=== PATIENT | female | born 1945 ===

== ENCOUNTER 2018-03-14 10:04 | Inpatient (IN) | payer MEDICARE, MEDICAID ==
[2018-03-14 10:08] VITALS: BMI 37.8
[2018-03-14] MEDS ORDERED: Sodium Chloride 0.9% 500 ML IV STA (10:37)
[2018-03-14] MEDS ORDERED: DiphenhydrAMINE 50 mg/ml Inj IV STA (10:43)
--- NOTE | 2018-03-14 10:55 | ED PDOC ---
HPI: General Adult Time Seen by Provider: 03/14/18 10:22 Chief Complaint (Nursing): Abnormal Skin Integrity Chief Complaint (Provider): Itching History Per: Patient, Family History/Exam Limitations: no limitations Onset/Duration Of Symptoms: Days (1 month) Additional Complaint(s): Pt. with itching all over with spread out rash on her body and extremities. No new food, drinks, lotion, or anything new. Did not take anything for it. Went to pcp yesterday and told to go to the ER. Pt. has acute renal insuff and liver fibrosis. Pt. denies any pain, chest pain, dyspnea, weakness, headaches, dizziness, or any other symptoms. Past Medical History Reviewed: Nursing Documentation, Vital Signs Vital Signs: Last Vital Signs Temp 98.3 F 03/14/18 10:06 Pulse 77 03/14/18 10:06 Resp 20 03/14/18 10:06 BP 169/76 H 03/14/18 10:06 Pulse Ox 98 03/14/18 12:49 - Medical History PMH: Diabetes, HTN, Hyperlipidemia - Surgical History Other surgeries: left leg surgery for screws and then surgery for infection - Family History Family History: States: Unknown Family Hx - Living Arrangements Living Arrangements: With Family - Social History Current smoker - smoking cessation education provided: No - Home Medications Home Medications: Ambulatory Orders Medication Instructions Recorded Dexlansoprazole [Dexilant] 30 mg PO DAILY 03/14/18 Ferrous Gluconate [Ferrous 324 mg PO BID 03/14/18 Gluconate] Gabapentin [Neurontin] 300 mg PO Q12 03/14/18 Hydroxychloroquine Sulfate 200 mg PO Q12 03/14/18 [Plaquenil] Insulin Glargine, Recombina 30 unit SC BID 03/14/18 [Lantus] Insulin Lispro [humALOG] 10 unit SC ACTID 03/14/18 Isosorbide Mononitrate ER [Imdur 30 mg PO DAILY 03/14/18 ER] Losartan [Cozaar] 50 mg PO DAILY 03/14/18 Metoprolol Tartrate [Lopressor] 100 mg PO Q12 03/14/18 - Allergies Allergies/Adverse Reactions: Allergies Allergy/AdvReac Type Severity Reaction Status Date / Time No Known Allergies Allergy Verified 03/14/18 10:31 Review of Systems ROS Statement: Except As Marked, All Systems Reviewed And Found Negative Skin: Positive for: Rash Physical Exam - Reviewed Nursing Documentation Reviewed: Yes Vital Signs Reviewed: Yes - Physical Exam Appears: Positive for: Non-toxic, No Acute Distress Head Exam: Positive for: ATRAUMATIC, NORMOCEPHALIC Skin: Positive for: Warm, Rash (R lower leg, back, chest, abd, arms with patches of blanching erythema, nontender, , no fluctuance, no dc in uriticarial pattern. r upper lateral leg with 2 patches scaley erythematic 4cm diameter areas in psoriatic pattern that are nontender, no fluctuance.). Negative for: Pallor Eye Exam: Positive for: EOMI, Normal appearance, PERRL ENT: Positive for: Normal ENT Inspection. Negative for: Nasal Congestion, Pharyngeal Erythema, Tonsillar Exudate Neck: Positive for: Painless ROM, Supple Cardiovascular/Chest: Positive for: Regular Rate, Rhythm, Chest Non Tender. Negative for: Edema Respiratory: Positive for: Normal Breath Sounds. Negative for: Decreased Breath Sounds, Wheezing Gastrointestinal/Abdominal: Positive for: Soft. Negative for: Tenderness Back: Negative for: L CVA Tenderness, R CVA Tenderness Extremity: Positive for: Normal ROM, Other (L leg with darkened skin; no erythema; nontender; old per pt.). 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 Negative for: Motor/Sensory Deficits, Facial Droop - Laboratory Results Result Diagrams: 03/14/18 10:42 03/14/18 10:42 Interpretation Of Abn Labs: 25/1.9; urine wbc - ECG ECG: Positive for: Interpreted By Me, Viewed By Wi ECG Rhythm: Positive for: Normal QRS, Normal ST Segment, Sinus Rhythm O2 Sat by Pulse Oximetry: 98 Pulse Ox Interpretation: Normal - Radiology X-Ray: Read By Radiologist X-Ray Interpretation: No Acute Disease - Progress ED Course And Treament: 1106: Pt. with rx from Dr. Hassan. Wants admit for eval of renal insuff and liver fibrosis. 1250: Stable. Spoke with Dr. Tapia. Will admit and give further orders when pt. reaches floor. Disposition - Clinical Impression Clinical Impression: UTI (urinary tract infection), Hyperkalemia, Renal insufficiency, Dermatitis - Patient ED Disposition Is Patient to be Admitted: Yes - Disposition Disposition Time: 13:03 Condition: FAIR - Pt Status Changed To: Hospital Disposition Of: Inpatient - Admit Certification Admit to Inpatient:: After my assessment, the patient will require hospitalization for at least two midnights. This is because of the severity of symptoms shown, intensity of services needed, and/or the medical risk in this patient being treated as an outpatient. - POA Present On Arrival: None
[2018-03-14 11:10] LABS: BASO % 0.4 % (0.0-2.0); EOS # 0.7 K/uL (0.0-0.7); EOS % 7.4 % (0.0-4.0); HEMOGLOBIN 10.3 g/dL (12.0-16.0); LYMPH # 2.2 K/uL (1.0-4.3); LYMPH % 23.6 % (20.0-40.0); MEAN CELL VOLUME 89.9 fl (81.0-99.0); MEAN CORPUSCULAR HEMOGLOBIN 30.2 pg (27.0-31.0); MEAN CORPUSCULAR HGB CONC 33.6 g/dL (33.0-37.0); MEAN PLATELET VOLUME 8.9 fl (7.2-11.7); MONO # 0.9 K/uL (0.0-0.8); MONO % 10.1 % (0.0-10.0); NEUT # 5.4 K/uL (1.8-7.0); NEUT % 58.5 % (50.0-75.0); RBC 3.41 Mil/uL (3.80-5.20); RED CELL DISTRIBUTION WIDTH 15.7 % (11.5-14.5); WHITE BLOOD COUNT 9.3 K/uL (4.8-10.8)
[2018-03-14 11:14] LABS: PROTHROMBIN TIME 10.6 Seconds (9.8-13.1)
[2018-03-14 11:17] LABS: PARTIAL THROMBOPLASTIN TIME 31.4 Seconds (25.6-37.1)
[2018-03-14 11:24] LABS: ALB/GLOB RATIO 0.9 (1.0-2.1); ALBUMIN 3.6 g/dL (3.5-5.0); ALT/SGPT 37 U/L (9-52); AST/SGOT 39 U/L (14-36); BLOOD UREA NITROGEN 25 mg/dl (7-17); GFR AFRICAN-AMERICAN 32; GFR NON-AFRICAN AMERICAN 26
[2018-03-14] MEDS ORDERED: DiphenhydrAMINE 50 mg/ml Inj ONE (11:34)
[2018-03-14 12:26] LABS: RENAL EPITHELIAL 1 /hpf (0-3); SQUAMOUS EPITHIAL 26 /hpf (0-5); URINE BACTERIA MANY (<OCC); URINE BILIRUBIN NEGATIVE (NEGATIVE); URINE BLOOD NEGATIVE (NEGATIVE); URINE CLARITY CLOUDY (Clear); URINE COLOR YELLOW (YELLOW); URINE GLUCOSE (UA) NEG (Normal); URINE LEUKOCYTE ESTERASE LARGE Leu/uL (Negative); URINE PROTEIN >=500 mg/dL (NEGATIVE); URINE UROBILINOGEN 0.2-1.0 mg/dL (0.2-1.0)
--- NOTE | 2018-03-14 12:37 | RAD ---
Date of service: 03/14/2018 HISTORY: dyspnea COMPARISON: No prior. FINDINGS: LUNGS: No active pulmonary disease. PLEURA: No significant pleural effusion identified, no pneumothorax apparent. CARDIOVASCULAR: No radiographic findings to suggest acute or significant cardiovascular disease. OSSEOUS STRUCTURES: No significant abnormalities. VISUALIZED UPPER ABDOMEN: Normal. OTHER FINDINGS: None. IMPRESSION: No active disease.
[2018-03-14] MEDS ORDERED: Sod Polystyrene Sulf 15 gm/60 ml Susp PO STA (12:39)
[2018-03-14] MEDS ORDERED: Albuterol 0.083% Inhal Sol (2.5 mg/3 mL) UD INH STA (12:39)
[2018-03-14] MEDS ORDERED: cefTRIAXone (Rocephin) 1 gm Inj IV STA (12:40)
[2018-03-14] MEDS ORDERED: Sod Polystyrene Sulf 15 gm/60 ml Susp ONE (12:45)
[2018-03-14] MEDS ORDERED: cefTRIAXone 1 gm/NS 100ML IVPB ONE (12:45)
[2018-03-14] MEDS ORDERED: Albuterol 0.083% Inhal Sol (2.5 mg/3 mL) UD ONE (12:45)
[2018-03-14] MEDS ORDERED: cefTRIAXone (Rocephin) 1 gm Inj ONE (12:46)
--- NOTE | 2018-03-14 17:11 | CARD ---
APPROVED REPORT Date of service: 03/14/2018 EKG Measurement Heart [id number] <Conclusion> Normal sinus rhythm Minimal voltage criteria for LVH, may be normal variant Borderline ECG
[2018-03-14] MEDS ORDERED: Insulin Regular 100 units/ml ONE (23:15)
[2018-03-14] MEDS: Insulin Detemir 100 Units/ml Inj SC SCH (23:45)
[2018-03-15 06:23] LABS: BASO # 0.1 K/uL (0.0-0.2); BASO % 0.8 % (0.0-2.0); EOS % 0.1 % (0.0-4.0); HEMOGLOBIN 10.7 g/dL (12.0-16.0); LYMPH # 1.5 K/uL (1.0-4.3); LYMPH % 17.3 % (20.0-40.0); MEAN CELL VOLUME 89.7 fl (81.0-99.0); MEAN CORPUSCULAR HGB CONC 33.5 g/dL (33.0-37.0); MEAN PLATELET VOLUME 8.9 fl (7.2-11.7); MONO # 0.6 K/uL (0.0-0.8); MONO % 6.7 % (0.0-10.0); NEUT # 6.7 K/uL (1.8-7.0); NEUT % 75.1 % (50.0-75.0); NRBC % 0.1 % (0.0-0.0); RBC 3.58 Mil/uL (3.80-5.20); RED CELL DISTRIBUTION WIDTH 15.3 % (11.5-14.5); WHITE BLOOD COUNT 8.9 K/uL (4.8-10.8)
[2018-03-15 06:32] LABS: CALCIUM 9.5 mg/dL (8.4-10.2)
[2018-03-15] MEDS ORDERED: DiphenhydrAMINE 50 mg/ml Inj ONE (06:38)
[2018-03-15] MEDS ORDERED: cefTRIAXone (Rocephin) 1 gm Inj IM ONE (08:27)
[2018-03-15] MEDS ORDERED: Sodium Chloride 0.9% 1,000 ML IV SCH ×2 (08:30→19:29)
[2018-03-15] MEDS ORDERED: cefTRIAXone (Rocephin) 1 gm Inj ONE (08:58)
[2018-03-15] MEDS: Insulin Lispro (humaLOG) 100 Units/ml Inj SC SCH ×4 (09:39→21:57)
[2018-03-15] MEDS: Pantoprazole 40 mg EC Tab PO SCH (13:05)
[2018-03-15] MEDS: Insulin Detemir 100 Units/ml Inj SC SCH (21:58)
--- NOTE | 2018-03-15 22:04 | CP.PCM.HP ---
Present on Admission - Present on Admission Any Indicators Present on Admission: No Review of Systems - Review of Systems All systems: reviewed and no additional remarkable complaints except Review of Systems: As per HPI Past Patient History - Past Medical History & Family History Past Medical History?: Yes Past Family History: Reviewed and not pertinent - Past Social History Smoking Status: Never Smoked Alcohol: None Drugs: Denies - CARDIAC Hx Hypercholesterolemia: Yes Hx Hypertension: Yes - PULMONARY Hx Respiratory Disorders: No - NEUROLOGICAL Hx Neurological Disorder: No - HEENT Hx HEENT Problems: No - RENAL Hx Chronic Kidney Disease: No - ENDOCRINE/METABOLIC Hx Diabetes Mellitus Type 2: Yes - HEMATOLOGICAL/ONCOLOGICAL Hx Blood Disorders: No - INTEGUMENTARY Other/Comment: genreralized rash - MUSCULOSKELETAL/RHEUMATOLOGICAL Hx Musculoskeletal Disorders: No Hx Falls: No - GASTROINTESTINAL Hx Gastrointestinal Disorders: No - GENITOURINARY/GYNECOLOGICAL Hx Genitourinary Disorders: No - PSYCHIATRIC Hx Psychophysiologic Disorder: No Hx Substance Use: No - SURGICAL HISTORY Other/Comment: left leg sx - ANESTHESIA Hx Anesthesia: Yes Hx Anesthesia Reactions: No Hx Malignant Hyperthermia: No Has any member of the family had a problem w/ anesthesia?: No Meds Allergies/Adverse Reactions: Allergies Allergy/AdvReac Type Severity Reaction Status Date / Time No Known Allergies Allergy Verified 03/14/18 10:31 Physical Exam - Constitutional Appears: No Acute Distress, Chronically Ill - Head Exam Head Exam: ATRAUMATIC, NORMAL INSPECTION, NORMOCEPHALIC - Eye Exam Eye Exam: EOMI, Normal appearance, PERRL Pupil Exam: NORMAL ACCOMODATION, PERRL - ENT Exam ENT Exam: Mucous Membranes Moist, Normal Exam - Neck Exam Neck exam: Positive for: Full Rom, Normal Inspection - Respiratory Exam Respiratory Exam: Clear to Auscultation Bilateral, NORMAL BREATHING PATTERN. absent: Rales - Cardiovascular Exam Cardiovascular Exam: REGULAR RHYTHM, +S1, +S2 - GI/Abdominal Exam GI & Abdominal Exam: Normal Bowel Sounds, Soft. absent: Tenderness - Extremities Exam Additional comments: Left Leg Dark discoloration with Old healed Scar on lower leg and deformity. Right scaly Rashes and Lesions with Excoriations from the Lower leg to thigh. The Rash is not warm or tender. - Back Exam Back exam: NORMAL INSPECTION - Neurological Exam Neurological exam: Alert, CN II-XII Intact, Normal Gait, Oriented x3, Reflexes Normal - Psychiatric Exam Psychiatric exam: Normal Affect, Normal Mood - Skin Skin Exam: Dry, Intact, Normal Color, Warm Results - Vital Signs Recent Vital Signs: Last Vital Signs Temp 98 F 03/15/18 20:41 Pulse 84 03/15/18 21:52 Resp 20 03/15/18 20:41 BP 172/76 H 03/15/18 21:52 Pulse Ox 94 L 03/15/18 20:41 - Labs Result Diagrams: 03/15/18 06:15 03/15/18 06:15 Labs: Laboratory Results - last 24 hr 03/15/18 03/15/18 06:15 06:15 WBC 8.9 RBC 3.58 L Hgb 10.7 L Hct 32.1 L MCV 89.7 MCH 30.0 MCHC 33.5 RDW 15.3 H Plt Count 117 L MPV 8.9 Neut % (Auto) 75.1 H Lymph % (Auto) 17.3 L Gem % (Auto) 6.7 Eos % (Auto) 0.1 Baso % (Auto) 0.8 Neut # (Auto) 6.7 Lymph # (Auto) 1.5 Gem # (Auto) 0.6 Eos # (Auto) 0.0 Baso # (Auto) 0.1 Sodium 143 Potassium 5.1 H Chloride 106 Carbon Dioxide 28 Anion Gap 14 BUN 29 H Creatinine 1.8 H Est GFR ( Amer) 34 Est GFR (Non-Af Amer) 28 Random Glucose 225 H Calcium 9.5 - Imaging and Cardiology Chest x-ray Status: Report reviewed by me Additional comment: HISTORY: dyspnea COMPARISON: No prior. FINDINGS: LUNGS: No active pulmonary disease. PLEURA: No significant pleural effusion identified, no pneumothorax apparent. CARDIOVASCULAR: No radiographic findings to suggest acute or significant cardiovascular disease. OSSEOUS STRUCTURES: No significant abnormalities. VISUALIZED UPPER ABDOMEN: Normal. OTHER FINDINGS: None. IMPRESSION: No active disease. Assessment & Plan (1) POLINA (acute kidney injury) Assessment and Plan: Most Likely Prerenal IVF Nephro consult Urine Na Status: Acute (2) Scaly patch rash Assessment and Plan: Dermatitis Vs Fungal Rashes Clotrimazole and Hydrocortisone Cream Will Need skin Biopsy. Status: Acute (3) Hyperkalemia Assessment and Plan: IVF Repeat BMP Status: Acute Priority: High (4) UTI (urinary tract infection) Assessment and Plan: IV Rocephin Q24hrs Urine Culture Status: Acute Priority: High
[2018-03-16 03:19] LABS: CREATININE, RANDOM URINE 42.3 mg/dL
--- NOTE | 2018-03-16 05:50 | CON ---
Copied To: Chon Luke MD Attending MD: Chon Luke MD DATE: 03/15/2018 NEPHROLOGY CONSULTATION HISTORY OF PRESENT ILLNESS: The patient is a 72-year-old female with past medical history of hypertension, diabetes, and SLE, presented to ED with recent onset of right leg rash. Nephrology being consulted for renal insufficiency. The patient reports going to PCP shortly before presentation and was told to go to the ER; reports having scaly rash over right leg with associated swelling; patient otherwise reports feeling well. 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 PAST MEDICAL HISTORY: As above. SOCIAL HISTORY: Nonsmoker. FAMILY HISTORY: Denies any kidney disease. REVIEW OF SYSTEMS: CONSTITUTIONAL: Good appetite. No fevers or chills. HEENT: Vision is stable. No difficulty swallowing. RESPIRATORY: Denies any dyspnea. CARDIOVASCULAR: Denies chest pains or palpitations. GI: Denies nausea, vomiting, or diarrhea. : Occasionally with UTI; reports increased urinary frequency lately. MUSCULOSKELETAL: Denies any NSAIDs use for her arthralgias. Walks. NEUROLOGIC: Denies any dizziness or headache. SKIN: As per HPI. The patient also reports left lower extremity skin infection in [facility] in 08/2017. PHYSICAL EXAMINATION: VITAL SIGNS: Earlier today, blood pressure 168/83, heart rate 95, respirations 16, temperature 97.7, O2 sat 98% on room air. GENERAL: No distress. Conversing coherently in full sentences. HEENT: Moist mucous membranes. Nonicteric. No cervical lymphadenopathy. RESPIRATORY: Lungs are clear to auscultation bilaterally. No rales, no rhonchi, no wheezes. CARDIOVASCULAR: Heart sounds S1, S2 normal. No murmurs, no gallops, no rubs. GI: Abdomen is soft, nontender, and nondistended. : No bladder distension. EXTREMITIES: Mild right lower leg edema. SKIN: Warm. No cyanosis. The patient with raised scaly plaques over right lower leg. NEUROLOGIC: No tremor. PSYCHIATRIC: Normal affect. LABORATORY DATA: CBC: WBC 8.9, hemoglobin 7.7, hematocrit 32.1, platelets 117. Chemistry panel: Sodium 143, potassium 5.1 decreased from 5.4, chloride 106, bicarb 28, BUN 29, creatinine 1.8, glucose 225. Albumin from yesterday is 3.6. Urine studies; urine protein greater than 500 mg/dL, large leukocyte esterase, 110 wbc's per high power field, 9 rbc's per high power field, 26 squamous epithelial cells per high power field, many bacteria. Chest x-ray directly visualized, lungs clear. ASSESSMENT AND PLAN: 1. Chronic kidney disease. Baseline renal function not available as we have no previous labs. However, renal function is currently stable; patient with mild hyperkalemia in the setting of being on ARB; has had some issues with hyperkalemia in the past. Agree with IV fluids, we will decrease rate to 50 mL per hour. Low potassium diet. Potassium still not controlled, we will hold losartan tomorrow. Agree with Kayexalate; as an outpatient, the patient may need to be on standing dose of potassium binding resin. Avoid nephrotoxic agents (NSAIDs, phosphate enema, etc.). 2. Proteinuria, significant proteinuria on urinalysis; in the setting of having possibility of lupus nephritis exists; any previous workup done. We will obtain random urine for protein, creatinine. We will obtain C3, C4, anti-double stranded DNA, anti-Elkins antibodies to look for evidence of lupus activity. We will continue Losartan for anti-proteinuric effect. 3. Hypertensive chronic kidney disease. Blood pressure currently elevated, likely worsened by being on IV fluids. We will give dose of Lasix 20 mg IV push. Continue current blood pressure medications of metoprolol 100 mg every 12 hours, Imdur 30 mg daily, and Losartan 50 mg daily. 4. Anemia. We will check iron studies to see if the patient has anemia of chronic kidney disease. 5. Urinary tract infection. The patient with gram-positive cocci in urine. We will await sensitivities; should those antibiotics for creatinine clearance less than 40. Thank you for this referral. We will be following up closely. Chon Luke MD
[2018-03-16] MEDS: Insulin Lispro (humaLOG) 100 Units/ml Inj SC SCH ×4 (07:02→22:36)
[2018-03-16 07:23] LABS: CALCIUM 8.8 mg/dL (8.4-10.2)
[2018-03-16 07:32] LABS: IRON 113 ug/dL (37-170)
[2018-03-16 07:41] LABS: % IRON SATURATION 36 % (20-55); TOTAL IRON BINDING CAPACITY 309 ug/dL (250-450)
[2018-03-16 07:54] LABS: FERRITIN 60.7 ng/Ml (11.1-264.0)
[2018-03-16] MEDS ORDERED: cefTRIAXone (Rocephin) 1 gm Inj IM SCH (09:00)
[2018-03-16] MEDS: Pantoprazole 40 mg EC Tab PO SCH (09:52)
--- NOTE | 2018-03-16 11:32 | US ---
Date of service: 03/16/2018 PROCEDURE: Ultrasound of the Kidneys HISTORY: renal insufficiency, r/o hydronephrosis COMPARISON: None available. TECHNIQUE: Sonogram of the kidneys. FINDINGS: RIGHT KIDNEY: Measures: 12.4 x 3.9 x 3.8 cm. Normal in size and contour. Increased echogenicity. No stone, solid mass lesion or hydronephrosis visualized. LEFT KIDNEY: Measures: 10.2 x 3.8 x 3.6 cm. Normal in size and contour. Increased echogenicity. No stone, solid mass lesion or hydronephrosis visualized. OTHER FINDINGS: None. IMPRESSION: Increased bilateral cortical echogenicity can be seen in the setting of medical renal disease. No evidence of nephrolithiasis or hydronephrosis.
[2018-03-16 16:09] LABS: COMPLEMENT C4 21.3 mg/dL (14.0-44.0)
--- NOTE | 2018-03-16 19:16 | CP.PCM.PN ---
Subjective - Date & Time of Evaluation Date of Evaluation: 03/16/18 Time of Evaluation: 16:00 - Subjective Subjective: Patient reports feeling well; no lower ext pain; Objective - Vital Signs/Intake and Output Vital Signs (last 24 hours): Temp Pulse Resp BP Pulse Ox 97.8 F 75 20 157/71 H 97 03/16/18 16:04 03/16/18 16:04 03/16/18 16:04 03/16/18 16:04 03/16/18 16:04 - Medications Medications: Current Medications Clotrimazole (Lotrimin Af 1%) 1 applic TOP BID [facility] Last Admin: 03/16/18 17:24 Dose: 1 applic Diphenhydramine HCl (Benadryl) 25 mg PO Q6 PRN PRN Reason: Itching / Pruritus Last Admin: 03/16/18 03:11 Dose: 25 mg Ferrous Gluconate (Fergon) 324 mg PO BID [facility] Last Admin: 03/16/18 17:24 Dose: 324 mg Gabapentin (Neurontin) 300 mg PO Q12 [facility] Last Admin: 03/16/18 09:52 Dose: 300 mg Heparin Sodium (Porcine) (Heparin) 5,000 units SC Q8 [facility] PRN Reason: Protocol Last Admin: 03/16/18 17:23 Dose: 5,000 units Hydrocortisone (Cortizone 2.5% Cream) 1 applic TP BID [facility] Last Admin: 03/16/18 17:24 Dose: 1 applic Hydroxychloroquine Sulfate (Plaquenil) 200 mg PO Q12 [facility] PRN Reason: Protocol Last Admin: 03/16/18 09:52 Dose: 200 mg Ceftazidime 1 gm/ Sodium (Chloride) 100 mls @ 100 mls/hr IV DAILY [facility] PRN Reason: Protocol Last Admin: 03/16/18 12:41 Dose: 100 mls/hr Insulin Detemir (Levemir) 30 units SC HS [facility] Last Admin: 03/15/18 21:58 Dose: 30 units Insulin Human Lispro (Humalog) 0 units SC ACHS [facility] PRN Reason: Protocol Last Admin: 03/16/18 17:22 Dose: 1 unit Isosorbide Mononitrate (Imdur Er) 30 mg PO DAILY [facility] Last Admin: 03/16/18 09:49 Dose: 30 mg Lactic Acid (Lac-Hydrin 12% Lotion (225 G)) 1 applic TOP TID [facility] Last Admin: 03/16/18 17:22 Dose: 1 applic Losartan Potassium (Cozaar) 100 mg PO DAILY [facility] Last Admin: 03/16/18 15:47 Dose: 100 mg Metoprolol Tartrate (Lopressor) 100 mg PO Q12 [facility] Last Admin: 03/16/18 09:50 Dose: 100 mg Pantoprazole Sodium (Protonix Ec Tab) 40 mg PO DAILY [facility] Last Admin: 03/16/18 09:52 Dose: 40 mg - Labs Labs: 03/15/18 06:15 03/16/18 05:15 PT 10.6 Seconds (9.8-13.1) 03/14/18 10:42 INR 1.0 03/14/18 10:42 APTT 31.4 Seconds (25.6-37.1) 03/14/18 10:42 - Constitutional Appears: Non-toxic, No Acute Distress - Eye Exam Eye Exam: Normal appearance - Respiratory Exam Respiratory Exam: Clear to Ausculation Bilateral. absent: Respiratory Distress - Cardiovascular Exam Cardiovascular Exam: RRR, +S1, +S2 - GI/Abdominal Exam GI & Abdominal Exam: Soft. absent: Distended, Tenderness - Neurological Exam Neurological Exam: Alert, Awake - Psychiatric Exam Psychiatric exam: Normal Affect, Normal Mood. absent: Agitated - Skin Skin Exam: Warm. absent: Cyanosis Assessment and Plan (1) CKD (chronic kidney disease), stage IV Assessment & Plan: Stable renal function; hyperkalemia resolved; proteinuric kidney disease in patient with both DM and SLE; lupus nephritis remains a concern and will need close f/u as outpatient; hyperkalemia resolved; -f/u anti-DS DNA Ab, anti-Sm Ab; -continue RON blockade with losartan 100 mg daily (669 mg/g proteinuria by spot ratio with patient on losartan 50 mg daily); -low K diet (patient counseled); -avoid nephrotoxic agents; Status: Chronic (2) Hypertensive chronic kidney disease Assessment & Plan: BP elevated after getting IVF yesterday; agree with increased dose of losartan; will benefit from small dose of lasix 20 mg daily; Status: Acute (3) Hyperkalemia Status: Resolved (4) SLE (systemic lupus erythematosus) Status: Chronic
--- NOTE | 2018-03-16 21:34 | CP.PCM.PN ---
Subjective - Date & Time of Evaluation Date of Evaluation: 03/16/18 Time of Evaluation: 13:30 - Subjective Subjective: Patient feels a lot better. Objective - Vital Signs/Intake and Output Vital Signs (last 24 hours): Temp Pulse Resp BP Pulse Ox 98.2 F 80 20 174/78 H 97 03/16/18 20:11 03/16/18 21:10 03/16/18 20:11 03/16/18 21:10 03/16/18 20:11 - Medications Medications: Current Medications Clotrimazole (Lotrimin Af 1%) 1 applic TOP BID [facility] Last Admin: 03/16/18 17:24 Dose: 1 applic Diphenhydramine HCl (Benadryl) 25 mg PO Q6 PRN PRN Reason: Itching / Pruritus Last Admin: 03/16/18 03:11 Dose: 25 mg Ferrous Gluconate (Fergon) 324 mg PO BID [facility] Last Admin: 03/16/18 17:24 Dose: 324 mg Gabapentin (Neurontin) 300 mg PO Q12 [facility] Last Admin: 03/16/18 21:09 Dose: 300 mg Heparin Sodium (Porcine) (Heparin) 5,000 units SC Q8 [facility] PRN Reason: Protocol Last Admin: 03/16/18 17:23 Dose: 5,000 units Hydrocortisone (Cortizone 2.5% Cream) 1 applic TP BID [facility] Last Admin: 03/16/18 17:24 Dose: 1 applic Hydroxychloroquine Sulfate (Plaquenil) 200 mg PO Q12 [facility] PRN Reason: Protocol Last Admin: 03/16/18 21:09 Dose: 200 mg Ceftazidime 1 gm/ Sodium (Chloride) 100 mls @ 100 mls/hr IV DAILY [facility] PRN Reason: Protocol Last Admin: 03/16/18 12:41 Dose: 100 mls/hr Insulin Detemir (Levemir) 30 units SC HS [facility] Last Admin: 03/15/18 21:58 Dose: 30 units Insulin Human Lispro (Humalog) 0 units SC ACHS [facility] PRN Reason: Protocol Last Admin: 03/16/18 17:22 Dose: 1 unit Isosorbide Mononitrate (Imdur Er) 30 mg PO DAILY [facility] Last Admin: 03/16/18 09:49 Dose: 30 mg Lactic Acid (Lac-Hydrin 12% Lotion (225 G)) 1 applic TOP TID [facility] Last Admin: 03/16/18 17:22 Dose: 1 applic Losartan Potassium (Cozaar) 100 mg PO DAILY [facility] Last Admin: 03/16/18 15:47 Dose: 100 mg Metoprolol Tartrate (Lopressor) 100 mg PO Q12 [facility] Last Admin: 03/16/18 21:10 Dose: 100 mg Pantoprazole Sodium (Protonix Ec Tab) 40 mg PO DAILY [facility] Last Admin: 03/16/18 09:52 Dose: 40 mg - Labs Labs: 03/15/18 06:15 03/16/18 05:15 PT 10.6 Seconds (9.8-13.1) 03/14/18 10:42 INR 1.0 03/14/18 10:42 APTT 31.4 Seconds (25.6-37.1) 03/14/18 10:42
[2018-03-16] MEDS: Insulin Detemir 100 Units/ml Inj SC SCH (22:37)
[2018-03-17] MEDS: Insulin Lispro (humaLOG) 100 Units/ml Inj SC SCH ×2 (09:15→12:44)
[2018-03-17] MEDS: Pantoprazole 40 mg EC Tab PO SCH (09:19)
[2018-03-17 16:31] VITALS: BP 160/80; PULSE 78; RESP 20; TEMP 98; O2SAT 98
--- NOTE | 2018-03-17 21:05 | CP.PCM.PN ---
Objective - Vital Signs/Intake and Output Vital Signs (last 24 hours): Temp Pulse Resp BP Pulse Ox 98.0 F 78 20 160/80 H 98 03/17/18 16:30 03/17/18 16:30 03/17/18 16:30 03/17/18 16:30 03/17/18 16:30 - Labs Labs: 03/15/18 06:15 03/16/18 05:15 PT 10.6 Seconds (9.8-13.1) 03/14/18 10:42 INR 1.0 03/14/18 10:42 APTT 31.4 Seconds (25.6-37.1) 03/14/18 10:42 Assessment and Plan (1) CKD (chronic kidney disease), stage IV Status: Chronic (2) Hypertensive chronic kidney disease Status: Acute (3) SLE (systemic lupus erythematosus) Status: Chronic
== END 2018-03-17 16:45 | disposition home or self-care (01) | DRG 690 ==
LOC: H.ER 10:04 → H.ERHOLD 12:46 → H.TEL 03-15 11:24
PROVIDERS: ADMIT Internal Medicine; ATTEND Internal Medicine
DX: N39.0 Urinary tract infection, site not specified (principal); N18.4 Chronic kidney disease, stage 4 (severe); B95.61 Methicillin susceptible Staphylococcus aureus infection as the cause of diseases classified elsewhere; E87.5 Hyperkalemia; I12.9 Hypertensive chronic kidney disease with stage 1 through stage 4 chronic kidney disease, or unspecified chronic kidney disease; E11.22 Type 2 diabetes mellitus with diabetic chronic kidney disease; M32.9 Systemic lupus erythematosus, unspecified; D63.1 Anemia in chronic kidney disease; R21 Rash and other nonspecific skin eruption; E78.5 Hyperlipidemia, unspecified; E78.00 Pure hypercholesterolemia, unspecified; Z79.899 Other long term (current) drug therapy

== ENCOUNTER 2018-05-30 08:03 | Inpatient (IN) | payer MEDICARE, MEDICAID ==
[2018-05-30] MEDS ORDERED: Labetalol 5 mg/ml Inj 20ML IVP STA ×2 (08:29→09:18)
[2018-05-30] MEDS ORDERED: Labetalol 5mg/ml (4ml) ONE ×2 (08:33→12:19)
[2018-05-30] MEDS ORDERED: Labetalol 5mg/ml (4ml) IVP STA ×2 (08:43→11:59)
[2018-05-30 09:01] LABS: BASO # 0.1 K/uL (0.0-0.2); BASO % 0.7 % (0.0-2.0); EOS # 0.1 K/uL (0.0-0.7); EOS % 0.8 % (0.0-4.0); HEMOGLOBIN 11.7 g/dL (12.0-16.0); LYMPH # 2.5 K/uL (1.0-4.3); LYMPH % 25.1 % (20.0-40.0); MEAN CELL VOLUME 89.4 fl (81.0-99.0); MEAN CORPUSCULAR HEMOGLOBIN 29.7 pg (27.0-31.0); MEAN CORPUSCULAR HGB CONC 33.3 g/dL (33.0-37.0); MEAN PLATELET VOLUME 9.4 fl (7.2-11.7); MONO # 0.7 K/uL (0.0-0.8); NEUT # 6.5 K/uL (1.8-7.0); NEUT % 66.4 % (50.0-75.0); NRBC % 0.2 % (0.0-0.0); RBC 3.94 Mil/uL (3.80-5.20); RED CELL DISTRIBUTION WIDTH 15.1 % (11.5-14.5); WHITE BLOOD COUNT 9.8 K/uL (4.8-10.8)
[2018-05-30 09:02] LABS: PROTHROMBIN TIME 11.2 Seconds (9.8-13.1)
[2018-05-30 09:05] LABS: PARTIAL THROMBOPLASTIN TIME 30.2 Seconds (25.6-37.1)
[2018-05-30 09:07] LABS: ALB/GLOB RATIO 0.8 (1.0-2.1); ALBUMIN 3.6 g/dL (3.5-5.0); CALCIUM 9.4 mg/dL (8.4-10.2)
[2018-05-30 09:18] LABS: TROPONIN I 0.023 ng/mL (0.00-0.120)
--- NOTE | 2018-05-30 09:26 | CT ---
Date of service: 05/30/2018 PROCEDURE: CT HEAD WITHOUT CONTRAST. HISTORY: r/o ICH COMPARISON: None available. TECHNIQUE: Axial computed tomography images were obtained through the head/brain without intravenous contrast. Radiation dose: Total exam DLP = 784.61 mGy-cm. This CT exam was performed using one or more of the following dose reduction techniques: Automated exposure control, adjustment of the mA and/or kV according to patient size, and/or use of iterative reconstruction technique. FINDINGS: HEMORRHAGE: No intracranial hemorrhage. BRAIN: Good corticomedullary differentiation is seen. Limited, proportional, diffuse expansion of the ventriculosulcal and cisternal spaces is appreciated with mild white matter lucency compatible with diffuse cerebral atrophy and chronic microangiopathy. No suspicious extra-axial fluid collection is identified and the midline brain anatomy appears grossly nonfocal as imaged. There is no mass effect throughout. VENTRICLES: Unremarkable. No hydrocephalus. CALVARIUM: No destructive bony lesion or displaced fracture identified including through the skullbase. PARANASAL SINUSES: Unremarkable as visualized. No significant inflammatory changes. MASTOID AIR CELLS: Unremarkable as visualized. No inflammatory changes. OTHER FINDINGS: None. IMPRESSION: Limited age-related neuro degenerative change are identified, which appear age-appropriate. No acute intracranial findings as discussed above. No fracture appreciable.
--- NOTE | 2018-05-30 13:00 | CT ---
Date of service: 05/30/2018 PROCEDURE: CT Abdomen and Pelvis without intravenous contrast HISTORY: upper abd pain COMPARISON: None. TECHNIQUE: Technique. Contrast dose: Radiation dose: Total exam DLP = 923.42 mGy-cm. This CT exam was performed using one or more of the following dose reduction techniques: Automated exposure control, adjustment of the mA and/or kV according to patient size, and/or use of iterative reconstruction technique. FINDINGS: LOWER THORAX: Unremarkable. Small hiatal hernia. LIVER: Unremarkable. No gross lesion or ductal dilatation. GALLBLADDER AND BILE DUCTS: Unremarkable. PANCREAS: Unremarkable. No gross lesion or ductal dilatation. SPLEEN: Unremarkable. ADRENALS: Unremarkable. No mass. KIDNEYS AND URETERS: Unremarkable. No hydronephrosis. No solid mass. VASCULATURE: Unremarkable. No aortic aneurysm. No aortic atherosclerotic calcification or mural plaque present. BOWEL: Unremarkable. No obstruction. No gross mural thickening. APPENDIX: Unremarkable. Normal appendix. PERITONEUM: Unremarkable. No free fluid. No free air. LYMPH NODES: Unremarkable. No enlarged lymph nodes. BLADDER: Unremarkable. REPRODUCTIVE: Calcified leiomyomatous uterus. Sigmoid colon diverticulosis. BONES: No acute fracture. OTHER FINDINGS: None. IMPRESSION: Calcified leiomyomatous uterus. Sigmoid colon diverticulosis. Small hiatal hernia.
--- NOTE | 2018-05-30 13:37 | ED PDOC ---
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 denies: Diarrhea Exacerbating Factors: None Alleviating Factors: None Past Medical History Reviewed: Historical Data, Nursing Documentation, Vital Signs Vital Signs: Last Vital Signs Temp 98.3 F 05/30/18 08:11 Pulse 99 H 05/30/18 12:18 Resp 22 05/30/18 12:18 BP 210/109 H 05/30/18 12:18 Pulse Ox 96 05/30/18 12:18 - Medical History PMH: Diabetes, HTN, Hypercholesterolemia, Hyperlipidemia Denies: Chronic Kidney Disease - Family History Family History: States: Unknown Family Hx - Living Arrangements Living Arrangements: With Family - Social History Current smoker - smoking cessation education provided: No - Immunization History Hx Tetanus Toxoid Vaccination: Yes Hx Influenza Vaccination: Yes Hx Pneumococcal Vaccination: Yes - Home Medications Home Medications: Ambulatory Orders Medication Instructions Recorded Dexlansoprazole [Dexilant] 30 mg PO DAILY 03/14/18 Ferrous Gluconate 324 mg PO BID 03/14/18 Gabapentin [Neurontin] 300 mg PO Q12 03/14/18 Hydroxychloroquine Sulfate 200 mg PO Q12 03/14/18 [Plaquenil] Insulin Glargine, Recombina 30 unit SC BID 03/14/18 [Lantus] Insulin Lispro [humALOG] 10 unit SC ACTID 03/14/18 Isosorbide Mononitrate ER [Imdur 30 mg PO DAILY 03/14/18 ER] Metoprolol Tartrate [Lopressor] 100 mg PO Q12 03/14/18 Furosemide [Lasix] 20 mg PO DAILY #30 tab 03/17/18 Losartan [Cozaar] 100 mg PO DAILY #30 tab 03/17/18 amLODIPine [Norvasc] 5 mg PO DAILY #30 tab 03/17/18 - Allergies Allergies/Adverse Reactions: Allergies Allergy/AdvReac Type Severity Reaction Status Date / Time No Known Allergies Allergy Verified 05/30/18 08:12 Review of Systems ROS Statement: Except As Marked, All Systems Reviewed And Found Negative Constitutional: Negative for: Fever ENT: Negative for: Ear Pain, Nose Discharge Cardiovascular: Negative for: Chest Pain Respiratory: Negative for: Cough Gastrointestinal: Positive for: Nausea, Vomiting, Abdominal Pain Genitourinary Female: Negative for: Dysuria, Vaginal Bleeding Musculoskeletal: Positive for: Back Pain. Negative for: Neck Pain Skin: Negative for: Rash, Lesions Neurological: Positive for: Headache, Dizziness. Negative for: Weakness, Numbness, Confusion Physical Exam - Reviewed Nursing Documentation Reviewed: Yes Vital Signs Reviewed: Yes - Physical Exam Appears: Positive for: Non-toxic, Uncomfortable (vomiiting) Head Exam: Positive for: ATRAUMATIC, NORMAL INSPECTION, NORMOCEPHALIC Skin: Positive for: Normal Color, Warm, DRY Eye Exam: Positive for: EOMI, Normal appearance, PERRL ENT: Positive for: Normal ENT Inspection, Other (dry mucous membranes) Neck: Positive for: Normal, Painless ROM Cardiovascular/Chest: Positive for: Regular Rate, Rhythm Respiratory: Positive for: CNT, Normal Breath Sounds Gastrointestinal/Abdominal: Positive for: Soft. Negative for: Tenderness, Guarding Back: Positive for: Normal Inspection Extremity: Positive for: Normal ROM Neurologic/Psych: Positive for: Alert, Oriented. 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 trop neg x1 Appears clinically dehydrated however hence 1/2 NS initiated gentle rate. Admit tele Dr Tapia market consultant medicine. Awaiting [address] FINDINGS: HEMORRHAGE: No intracranial hemorrhage. BRAIN: Good corticomedullary differentiation is seen. Limited, proportional, diffuse expansion of the ventriculosulcal and cisternal spaces is appreciated with mild white matter lucency compatible with diffuse cerebral atrophy and chronic microangiopathy. No suspicious extra-axial fluid collection is identified and the midline brain anatomy appears grossly nonfocal as imaged. There is no mass e ffect throughout. VENTRICLES: Unremarkable. No hydrocephalus. CALVARIUM: No destructive bony lesion or displaced fracture identified including through the skullbase. PARANASAL SINUSES: Unremarkable as visualized. No significant inflammatory changes. MASTOID AIR CELLS: Unremarkable as visualized. No inflammatory changes. OTHER FINDINGS: None. IMPRESSION: Limited age-related neuro degenerative change are identified, which appear age- appropriate. No acute intracranial findings as discussed above. No fracture appreciable. 1256 Abd/Pelvis CT FINDINGS: LOWER THORAX: Unremarkable. Small hiatal hernia. LIVER: Unremarkable. No gross lesion or ductal dilatation. GALLBLADDER AND BILE DUCTS: Unremarkable. PANCREAS: Unremarkable. No gross lesion or ductal dilatation. SPLEEN: Unremarkable. ADRENALS: Unremarkable. No mass. KIDNEYS AND URETERS: Unremarkable. No hydronephrosis. No solid mass. VASCULATURE: Unremarkable. No aortic aneurysm. No aortic atherosclerotic calcification or mural plaque present. BOWEL: Unremarkable. No obstruction. No gross mural thickening. APPENDIX: Unremarkable. Normal appendix. PERITONEUM: Unremarkable. No free fluid. No free air. LYMPH NODES: Unremarkable. No enlarged lymph nodes. BLADDER: Unremarkable. REPRODUCTIVE: Calcified leiomyomatous uterus. Sigmoid colon diverticulosis. BONES: No acute fracture. OTHER FINDINGS: None. IMPRESSION: Calcified leiomyomatous uterus. Sigmoid colon diverticulosis. Small hiatal hernia. 1409 Chest X-Ray FINDINGS: LUNGS: No active pulmonary disease. PLEURA: No significant pleural effusion identified, no pneumothorax apparent. CARDIOVASCULAR: No atherosclerotic calcification present No radiographic findings to suggest acute or significant cardiovascular disease. OSSEOUS STRUCTURES: No significant abnormalities. VISUALIZED UPPER ABDOMEN: Normal. OTHER FINDINGS: None. IMPRESSION: No active disease. No significant interval change compared to the prior examination(s). Disposition - Clinical Impression Clinical Impression: Hypertensive emergency, Acute renal failure, Abdominal pain - Patient ED Disposition Is Patient to be Admitted: Yes - Disposition Disposition Time: 13:01 Condition: FAIR - Pt Status Changed To: Hospital Disposition Of: Inpatient - Admit Certification Admit to Inpatient:: After my assessment, the patient will require hospitalization for at least two midnights. This is because of the severity of symptoms shown, intensity of services needed, and/or the medical risk in this patient being treated as an outpatient. - POA Present On Arrival: Poor Glycemic Control
--- NOTE | 2018-05-30 14:13 | RAD ---
Date of service: 05/30/2018 HISTORY: SOB COMPARISON: 03/14/2018. FINDINGS: LUNGS: No active pulmonary disease. PLEURA: No significant pleural effusion identified, no pneumothorax apparent. CARDIOVASCULAR: No atherosclerotic calcification present No radiographic findings to suggest acute or significant cardiovascular disease. OSSEOUS STRUCTURES: No significant abnormalities. VISUALIZED UPPER ABDOMEN: Normal. OTHER FINDINGS: None. IMPRESSION: No active disease. No significant interval change compared to the prior examination(s).
--- NOTE | 2018-05-30 15:36 | CARD ---
APPROVED REPORT Date of service: 05/30/2018 EKG Measurement Heart [id number] <Conclusion> Normal sinus rhythm Minimal voltage criteria for LVH, may be normal variant Nonspecific ST abnormality Abnormal ECG
[2018-05-30] MEDS: Insulin Lispro (humaLOG) 100 Units/ml Inj SC SCH ×2 (18:12→21:59)
[2018-05-30] MEDS: Sodium Chloride 0.45% 1,000 ML IV SCH (18:15)
[2018-05-30 20:58] LABS: SQUAMOUS EPITHIAL 3 /hpf (0-5); URINE BACTERIA RARE (<OCC); URINE BILIRUBIN NEGATIVE (NEGATIVE); URINE BLOOD NEGATIVE (NEGATIVE); URINE CLARITY SLIGHTY-CLOUDY (Clear); URINE COLOR YELLOW (YELLOW); URINE GLUCOSE (UA) >=500 mg/dL (Normal); URINE LEUKOCYTE ESTERASE NEG Leu/uL (Negative); URINE PROTEIN >=500 mg/dL (NEGATIVE); URINE UROBILINOGEN 0.2-1.0 mg/dL (0.2-1.0)
[2018-05-31] MEDS: Sodium Chloride 0.45% 1,000 ML IV SCH (06:00)
[2018-05-31] MEDS: Insulin Lispro (humaLOG) 100 Units/ml Inj SC SCH ×3 (07:04→16:47)
--- NOTE | 2018-05-31 07:30 | CP.PCM.HP ---
History of Present Illness - History of Present Illness History of Present Illness: CC: Abdominal Pain and N/V History of Present Illness: A 72yoF with H/O HTN presented with Abdominal Pain 7-7/10 epigastric with associ ated-bloody vomiting and nauseas. Denies fever, diarrhea or constipation. In the ER, patient was found in Hypertensive emergency, and admitted in telemetry after the BP stayed SBP>200 and DBP>110 despite IV Labetalol was given Denies RODRIGUEZ or Visual changes. CT Head W/O contrast- No ICH. Present on Admission - Present on Admission Any Indicators Present on Admission: No Review of Systems - Review of Systems All systems: reviewed and no additional remarkable complaints except Review of Systems: as per HPI Past Patient History - Past Medical History & Family History Past Medical History?: Yes Past Family History: Reviewed and not pertinent - Past Social History Smoking Status: Never Smoked Alcohol: None Drugs: Denies - CARDIAC Hx Cardiac Disorders: Yes Hx Hypercholesterolemia: Yes Hx Hypertension: Yes - PULMONARY Hx Respiratory Disorders: No - NEUROLOGICAL Hx Neurological Disorder: No - HEENT Hx HEENT Problems: No - RENAL Hx Chronic Kidney Disease: Yes Hx Dialysis: No Hx Kidney Stones: No Hx Neurogenic Bladder: No Hx Pyelonephritis: No Hx Renal (Kidney) Cancer: No Hx Renal Failure: No - ENDOCRINE/METABOLIC Hx Endocrine Disorders: Yes Hx Diabetes Mellitus Type 2: Yes Other/Comment: Lupus - HEMATOLOGICAL/ONCOLOGICAL Hx Blood Disorders: No Hx AIDS: No Hx Human Immunodeficiency Virus (HIV): No - INTEGUMENTARY Hx Dermatological Problems: Yes Other/Comment: Dermatitis - MUSCULOSKELETAL/RHEUMATOLOGICAL Hx Musculoskeletal Disorders: Yes Hx Falls: Yes (a month ago) - GASTROINTESTINAL Hx Gastrointestinal Disorders: No - GENITOURINARY/GYNECOLOGICAL Hx Genitourinary Disorders: Yes Hx Urinary Tract Infection: Yes - PSYCHIATRIC Hx Psychophysiologic Disorder: No Hx Substance Use: No - SURGICAL HISTORY Hx Surgeries: Yes Other/Comment: left leg sx - ANESTHESIA Hx Anesthesia: Yes Hx Anesthesia Reactions: No Hx Malignant Hyperthermia: No Meds Allergies/Adverse Reactions: Allergies Allergy/AdvReac Type Severity Reaction Status Date / Time No Known Allergies Allergy Verified 05/30/18 08:12 Physical Exam - Constitutional Appears: Well, No Acute Distress - Head Exam Head Exam: ATRAUMATIC, NORMAL INSPECTION, NORMOCEPHALIC - Eye Exam Eye Exam: EOMI, Normal appearance, PERRL Pupil Exam: NORMAL ACCOMODATION, PERRL - ENT Exam ENT Exam: Mucous Membranes Moist, Normal Exam - Neck Exam Neck exam: Positive for: Normal Inspection - Respiratory Exam Respiratory Exam: Clear to Auscultation Bilateral, NORMAL BREATHING PATTERN - Cardiovascular Exam Cardiovascular Exam: REGULAR RHYTHM, +S1, +S2 - GI/Abdominal Exam GI & Abdominal Exam: Normal Bowel Sounds, Soft. absent: Tenderness - Extremities Exam Extremities exam: Positive for: normal inspection - Back Exam Back exam: NORMAL INSPECTION - Neurological Exam Neurological exam: Alert, CN II-XII Intact, Normal Gait, Oriented x3, Reflexes Normal - Psychiatric Exam Psychiatric exam: Normal Affect, Normal Mood - Skin Skin Exam: Dry, Intact, Normal Color, Warm Results - Vital Signs Recent Vital Signs: Last Vital Signs Temp 98.0 F 05/31/18 04:42 Pulse 97 H 05/31/18 04:42 Resp 18 05/31/18 04:42 BP 163/94 H 05/31/18 04:42 Pulse Ox 96 05/31/18 04:42 - Labs Result Diagrams: 05/31/18 05:40 05/31/18 05:40 Labs: Laboratory Results - last 24 hr 05/30/18 05/30/18 05/30/18 08:19 08:46 08:46 WBC 9.8 RBC 3.94 Hgb 11.7 L Hct 35.2 MCV 89.4 MCH 29.7 MCHC 33.3 RDW 15.1 H Plt Count 109 L MPV 9.4 Neut % (Auto) 66.4 Lymph % (Auto) 25.1 [place] % (Auto) 7.0 Eos % (Auto) 0.8 Baso % (Auto) 0.7 Neut # (Auto) 6.5 Lymph # (Auto) 2.5 [place] # (Auto) 0.7 Eos # (Auto) 0.1 Baso # (Auto) 0.1 PT INR APTT Sodium 142 Potassium 4.0 Chloride 104 Carbon Dioxide 28 Anion Gap 14 BUN 23 H Creatinine 2.5 H Est GFR ( Amer) 23 Est GFR (Non-Af Amer) 19 POC Glucose (mg/dL) 235 H Random Glucose 250 H Calcium 9.4 Total Bilirubin 0.7 AST 35 ALT 31 Alkaline Phosphatase 105 Troponin I 0.0230 Total Protein 8.1 Albumin 3.6 Globulin 4.5 H Albumin/Globulin Ratio 0.8 L Urine Color Urine Clarity Urine pH Ur Specific [place] Urine Protein Urine Glucose (UA) Urine Ketones Urine Blood Urine Nitrate Urine Bilirubin Urine Urobilinogen Ur Leukocyte Esterase Urine RBC (Auto) Urine Microscopic WBC Ur Squamous Epith Cells Urine Bacteria Hyaline Casts 05/30/18 05/30/18 05/30/18 08:46 17:35 20:43 WBC RBC Hgb Hct MCV MCH MCHC RDW Plt Count MPV Neut % (Auto) Lymph % (Auto) [place] % (Auto) Eos % (Auto) Baso % (Auto) Neut # (Auto) Lymph # (Auto) [place] # (Auto) Eos # (Auto) Baso # (Auto) PT 11.2 INR 1.0 APTT 30.2 Sodium Potassium Chloride Carbon Dioxide Anion Gap BUN Creatinine Est GFR ( Amer) Est GFR (Non-Af Amer) POC Glucose (mg/dL) Random Glucose Calcium Total Bilirubin AST ALT Alkaline Phosphatase Troponin I 0.0800 Total Protein Albumin Globulin Albumin/Globulin Ratio Urine Color Yellow Urine Clarity Slighty-cloudy Urine pH 6.0 Ur Specific [place] 1.017 Urine Protein >=500 Urine Glucose (UA) >=500 Urine Ketones Negative Urine Blood Negative Urine Nitrate Negative Urine Bilirubin Negative Urine Urobilinogen 0.2-1.0 Ur Leukocyte Esterase Neg Urine RBC (Auto) 3 Urine Microscopic WBC 46 H Ur Squamous Epith Cells 3 Urine Bacteria Rare Hyaline Casts 3-5 H 05/31/18 01:45 WBC RBC Hgb Hct MCV MCH MCHC RDW Plt Count MPV Neut % (Auto) Lymph % (Auto) [place] % (Auto) Eos % (Auto) Baso % (Auto) Neut # (Auto) Lymph # (Auto) [place] # (Auto) Eos # (Auto) Baso # (Auto) PT INR APTT Sodium Potassium Chloride Carbon Dioxide Anion Gap BUN Creatinine Est GFR ( Amer) Est GFR (Non-Af Amer) POC Glucose (mg/dL) Random Glucose Calcium Total Bilirubin AST ALT Alkaline Phosphatase Troponin I 0.0590 Total Protein Albumin Globulin Albumin/Globulin Ratio Urine Color Urine Clarity Urine pH Ur Specific [place] Urine Protein Urine Glucose (UA) Urine Ketones Urine Blood Urine Nitrate Urine Bilirubin Urine Urobilinogen Ur Leukocyte Esterase Urine RBC (Auto) Urine Microscopic WBC Ur Squamous Epith Cells Urine Bacteria Hyaline Casts - Imaging and Cardiology CT abdomen/Pelvis: Status: Report reviewed by me Additional comment: Date of service: 05/30/2018 PROCEDURE: CT Abdomen and Pelvis without intravenous contrast HISTORY: upper abd pain COMPARISON: None. TECHNIQUE: Technique. Contrast dose: Radiation dose: Total exam DLP = 923.42 mGy-cm. This CT exam was performed using one or more of the following dose reduction techniques: Automated exposure control, adjustment of the mA and/or kV according to patient size, and/or use of iterative reconstruction technique. FINDINGS: LOWER THORAX: Unremarkable. Small hiatal hernia. LIVER: Unremarkable. No gross lesion or ductal dilatation. GALLBLADDER AND BILE DUCTS: Unremarkable. PANCREAS: Unremarkable. No gross lesion or ductal dilatation. SPLEEN: Unremarkable. ADRENALS: Unremarkable. No mass. KIDNEYS AND URETERS: Unremarkable. No hydronephrosis. No solid mass. VASCULATURE: Unremarkable. No aortic aneurysm. No aortic atherosclerotic calcification or mural plaque present. BOWEL: Unremarkable. No obstruction. No gross mural thickening. APPENDIX: Unremarkable. Normal appendix. PERITONEUM: Unremarkable. No free fluid. No free air. LYMPH NODES: Unremarkable. No enlarged lymph nodes. BLADDER: Unremarkable. REPRODUCTIVE: Calcified leiomyomatous uterus. Sigmoid colon diverticulosis. BONES: No acute fracture. OTHER FINDINGS: None. IMPRESSION: Calcified leiomyomatous uterus. Sigmoid colon diverticulosis. Small hiatal hernia. CT scan - head Status: Report reviewed by me Additional comment: Date of service: 05/30/2018 PROCEDURE: CT HEAD WITHOUT CONTRAST. HISTORY: r/o ICH COMPARISON: None available. TECHNIQUE: Axial computed tomography images were obtained through the head/brain without intravenous contrast. Radiation dose: Total exam DLP = 784.61 mGy-cm. This CT exam was performed using one or more of the following dose reduction techniques: Automated exposure control, adjustment of the mA and/or kV according to patient size, and/or use of iterative reconstruction technique. FINDINGS: HEMORRHAGE: No intracranial hemorrhage. BRAIN: Good corticomedullary differentiation is seen. Limited, proportional, diffuse expansion of the ventriculosulcal and cisternal spaces is appreciated with mild white matter lucency compatible with diffuse cerebral atrophy and chronic microangiopathy. No suspicious extra-axial fluid collection is identified and the midline brain anatomy appears grossly nonfocal as imaged. There is no mass effect throughout. VENTRICLES: Unremarkable. No hydrocephalus. CALVARIUM: No destructive bony lesion or displaced fracture identified including through th e skullbase. PARANASAL SINUSES: Unremarkable as visualized. No significant inflammatory changes. MASTOID AIR CELLS: Unremarkable as visualized. No inflammatory changes. OTHER FINDINGS: None. IMPRESSION: Limited age-related neuro degenerative change are identified, which appear age- appropriate. No acute intracranial findings as discussed above. No fracture appreciable. Assessment & Plan (1) Abdominal pain Assessment and Plan: PAin Mwedication PRN PAntoprazole daily Status: Acute Priority: Medium (2) Hypertensive emergency Assessment and Plan: CT Head+= No ICH Status: Acute Priority: High Comment: C/W Home Medication. IV Metoprolol 5mg IV Q6hrs PRN for SBP>180 or DBP>110. (3) POLINA (acute kidney injury) Assessment and Plan: IVF Monitor BMP Control HTN Status: Acute Priority: High (4) Diabetes mellitus type 2 in obese Status: Chronic Priority: Medium Comment: C/w Home medication. Accuccheck with SS Humalog Coverage. HgA1C
--- NOTE | 2018-05-31 07:32 | CP.PCM.PN ---
Subjective - Date & Time of Evaluation Date of Evaluation: 05/31/18 Time of Evaluation: 07:20 Objective - Vital Signs/Intake and Output Vital Signs (last 24 hours): Temp Pulse Resp BP Pulse Ox 98.0 F 97 H 18 163/94 H 96 05/31/18 04:42 05/31/18 04:42 05/31/18 04:42 05/31/18 04:42 05/31/18 04:42 - Medications Medications: Current Medications Amlodipine Besylate (Norvasc) 10 mg PO DAILY [facility] Ferrous Gluconate (Fergon) 324 mg PO BID [facility] Last Admin: 05/30/18 20:25 Dose: 324 mg Furosemide (Lasix) 20 mg PO DAILY [facility] Gabapentin (Neurontin) 300 mg PO Q12 [facility] Last Admin: 05/30/18 21:55 Dose: 300 mg Hydroxychloroquine Sulfate (Plaquenil) 200 mg PO Q12 [facility]; Protocol Last Admin: 05/30/18 21:55 Dose: 200 mg Sodium Chloride (Sodium Chloride 0.45%) 500 mls @ 100 mls/hr IV .Q5H [facility] Stop: 05/31/18 13:31 Last Admin: 05/30/18 18:57 Dose: Not Given Sodium Chloride (Sodium Chloride 0.45%) 1,000 mls @ 80 mls/hr IV .[id number] [facility] Stop: 05/31/18 16:54 Last Admin: 05/31/18 06:00 Dose: 80 mls/hr Insulin Human Lispro (Humalog) 0 units SC ACHS [facility]; Protocol Last Admin: 05/31/18 07:04 Dose: 3 units Isosorbide Mononitrate (Imdur Er) 30 mg PO DAILY [facility] Ondansetron HCl (Zofran Inj) 4 mg IVP Q6 PRN PRN Reason: Nausea/Vomiting Pantoprazole Sodium (Protonix Inj) 40 mg IVP DAILY [facility] - Labs Labs: 05/30/18 08:46 05/30/18 08:46 PT 11.2 Seconds (9.8-13.1) 05/30/18 08:46 INR 1.0 05/30/18 08:46 APTT 30.2 Seconds (25.6-37.1) 05/30/18 08:46 Assessment and Plan (1) Abdominal pain Status: Acute (2) Hypertensive emergency Status: Acute (3) POLINA (acute kidney injury) Status: Acute (4) Diabetes mellitus type 2 in obese Status: Chronic
[2018-05-31 07:33] LABS: HEMOGLOBIN 10.4 g/dL (12.0-16.0); MEAN CELL VOLUME 89.5 fl (81.0-99.0); MEAN CORPUSCULAR HEMOGLOBIN 30.3 pg (27.0-31.0); MEAN CORPUSCULAR HGB CONC 33.9 g/dL (33.0-37.0); RBC 3.43 Mil/uL (3.80-5.20); WHITE BLOOD COUNT 9.7 K/uL (4.8-10.8)
[2018-05-31 07:35] LABS: CALCIUM 8.8 mg/dL (8.4-10.2)
[2018-06-01] MEDS: Insulin Lispro (humaLOG) 100 Units/ml Inj SC SCH ×4 (08:37→22:00)
[2018-06-01] MEDS ORDERED: Sodium Chloride 0.45% 1,000 ML IV SCH (14:15)
[2018-06-01] MEDS ORDERED: Metoprolol 1 mg/ml Inj IVP PRN (16:54)
[2018-06-01] MEDS ORDERED: Metoprolol 1 mg/ml Inj IVP SCH (22:00)
--- NOTE | 2018-06-01 22:32 | CP.PCM.PN ---
Subjective - Date & Time of Evaluation Date of Evaluation: 06/01/18 Time of Evaluation: 15:15 Objective - Vital Signs/Intake and Output Vital Signs (last 24 hours): Temp Pulse Resp BP Pulse Ox 97.8 F 90 18 162/77 H 97 06/01/18 20:42 06/01/18 21:00 06/01/18 20:42 06/01/18 20:42 06/01/18 20:42 - Medications Medications: Current Medications Amlodipine Besylate (Norvasc) 10 mg PO DAILY [facility] Last Admin: 06/01/18 08:36 Dose: 10 mg Ferrous Gluconate (Fergon) 324 mg PO BID [facility] Last Admin: 06/01/18 16:50 Dose: 324 mg Furosemide (Lasix) 20 mg PO DAILY [facility] Last Admin: 06/01/18 08:37 Dose: 20 mg Gabapentin (Neurontin) 300 mg PO Q12 [facility] Last Admin: 06/01/18 21:18 Dose: 300 mg Hydroxychloroquine Sulfate (Plaquenil) 200 mg PO Q12 [facility]; Protocol Last Admin: 06/01/18 21:18 Dose: 200 mg Dextrose (Dextrose 5% In Water 1000 Ml) 1,000 mls @ 80 mls/hr IV .[id number] [facility] Stop: 06/02/18 16:20 Last Admin: 06/01/18 16:45 Dose: 80 mls/hr Insulin Human Lispro (Humalog) 0 units SC ACHS [facility]; Protocol Last Admin: 06/01/18 16:48 Dose: 2 units Isosorbide Mononitrate (Imdur Er) 30 mg PO DAILY [facility] Last Admin: 06/01/18 08:37 Dose: 30 mg Metoprolol Tartrate (Lopressor) 5 mg IVP Q6 PRN PRN Reason: Systolic Blood Pressure Last Admin: 06/01/18 17:10 Dose: 5 mg Ondansetron HCl (Zofran Inj) 4 mg IVP Q6 PRN PRN Reason: Nausea/Vomiting Last Admin: 06/01/18 08:47 Dose: 4 mg Pantoprazole Sodium (Protonix Inj) 40 mg IVP DAILY [facility] Last Admin: 06/01/18 08:36 Dose: 40 mg - Labs Labs: 05/31/18 05:40 05/31/18 05:40 PT 11.2 Seconds (9.8-13.1) 10/26/18 08:46 INR 1.0 05/30/18 08:46 APTT 30.2 Seconds (25.6-37.1) 05/30/18 08:46 Assessment and Plan (1) Abdominal pain Status: Acute (2) Hypertensive emergency Status: Acute (3) POLINA (acute kidney injury) Status: Acute (4) Diabetes mellitus type 2 in obese Status: Acute
[2018-06-02] MEDS ORDERED: Metoprolol 1 mg/ml Inj IVP PRN (06:40)
[2018-06-02] MEDS: Insulin Lispro (humaLOG) 100 Units/ml Inj SC SCH ×5 (08:52→21:34)
[2018-06-02 08:54] LABS: HEMOGLOBIN 10.3 g/dL (12.0-16.0); MEAN CELL VOLUME 89.6 fl (81.0-99.0); MEAN CORPUSCULAR HEMOGLOBIN 30.5 pg (27.0-31.0); RBC 3.37 Mil/uL (3.80-5.20); RED CELL DISTRIBUTION WIDTH 15.1 % (11.5-14.5); WHITE BLOOD COUNT 8.7 K/uL (4.8-10.8)
[2018-06-02 09:04] LABS: ALB/GLOB RATIO 0.8 (1.0-2.1); ALBUMIN 2.9 g/dL (3.5-5.0); CALCIUM 8.9 mg/dL (8.4-10.2)
--- NOTE | 2018-06-02 22:44 | CP.PCM.PN ---
Subjective - Date & Time of Evaluation Date of Evaluation: 06/02/18 Time of Evaluation: 07:10 - Subjective Subjective: Seen and examined at the bed side. abdominal pain has subsided. Renal Insufficiency has remained almost the same despite IVF. Objective - Vital Signs/Intake and Output Vital Signs (last 24 hours): Temp Pulse Resp BP Pulse Ox 97.6 F 86 18 152/78 H 97 06/02/18 20:03 06/02/18 21:32 06/02/18 20:03 06/02/18 21:32 06/02/18 20:03 Intake and Output: 06/02/18 06/03/18 18:59 06:59 Intake Total 2160 Balance 2160 - Medications Medications: Current Medications Amlodipine Besylate (Norvasc) 10 mg PO DAILY [facility] Last Admin: 06/02/18 08:54 Dose: 10 mg Ferrous Gluconate (Fergon) 324 mg PO BID [facility] Last Admin: 06/02/18 17:56 Dose: 324 mg Furosemide (Lasix) 20 mg PO DAILY [facility] Last Admin: 06/02/18 08:53 Dose: 20 mg Gabapentin (Neurontin) 300 mg PO Q12 [facility] Last Admin: 06/02/18 21:33 Dose: 300 mg Hydroxychloroquine Sulfate (Plaquenil) 200 mg PO Q12 [facility]; Protocol Last Admin: 06/02/18 21:33 Dose: 200 mg Dextrose (Dextrose 5% In Water 1000 Ml) 1,000 mls @ 80 mls/hr IV .[id number] [facility] Stop: 06/03/18 09:45 Last Admin: 06/02/18 13:18 Dose: 80 mls/hr Insulin Human Lispro (Humalog) 0 units SC ACHS [facility]; Protocol Last Admin: 06/02/18 21:34 Dose: Not Given Isosorbide Mononitrate (Imdur Er) 30 mg PO DAILY [facility] Last Admin: 06/02/18 08:53 Dose: 30 mg Metoprolol Tartrate (Lopressor) 5 mg IVP Q6 PRN PRN Reason: Systolic Blood Pressure Metoprolol Tartrate (Lopressor) 25 mg PO Q12 [facility] Last Admin: 06/02/18 21:32 Dose: 25 mg Ondansetron HCl (Zofran Inj) 4 mg IVP Q6 PRN PRN Reason: Nausea/Vomiting Last Admin: 06/01/18 08:47 Dose: 4 mg Pantoprazole Sodium (Protonix Inj) 40 mg IVP DAILY [facility] Last Admin: 06/02/18 08:55 Dose: 40 mg - Labs Labs: 06/02/18 08:47 06/02/18 08:47 PT 11.2 Seconds (9.8-13.1) 05/30/18 08:46 INR 1.0 05/30/18 08:46 APTT 30.2 Seconds (25.6-37.1) 05/30/18 08:46 - Constitutional Appears: Well, No Acute Distress - Head Exam Head Exam: ATRAUMATIC, NORMAL INSPECTION, NORMOCEPHALIC - Eye Exam Eye Exam: EOMI, Normal appearance, PERRL Pupil Exam: NORMAL ACCOMODATION, PERRL - ENT Exam ENT Exam: Mucous Membranes Moist, Normal Exam - Neck Exam Neck Exam: Full ROM, Normal Inspection. absent: Lymphadenopathy - Respiratory Exam Respiratory Exam: Clear to Ausculation Bilateral, NORMAL BREATHING PATTERN - Cardiovascular Exam Cardiovascular Exam: REGULAR RHYTHM, +S1, +S2. absent: Murmur - GI/Abdominal Exam GI & Abdominal Exam: Soft, Normal Bowel Sounds. absent: Tenderness - Extremities Exam Extremities Exam: Full ROM, Normal Capillary Refill, Normal Inspection. absent: Joint Swelling, Pedal Edema - Back Exam Back Exam: NORMAL INSPECTION - Neurological Exam Neurological Exam: Alert, Awake, CN II-XII Intact, Normal Gait, Oriented x3 - Psychiatric Exam Psychiatric exam: Normal Affect, Normal Mood - Skin Skin Exam: Dry, Intact, Normal Color, Warm Assessment and Plan (1) Abdominal pain Assessment & Plan: Pain Medication PRN Pantoprazole daily Status: Acute Priority: Medium (2) Hypertensive emergency- Fairly Controlled Assessment and Plan: CT Head+= No ICH Status: Acute Priority: High Comment: C/W Home Medication. IV Metoprolol 5mg IV Q6hrs PRN for SBP>180 or DBP>110. Add Metoprolol 25mg BID (3) POLINA (acute kidney injury)- Worsened Assessment and Plan: IVF Monitor BMP Control HTN PTH Urine Esonophils and Sodium Status: Acute Priority: High (4) Diabetes mellitus type 2 in obese Status: Chronic Priority: Medium Comment: C/w Home medication. Accuccheck with SS Humalog Coverage. HgA1C Status: Acute
[2018-06-03 06:13] LABS: ALB/GLOB RATIO 0.8 (1.0-2.1); ALBUMIN 2.6 g/dL (3.5-5.0); CALCIUM 8.5 mg/dL (8.4-10.2)
[2018-06-03] MEDS: Insulin Lispro (humaLOG) 100 Units/ml Inj SC SCH ×4 (08:33→21:37)
[2018-06-03] MEDS: Pantoprazole 40 mg EC Tab PO SCH (08:55)
--- NOTE | 2018-06-03 11:23 | US ---
Date of service: 06/03/2018 PROCEDURE: Ultrasound of the Kidneys HISTORY: ARF COMPARISON: CT scan of the abdomen pelvis dated 05/30/2018; renal ultrasound dated 03/16/2018. TECHNIQUE: Sonogram of the kidneys. FINDINGS: RIGHT KIDNEY: Measures: 12.3 x 4.7 x 5.7 cm. Normal in size and contour. Increased cortical echogenicity. No stone, solid mass lesion or hydronephrosis visualized. LEFT KIDNEY: Measures: 12.8 x 4.4 x 5.7 cm. Normal in size and contour. Increased cortical echogenicity. No stone, solid mass lesion or hydronephrosis visualized. OTHER FINDINGS: None. IMPRESSION: Increased bilateral cortical echogenicity can be seen in the setting of medical renal disease. No evidence of nephrolithiasis or hydronephrosis.
--- NOTE | 2018-06-03 12:02 | CP.PCM.PN ---
Subjective - Date & Time of Evaluation Date of Evaluation: 06/03/18 Time of Evaluation: 11:20 - Subjective Subjective: Seen and examined at the bed side. Azotemia worsened today. BP FAirly controlled. D/c [place], and Analytics Manager consulted today. Denies fever or chills. Objective - Vital Signs/Intake and Output Vital Signs (last 24 hours): Temp Pulse Resp BP Pulse Ox 98.1 F 87 18 181/77 H 98 06/03/18 08:12 06/03/18 09:00 06/03/18 08:12 06/03/18 08:49 06/03/18 08:12 Intake and Output: 06/03/18 06/03/18 06:59 18:59 Intake Total 2160 Balance 2160 - Medications Medications: Current Medications Amlodipine Besylate (Norvasc) 10 mg PO DAILY [facility] Last Admin: 06/03/18 08:49 Dose: 10 mg Ferrous Gluconate (Fergon) 324 mg PO BID [facility] Last Admin: 06/03/18 08:32 Dose: 324 mg Furosemide (Lasix) 20 mg PO DAILY [facility] Last Admin: 06/02/18 08:53 Dose: 20 mg Gabapentin (Neurontin) 300 mg PO Q12 [facility] Last Admin: 06/03/18 08:49 Dose: 300 mg Hydroxychloroquine Sulfate (Plaquenil) 200 mg PO Q12 [facility]; Protocol Last Admin: 06/03/18 08:50 Dose: 200 mg Insulin Human Lispro (Humalog) 0 units SC ACHS [facility]; Protocol Last Admin: 06/03/18 08:33 Dose: 3 units Isosorbide Mononitrate (Imdur Er) 30 mg PO DAILY [facility] Last Admin: 06/03/18 08:48 Dose: 30 mg Metoprolol Tartrate (Lopressor) 25 mg PO Q12 [facility] Last Admin: 06/03/18 08:49 Dose: 25 mg Ondansetron HCl (Zofran Inj) 4 mg IVP Q6 PRN PRN Reason: Nausea/Vomiting Last Admin: 06/01/18 08:47 Dose: 4 mg Pantoprazole Sodium (Protonix Ec Tab) 40 mg PO DAILY [facility] Last Admin: 06/03/18 08:55 Dose: 40 mg - Labs Labs: 06/02/18 08:47 06/03/18 04:20 PT 11.2 Seconds (9.8-13.1) 05/30/18 08:46 INR 1.0 05/30/18 08:46 APTT 30.2 Seconds (25.6-37.1) 05/30/18 08:46 - Constitutional Appears: Well, No Acute Distress - Head Exam Head Exam: ATRAUMATIC, NORMAL INSPECTION, NORMOCEPHALIC - Eye Exam Eye Exam: EOMI, Normal appearance, PERRL Pupil Exam: NORMAL ACCOMODATION, PERRL - ENT Exam ENT Exam: Mucous Membranes Moist, Normal Exam - Neck Exam Neck Exam: Full ROM, Normal Inspection. absent: Lymphadenopathy - Respiratory Exam Respiratory Exam: Clear to Ausculation Bilateral, NORMAL BREATHING PATTERN - Cardiovascular Exam Cardiovascular Exam: REGULAR RHYTHM, +S1, +S2. absent: Murmur - GI/Abdominal Exam GI & Abdominal Exam: Soft, Normal Bowel Sounds. absent: Tenderness - Extremities Exam Extremities Exam: Full ROM, Normal Capillary Refill, Normal Inspection. absent: Joint Swelling, Pedal Edema Additional comments: Left Leg chronic changes with Hyperpigmentation. - Back Exam Back Exam: NORMAL INSPECTION - Neurological Exam Neurological Exam: Alert, Awake, CN II-XII Intact, Normal Gait, Oriented x3 - Psychiatric Exam Psychiatric exam: Normal Affect, Normal Mood - Skin Skin Exam: Dry, Intact, Normal Color, Warm Assessment and Plan (1) Abdominal pain Assessment & Plan: Assessment & Plan: Pain Medication PRN Pantoprazole daily Status: Acute Priority: Medium (2) Hypertensive emergency- Fairly Controlled Assessment and Plan: CT Head+= No ICH Status: Acute Priority: High Comment: C/W Home Medication. IV Metoprolol 5mg IV Q6hrs PRN for SBP>180 or DBP>110. CW Metoprolol 25mg BID Hydralazine 50mg Qhrs (3) POLINA (acute kidney injury)- Worsened to Creatinine 3.3 Assessment and Plan: IVF Monitor BMP Control HTN Urine Esonophils- Negative Status: Acute Priority: High (4) Diabetes mellitus type 2 in obese Status: Chronic Priority: Medium Comment: C/w Home medication. Accuccheck with SS Humalog Coverage. HgA1C Status: Chronic
--- NOTE | 2018-06-03 12:39 | CP.PCM.CON ---
History of Present Illness - History of Present Illness History of Present Illness: renal failure Past Patient History - Past Medical History & Family History Past Medical History?: Yes Past Family History: Reviewed and not pertinent - Past Social History Smoking Status: Never Smoked Alcohol: None Drugs: Denies - CARDIAC Hx Cardiac Disorders: Yes Hx Hypercholesterolemia: Yes Hx Hypertension: Yes - PULMONARY Hx Respiratory Disorders: No - NEUROLOGICAL Hx Neurological Disorder: No - HEENT Hx HEENT Problems: No - RENAL Hx Chronic Kidney Disease: Yes Hx Dialysis: No Hx Kidney Stones: No Hx Neurogenic Bladder: No Hx Pyelonephritis: No Hx Renal (Kidney) Cancer: No Hx Renal Failure: No - ENDOCRINE/METABOLIC Hx Endocrine Disorders: Yes Hx Diabetes Mellitus Type 2: Yes Other/Comment: Lupus - HEMATOLOGICAL/ONCOLOGICAL Hx Blood Disorders: No Hx AIDS: No Hx Human Immunodeficiency Virus (HIV): No - INTEGUMENTARY Hx Dermatological Problems: Yes Other/Comment: Dermatitis - MUSCULOSKELETAL/RHEUMATOLOGICAL Hx Musculoskeletal Disorders: Yes Hx Falls: Yes (a month ago) - GASTROINTESTINAL Hx Gastrointestinal Disorders: No - GENITOURINARY/GYNECOLOGICAL Hx Genitourinary Disorders: Yes Hx Urinary Tract Infection: Yes - PSYCHIATRIC Hx Psychophysiologic Disorder: No Hx Substance Use: No - SURGICAL HISTORY Hx Surgeries: Yes Other/Comment: left leg sx - ANESTHESIA Hx Anesthesia: Yes Hx Anesthesia Reactions: No Hx Malignant Hyperthermia: No Meds Allergies/Adverse Reactions: Allergies Allergy/AdvReac Type Severity Reaction Status Date / Time No Known Allergies Allergy Verified 05/30/18 08:12 - Medications Medications: Current Medications Amlodipine Besylate (Norvasc) 10 mg PO DAILY [facility] Last Admin: 06/03/18 08:49 Dose: 10 mg Ferrous Gluconate (Fergon) 324 mg PO BID [facility] Last Admin: 06/03/18 08:32 Dose: 324 mg Furosemide (Lasix) 20 mg PO DAILY [facility] Last Admin: 06/02/18 08:53 Dose: 20 mg Gabapentin (Neurontin) 300 mg PO Q12 [facility] Last Admin: 06/03/18 08:49 Dose: 300 mg Hydralazine HCl (Apresoline) 50 mg PO Q8 [facility] Hydroxychloroquine Sulfate (Plaquenil) 200 mg PO Q12 [facility]; Protocol Last Admin: 06/03/18 08:50 Dose: 200 mg Insulin Human Lispro (Humalog) 0 units SC [facility]; Protocol Last Admin: 06/03/18 12:32 Dose: 4 units Isosorbide Mononitrate (Imdur Er) 30 mg PO DAILY [facility] Last Admin: 06/03/18 08:48 Dose: 30 mg Metoprolol Tartrate (Lopressor) 25 mg PO Q12 [facility] Last Admin: 06/03/18 08:49 Dose: 25 mg Ondansetron HCl (Zofran Inj) 4 mg IVP Q6 PRN PRN Reason: Nausea/Vomiting Last Admin: 06/01/18 08:47 Dose: 4 mg Pantoprazole Sodium (Protonix Ec Tab) 40 mg PO DAILY [facility] Last Admin: 06/03/18 08:55 Dose: 40 mg Physical Exam - Constitutional Appears: No Acute Distress - Head Exam Head Exam: NORMAL INSPECTION - ENT Exam ENT Exam: Mucous Membranes Moist - Respiratory Exam Respiratory Exam: NORMAL BREATHING PATTERN - Cardiovascular Exam Cardiovascular Exam: REGULAR RHYTHM Results - Vital Signs Recent Vital Signs: Last Vital Signs Temp 98 F 06/03/18 12:34 Pulse 83 06/03/18 12:34 Resp 18 06/03/18 12:34 BP 184/82 H 06/03/18 12:34 Pulse Ox 96 06/03/18 12:34 - Labs Result Diagrams: 06/02/18 08:47 06/03/18 04:20 Labs: Laboratory Results - last 24 hr 06/02/18 06/02/18 06/03/18 16:04 21:29 04:20 Sodium 134 Potassium 4.2 Chloride 100 Carbon Dioxide 28 Anion Gap 10 BUN 30 H Creatinine 3.3 H Est GFR ( Amer) 17 Est GFR (Non-Af Amer) 14 POC Glucose (mg/dL) 288 H 176 H Random Glucose 226 H Calcium 8.5 Total Bilirubin 0.2 AST 29 ALT 31 Alkaline Phosphatase 78 Total Protein 5.9 L Albumin 2.6 L Globulin 3.3 Albumin/Globulin Ratio 0.8 L 06/03/18 06/03/18 05:29 11:29 Sodium Potassium Chloride Carbon Dioxide Anion Gap BUN Creatinine Est GFR ( Amer) Est GFR (Non-Af Amer) POC Glucose (mg/dL) 238 H 259 H Random Glucose Calcium Total Bilirubin AST ALT Alkaline Phosphatase Total Protein Albumin Globulin Albumin/Globulin Ratio Assessment & Plan - Assessment and Plan (Free Text) Assessment: CKD Plan: Was called for renal consult. Pt informed me that she is followed by Dr Cardoso as out patient. Service transferred.
[2018-06-04 05:44] LABS: HEMOGLOBIN 9.3 g/dL (12.0-16.0); MEAN CORPUSCULAR HEMOGLOBIN 30.3 pg (27.0-31.0); RBC 3.08 Mil/uL (3.80-5.20); RED CELL DISTRIBUTION WIDTH 14.5 % (11.5-14.5); WHITE BLOOD COUNT 8.6 K/uL (4.8-10.8)
[2018-06-04 05:54] LABS: CALCIUM 8.9 mg/dL (8.4-10.2)
[2018-06-04] MEDS: Insulin Lispro (humaLOG) 100 Units/ml Inj SC SCH ×5 (06:46→21:58)
[2018-06-04] MEDS: Pantoprazole 40 mg EC Tab PO SCH (09:27)
--- NOTE | 2018-06-04 10:52 | CP.PCM.CON ---
History of Present Illness - History of Present Illness History of Present Illness: REASONS FOR CONSULT : A ON CKD ANEMIA OF CKD .. H/H NOT TOO BAD UTI ? Pt was seen and case d/w dr Tapia and the OBSTETRICIAN AND GYNAECOLOGIST on the floor renal pt of [facility] for the last few years .. Being ef/u for CKD .. Her eGFR as an out pt is in the range of 20 ml/m came in with A on CKD .. All previous EMR reviewed .. Labs reviewed .. Pt was seen and examined CC: Abdominal Pain and N/V History of Present Illness: A 72yoF with H/O HTN presented with Abdominal Pain 7-02/11 epigastric with associated-bloody vomiting and nauseas. Denies fever, diarrhea or constipation. In the ER, patient was found in Hypertensive emergency, and admitted in telemetry after the BP stayed SBP>200 and DBP>110 despite IV Labetalol was given Denies RODRIGUEZ or Visual changes. CT Head W/O contrast- No ICH. Present on Admission - Present on Admission Any Indicators Present on Admission: No Review of Systems - Review of Systems All systems: reviewed and no additional remarkable complaints except Review of Systems: as per HPI Past Patient History - Past Medical History & Family History Past Medical History?: Yes Past Family History: Reviewed and not pertinent - Past Social History Smoking Status: Never Smoked Alcohol: None Drugs: Denies - CARDIAC Hx Cardiac Disorders: Yes Hx Hypercholesterolemia: Yes Hx Hypertension: Yes - PULMONARY Hx Respiratory Disorders: No - NEUROLOGICAL Hx Neurological Disorder: No - HEENT Hx HEENT Problems: No - RENAL Hx Chronic Kidney Disease: Yes Hx Dialysis: No Hx Kidney Stones: No Hx Neurogenic Bladder: No Hx Pyelonephritis: No Hx Renal (Kidney) Cancer: No Hx Renal Failure: No - ENDOCRINE/METABOLIC Hx Endocrine Disorders: Yes Hx Diabetes Mellitus Type 2: Yes Other/Comment: Lupus - HEMATOLOGICAL/ONCOLOGICAL Hx Blood Disorders: No Hx AIDS: No Hx Human Immunodeficiency Virus (HIV): No - INTEGUMENTARY Hx Dermatological Problems: Yes Other/Comment: Dermatitis - MUSCULOSKELETAL/RHEUMATOLOGICAL Hx Musculoskeletal Disorders: Yes Hx Falls: Yes (a month ago) - GASTROINTESTINAL Hx Gastrointestinal Disorders: No - GENITOURINARY/GYNECOLOGICAL Hx Genitourinary Disorders: Yes Hx Urinary Tract Infection: Yes - PSYCHIATRIC Hx Psychophysiologic Disorder: No Hx Substance Use: No - SURGICAL HISTORY Hx Surgeries: Yes Other/Comment: left leg sx - ANESTHESIA Hx Anesthesia: Yes Hx Anesthesia Reactions: No Past Patient History - Past Medical History & Family History Past Medical History?: Yes Past Family History: Reviewed and not pertinent - Past Social History Smoking Status: Never Smoked Alcohol: None Drugs: Denies - CARDIAC Hx Hypercholesterolemia: Yes Hx Hypertension: Yes - PULMONARY Hx Respiratory Disorders: No - NEUROLOGICAL Hx Neurological Disorder: No - HEENT Hx HEENT Problems: No - RENAL Hx Chronic Kidney Disease: Yes Hx Dialysis: No Hx Kidney Stones: No Hx Neurogenic Bladder: No Hx Pyelonephritis: No Hx Renal (Kidney) Cancer: No Hx Renal Failure: No - ENDOCRINE/METABOLIC Hx Diabetes Mellitus Type 2: Yes - HEMATOLOGICAL/ONCOLOGICAL Hx Blood Disorders: No Hx AIDS: No Hx Human Immunodeficiency Virus (HIV): No - INTEGUMENTARY Hx Dermatological Problems: Yes Other/Comment: Dermatitis - MUSCULOSKELETAL/RHEUMATOLOGICAL Hx Musculoskeletal Disorders: Yes Hx Falls: Yes (a month ago) - GASTROINTESTINAL Hx Gastrointestinal Disorders: No - GENITOURINARY/GYNECOLOGICAL Hx Genitourinary Disorders: Yes Hx Urinary Tract Infection: Yes - PSYCHIATRIC Hx Psychophysiologic Disorder: No Hx Substance Use: No - SURGICAL HISTORY Hx Surgeries: Yes Other/Comment: left leg sx - ANESTHESIA Hx Anesthesia: Yes Hx Anesthesia Reactions: No Hx Malignant Hyperthermia: No Meds Allergies/Adverse Reactions: Allergies Allergy/AdvReac Type Severity Reaction Status Date / Time No Known Allergies Allergy Verified 05/30/18 08:12 - Medications Medications: Current Medications Amlodipine Besylate (Norvasc) 10 mg PO DAILY [facility] Last Admin: 06/04/18 09:27 Dose: 10 mg Ferrous Gluconate (Fergon) 324 mg PO BID [facility] Last Admin: 06/04/18 09:27 Dose: 324 mg Gabapentin (Neurontin) 300 mg PO Q12 [facility] Last Admin: 06/04/18 09:28 Dose: 300 mg Hydralazine HCl (Apresoline) 50 mg PO Q8 [facility] Last Admin: 06/04/18 09:26 Dose: 50 mg Hydroxychloroquine Sulfate (Plaquenil) 200 mg PO Q12 [facility]; Protocol Last Admin: 06/03/18 21:34 Dose: 200 mg Insulin Human Lispro (Humalog) 0 units SC ACHS [facility]; Protocol Last Admin: 06/04/18 06:46 Dose: 6 units Isosorbide Mononitrate (Imdur Er) 30 mg PO DAILY [facility] Last Admin: 06/04/18 09:29 Dose: 30 mg Levofloxacin (Levaquin) 250 mg PO DAILY [facility]; Protocol Stop: 06/09/18 09:01 Metoprolol Tartrate (Lopressor) 25 mg PO Q12 [facility] Last Admin: 06/04/18 09:28 Dose: 25 mg Ondansetron HCl (Zofran Inj) 4 mg IVP Q6 PRN PRN Reason: Nausea/Vomiting Last Admin: 06/01/18 08:47 Dose: 4 mg Pantoprazole Sodium (Protonix Ec Tab) 40 mg PO DAILY [facility] Last Admin: 06/04/18 09:27 Dose: 40 mg Results - Vital Signs Recent Vital Signs: Last Vital Signs Temp 99 F 06/04/18 09:00 Pulse 86 06/04/18 09:28 Resp 18 06/04/18 09:00 BP 164/84 H 06/04/18 09:28 Pulse Ox 98 06/04/18 09:00 - Labs Result Diagrams: 06/04/18 05:00 06/04/18 05:00 Labs: Laboratory Results - last 24 hr 06/02/18 06/03/18 06/03/18 10:02 11:29 12:32 WBC RBC Hgb Hct MCV MCH MCHC RDW Plt Count Sodium Potassium Chloride Carbon Dioxide Anion Gap BUN Creatinine Est GFR ( Amer) Est GFR (Non-Af Amer) POC Glucose (mg/dL) 259 H Random Glucose Calcium Total Creatine Kinase 82 PTH Intact Whole Molec 188 H Urine Eosinophils Ur Random Sodium 06/03/18 06/03/18 06/03/18 15:19 15:19 15:55 WBC RBC Hgb Hct MCV MCH MCHC RDW Plt Count Sodium Potassium Chloride Carbon Dioxide Anion Gap BUN Creatinine Est GFR ( Amer) Est GFR (Non-Af Amer) POC Glucose (mg/dL) 230 H Random Glucose Calcium Total Creatine Kinase PTH Intact Whole Molec Urine Eosinophils Negative Ur Random Sodium 40 06/03/18 06/04/18 06/04/18 21:21 04:52 05:00 WBC 8.6 RBC 3.08 L Hgb 9.3 L Hct 27.4 L MCV 89.0 MCH 30.3 MCHC 34.0 RDW 14.5 Plt Count 55 L D Sodium Potassium Chloride Carbon Dioxide Anion Gap BUN Creatinine Est GFR ( Amer) Est GFR (Non-Af Amer) POC Glucose (mg/dL) 215 H 314 H Random Glucose Calcium Total Creatine Kinase PTH Intact Whole Molec Urine Eosinophils Ur Random Sodium 06/04/18 05:00 WBC RBC Hgb Hct MCV MCH MCHC RDW Plt Count Sodium 135 Potassium 4.5 Chloride 101 Carbon Dioxide 28 Anion Gap 11 BUN 37 H Creatinine 3.1 H Est GFR ( Amer) 18 Est GFR (Non-Af Amer) 15 POC Glucose (mg/dL) Random Glucose 257 H Calcium 8.9 Total Creatine Kinase PTH Intact Whole Molec Urine Eosinophils Ur Random Sodium Assessment & Plan - Assessment and Plan (Free Text) Assessment: A ON CKD .. R/O RENAL ARTERY OR REBECA ZHOU THROMBOSIS ANEMIA OF CKD .. MILD .. R/O OTHER ETIOLOGIES MMP THAT INCLUD .. HTN BM SLE OBESITY HYPERLEDIDIMIA P : D/W PMD AND OBSTETRICIAN AND GYNAECOLOGIST D/C IVF .. PT HAS EDEMA LASIX 40 MG ONE DOSE IVP NOW RENAL AND DIABETIC DIET 2G NA .. 2 G K .. 50 G PROTIEN .. 1800 ALYSA ADA RENAL ARTERIAL DOPLLER REPEAT U/A AND C/S .. TRX EMPERICALLY WITH LEVAQUIN WILL F/U CLOSWLY .. NO NEED FOR IMMIDIATE HD FOR NOW - Date & Time Date: 06/04/18 Time: 10:53
--- NOTE | 2018-06-04 20:53 | CP.PCM.PN ---
Subjective - Date & Time of Evaluation Date of Evaluation: 06/04/18 Time of Evaluation: 09:20 - Subjective Subjective: Seen and examined at the bed side. Azotemia improved today. BP Fairly controlled. D/w Underpresser Hand and recommend Renal U/S Doppler, and IV Lasix. Denies fever or chills. Objective - Vital Signs/Intake and Output Vital Signs (last 24 hours): Temp Pulse Resp BP Pulse Ox 97.6 F 89 16 125/69 99 06/04/18 20:00 06/04/18 20:00 06/04/18 20:00 06/04/18 20:00 06/04/18 20:00 - Medications Medications: Current Medications Amlodipine Besylate (Norvasc) 10 mg PO DAILY [facility] Last Admin: 06/04/18 09:27 Dose: 10 mg Ferrous Gluconate (Fergon) 324 mg PO BID [facility] Last Admin: 06/04/18 18:15 Dose: 324 mg Gabapentin (Neurontin) 300 mg PO Q12 [facility] Last Admin: 06/04/18 09:28 Dose: 300 mg Hydralazine HCl (Apresoline) 50 mg PO Q8 [facility] Last Admin: 06/04/18 18:18 Dose: 50 mg Hydroxychloroquine Sulfate (Plaquenil) 200 mg PO Q12 [facility]; Protocol Last Admin: 06/04/18 12:16 Dose: 200 mg Insulin Human Lispro (Humalog) 0 units SC ACHS [facility]; Protocol Last Admin: 06/04/18 18:29 Dose: 3 units Isosorbide Mononitrate (Imdur Er) 30 mg PO DAILY [facility] Last Admin: 06/04/18 09:29 Dose: 30 mg Levofloxacin (Levaquin) 250 mg PO DAILY [facility]; Protocol Stop: 06/09/18 09:01 Last Admin: 06/04/18 18:17 Dose: 250 mg Metoprolol Tartrate (Lopressor) 25 mg PO Q12 [facility] Last Admin: 06/04/18 09:28 Dose: 25 mg Ondansetron HCl (Zofran Inj) 4 mg IVP Q6 PRN PRN Reason: Nausea/Vomiting Last Admin: 06/01/18 08:47 Dose: 4 mg Pantoprazole Sodium (Protonix Ec Tab) 40 mg PO DAILY [facility] Last Admin: 06/04/18 09:27 Dose: 40 mg - Labs Labs: 06/04/18 05:00 06/04/18 05:00 PT 11.2 Seconds (9.8-13.1) 05/30/18 08:46 INR 1.0 05/30/18 08:46 APTT 30.2 Seconds (25.6-37.1) 05/30/18 08:46 - Constitutional Appears: Well, No Acute Distress - Head Exam Head Exam: ATRAUMATIC, NORMAL INSPECTION, NORMOCEPHALIC - Eye Exam Eye Exam: EOMI, Normal appearance, PERRL Pupil Exam: NORMAL ACCOMODATION, PERRL - ENT Exam ENT Exam: Mucous Membranes Moist, Normal Exam - Neck Exam Neck Exam: Full ROM, Normal Inspection. absent: Lymphadenopathy - Respiratory Exam Respiratory Exam: Clear to Ausculation Bilateral, NORMAL BREATHING PATTERN - Cardiovascular Exam Cardiovascular Exam: REGULAR RHYTHM, +S1, +S2. absent: Murmur - GI/Abdominal Exam GI & Abdominal Exam: Soft, Normal Bowel Sounds. absent: Tenderness - Extremities Exam Extremities Exam: Full ROM, Normal Capillary Refill, Normal Inspection, Pedal Edema. absent: Joint Swelling Additional comments: Right Leg. - Back Exam Back Exam: NORMAL INSPECTION - Neurological Exam Neurological Exam: Alert, Awake, CN II-XII Intact, Normal Gait, Oriented x3 - Psychiatric Exam Psychiatric exam: Normal Affect, Normal Mood - Skin Skin Exam: Dry, Intact, Normal Color, Warm Assessment and Plan (1) Abdominal pain Assessment & Plan: Assessment & Plan: Pain Medication PRN Pantoprazole daily Status: Acute Priority: Medium (2) Hypertensive emergency- Fairly Controlled Assessment and Plan: CT Head+= No ICH Status: Acute Priority: High Comment: IV Metoprolol 5mg IV Q6hrs PRN for SBP>180 or DBP>110. C/w Metoprolol, Norvasc and Hydralazine (3) POLINA (acute kidney injury) on Chronic CKD- Worsened Assessment and Plan: D/c IVFas per Underpresser Hand Recommended Monitor BMP Control HTN Status: Acute Priority: High (4) Diabetes mellitus type 2 in obese Status: Chronic Priority: Medium Comment: C/w Home medication. Accu-check with SS Humalog Coverage. Status: Chronic
--- NOTE | 2018-06-04 20:54 | PQF ---
PROVIDER RESPONSE TEXT: Acute On Chronic Renal Failure. Unable to determine Baseline GFR at this time REVIEWER QUERY TEXT: Kidney Disease, Chronic CKD Stage Hx. Chronic Kidney Disease (CKD) is documented in the H and P Please specify the disease stage (incl udes probable or suspected) Such as: -- Chronic kidney disease Stage 1 -- Chronic kidney disease Stage 2 -- Chronic kidney disease Stage 3 -- Chronic kidney disease Stage 4 -- Chronic kidney disease Stage 5 -- Chronic kidney disease Stage 5, requiring dialysis -- End Stage Renal Disease -- Other, please specify BUN: 23->25->28 Creatinine: 2.5->2.8->2.8 Est GFR ( Amer): 23->20->20 Est GFR (Non Af Amer) : 19->17->17 Stages are defined by the [employer] as follows: CKD Stage I GFR >= 90 ml / min per 1.73 m2 and persistent albuminuria CKD Stage 2 GFR between 60 and 89 with persistent albuminuria CKD Stage 3 GFR between 30 and 59 CKD Stage 4 GFR between 15 and 29 CKD Stage 5 GFR between <15 or End Stage Renal Disease The patient's Clinical Indicators include: - Query created by: Lacey Sahu on 06/02/2018 9:35 AM Electronically signed by: Louann Tapia MD 06/04/2018 8:50 PM
--- NOTE | 2018-06-04 20:54 | PQF ---
PROVIDER RESPONSE TEXT: Abdominal Pain, Unable to determine Etiology REVIEWER QUERY TEXT: Symptom Underlying Cause Please document the underlying diagnosis causing the patient?s documented Abdominal Pain; if known af ter the work up is completed OR: unable to determine Assessment and Plan: Pain Medication PRN Pantoprazole daily Status: Acute Priority: Medium The patient's Clinical Indicators include: - Query created by: Lacey Sahu on 06/02/2018 9:41 AM Electronically signed by: Louann Tapia MD 06/04/2018 8:50 PM
[2018-06-05 05:44] LABS: CALCIUM 8.6 mg/dL (8.4-10.2)
[2018-06-05] MEDS: Pantoprazole 40 mg EC Tab PO SCH (10:01)
[2018-06-05] MEDS: Insulin Lispro (humaLOG) 100 Units/ml Inj SC SCH ×4 (10:02→22:00)
[2018-06-05 10:11] LABS: MEAN CELL VOLUME 89.2 fl (81.0-99.0); MEAN CORPUSCULAR HEMOGLOBIN 29.8 pg (27.0-31.0); MEAN CORPUSCULAR HGB CONC 33.4 g/dL (33.0-37.0); RBC 3.04 Mil/uL (3.80-5.20); RED CELL DISTRIBUTION WIDTH 14.7 % (11.5-14.5); WHITE BLOOD COUNT 8.1 K/uL (4.8-10.8)
--- NOTE | 2018-06-05 10:57 | US ---
Date of service: 06/05/2018 PROCEDURE: Ultrasonography renal arterial evaluation HISTORY: arf COMPARISON: None available. TECHNIQUE: Real-time ultrasonography evaluation of the renal arteries were performed. Comparison is made to the aorta. FINDINGS: AORTA: Patent. Peak systolic velocity 94 centimeters/second RIGHT RENAL ARTERY: Renal artery to aorta ratio: 1.4 * Proximal segment: Patent. Peak systolic velocity 134 centimeters/second * Mid segment: Patent. Peak systolic velocity 108 centimeters/second * Distal segment: Patent. Peak systolic velocity 97 centimeters/second Other findings: Right Kidney measures approximately 13.8 x 6.2 x 5.9 centimeters. Normal in size and contour. Increased cortical echogenicity. No hydronephrosis or nephrolithiasis. LEFT RENAL ARTERY: Renal artery to aorta ratio: 1.7 * Proximal segment: Patent. Peak systolic velocity 162 centimeters/second * Mid segment: Patent. Peak systolic velocity 147 centimeters/second * Distal segment: Patent. Peak systolic velocity 140 centimeters/second Other findings: Left Kidney measures approximately 13.0 x 5.6 x 4.7 centimeters. Normal in size and contour. Increased cortical echogenicity. No hydronephrosis or nephrolithiasis. IMPRESSION: No evidence of renal artery stenosis. Increased cortical [place] bilaterally which can be seen with medical renal disease.
[2018-06-05 14:14] VITALS: BMI 36.9
--- NOTE | 2018-06-05 20:30 | CP.PCM.PN ---
Subjective - Date & Time of Evaluation Date of Evaluation: 06/05/18 Time of Evaluation: 13:00 - Subjective Subjective: SEEN ON RENAL F/U UTI WAS STARTED ON PO LEVAQIUN RENAL FUNCTION LITTLE WORSE .. WILL F/U CLOSELY AN OUT PT RENAL SONO WITH DOPLLER NEGATIVE PT CLINICALLY FEELS MUCH BETTER Objective - Vital Signs/Intake and Output Vital Signs (last 24 hours): Temp Pulse Resp BP Pulse Ox 98.3 F 86 18 149/75 96 06/05/18 19:52 06/05/18 19:52 06/05/18 19:52 06/05/18 19:52 06/05/18 19:52 - Medications Medications: Current Medications Amlodipine Besylate (Norvasc) 10 mg PO DAILY [facility] Last Admin: 06/05/18 10:01 Dose: 10 mg Ferrous Gluconate (Fergon) 324 mg PO BID [facility] Last Admin: 06/05/18 16:39 Dose: 324 mg Gabapentin (Neurontin) 300 mg PO Q12 [facility] Last Admin: 06/05/18 10:01 Dose: 300 mg Hydralazine HCl (Apresoline) 50 mg PO Q8 [facility] Last Admin: 06/05/18 16:39 Dose: 50 mg Hydroxychloroquine Sulfate (Plaquenil) 200 mg PO Q12 [facility]; Protocol Last Admin: 06/05/18 10:00 Dose: 200 mg Insulin Human Lispro (Humalog) 0 units SC [facility]; Protocol Last Admin: 06/05/18 16:38 Dose: Not Given Isosorbide Mononitrate (Imdur Er) 30 mg PO DAILY [facility] Last Admin: 06/05/18 10:00 Dose: 30 mg Levofloxacin (Levaquin) 250 mg PO DAILY [facility]; Protocol Stop: 06/09/18 09:01 Last Admin: 06/05/18 10:00 Dose: 250 mg Metoprolol Tartrate (Lopressor) 25 mg PO Q12 [facility] Last Admin: 06/05/18 10:02 Dose: 25 mg Ondansetron HCl (Zofran Inj) 4 mg IVP Q6 PRN PRN Reason: Nausea/Vomiting Last Admin: 06/01/18 08:47 Dose: 4 mg Pantoprazole Sodium (Protonix Ec Tab) 40 mg PO DAILY [facility] Last Admin: 06/05/18 10:01 Dose: 40 mg - Labs Labs: 06/05/18 09:34 06/05/18 05:25 PT 11.2 Seconds (9.8-13.1) 05/30/18 08:46 INR 1.0 05/30/18 08:46 APTT 30.2 Seconds (25.6-37.1) 05/30/18 08:46 Assessment and Plan - Assessment and Plan (Free Text) Assessment: SEEN ON RENAL F/U FEELS MUCH BETTER HEMODYNAMICALLY STABLE FOR D/C TODAY
--- NOTE | 2018-06-05 22:23 | CP.PCM.PN ---
Subjective - Date & Time of Evaluation Date of Evaluation: 06/05/18 Time of Evaluation: 13:35 Objective - Vital Signs/Intake and Output Vital Signs (last 24 hours): Temp Pulse Resp BP Pulse Ox 98.3 F 86 18 149/75 96 06/05/18 19:52 06/05/18 21:47 06/05/18 19:52 06/05/18 21:47 06/05/18 19:52 - Medications Medications: Current Medications Amlodipine Besylate (Norvasc) 10 mg PO DAILY [facility] Last Admin: 06/05/18 10:01 Dose: 10 mg Ferrous Gluconate (Fergon) 324 mg PO BID [facility] Last Admin: 06/05/18 16:39 Dose: 324 mg Gabapentin (Neurontin) 300 mg PO Q12 [facility] Last Admin: 06/05/18 21:47 Dose: 300 mg Hydralazine HCl (Apresoline) 50 mg PO Q8 [facility] Last Admin: 06/05/18 16:39 Dose: 50 mg Hydroxychloroquine Sulfate (Plaquenil) 200 mg PO Q12 [facility]; Protocol Last Admin: 06/05/18 21:47 Dose: 200 mg Insulin Human Lispro (Humalog) 0 units SC [facility]; Protocol Last Admin: 06/05/18 16:38 Dose: Not Given Isosorbide Mononitrate (Imdur Er) 30 mg PO DAILY [facility] Last Admin: 06/05/18 10:00 Dose: 30 mg Levofloxacin (Levaquin) 250 mg PO DAILY [facility]; Protocol Stop: 06/09/18 09:01 Last Admin: 06/05/18 10:00 Dose: 250 mg Metoprolol Tartrate (Lopressor) 25 mg PO Q12 [facility] Last Admin: 06/05/18 21:47 Dose: 25 mg Ondansetron HCl (Zofran Inj) 4 mg IVP Q6 PRN PRN Reason: Nausea/Vomiting Last Admin: 06/01/18 08:47 Dose: 4 mg Pantoprazole Sodium (Protonix Ec Tab) 40 mg PO DAILY [facility] Last Admin: 06/05/18 10:01 Dose: 40 mg - Labs Labs: 06/05/18 09:34 06/05/18 05:25 PT 11.2 Seconds (9.8-13.1) 05/30/18 08:46 INR 1.0 05/30/18 08:46 APTT 30.2 Seconds (25.6-37.1) 05/30/18 08:46 Assessment and Plan (1) Abdominal pain Status: Chronic
[2018-06-06 05:01] VITALS: RESP 18
[2018-06-06 05:52] LABS: CALCIUM 8.6 mg/dL (8.4-10.2)
[2018-06-06] MEDS: Insulin Lispro (humaLOG) 100 Units/ml Inj SC SCH ×2 (09:49→12:27)
[2018-06-06] MEDS: Pantoprazole 40 mg EC Tab PO SCH (09:50)
[2018-06-06 12:03] VITALS: BP 125/73; PULSE 81; TEMP 98.1; O2SAT 97
== END 2018-06-06 14:03 | disposition home health service (06) | DRG 683 ==
LOC: H.ER 08:03 → H.ERHOLD 13:31 → H.TEL 16:16
PROVIDERS: ADMIT Internal Medicine; ATTEND Internal Medicine
DX: N17.9 Acute kidney failure, unspecified (principal); I16.1 Hypertensive emergency; N39.0 Urinary tract infection, site not specified; N18.9 Chronic kidney disease, unspecified; I12.9 Hypertensive chronic kidney disease with stage 1 through stage 4 chronic kidney disease, or unspecified chronic kidney disease; E11.22 Type 2 diabetes mellitus with diabetic chronic kidney disease; D63.1 Anemia in chronic kidney disease; E66.9 Obesity, unspecified; Z87.440 Personal history of urinary (tract) infections; D25.9 Leiomyoma of uterus, unspecified; E11.51 Type 2 diabetes mellitus with diabetic peripheral angiopathy without gangrene; E78.00 Pure hypercholesterolemia, unspecified; Z68.36 Body mass index [BMI] 36.0-36.9, adult; E78.5 Hyperlipidemia, unspecified; E86.0 Dehydration; K44.9 Diaphragmatic hernia without obstruction or gangrene; K57.30 Diverticulosis of large intestine without perforation or abscess without bleeding; Z79.899 Other long term (current) drug therapy; L30.9 Dermatitis, unspecified; R79.89 Other specified abnormal findings of blood chemistry; M32.9 Systemic lupus erythematosus, unspecified

== ENCOUNTER 2018-06-28 11:22 | Emergency (ER) | payer MEDICARE, MEDICAID ==
[2018-06-28 11:22] VITALS: BMI 36.9
[2018-06-28] MEDS ORDERED: Sodium Chloride 0.9% 1,000 ML IV STA (11:41)
[2018-06-28] MEDS ORDERED: Iohexol 240 (50 ml) PO ONE (11:59)
--- NOTE | 2018-06-28 12:01 | ED PDOC ---
HPI: Abdomen Time Seen by Provider: 06/28/18 11:35 Chief Complaint (Nursing): GI Problem Chief Complaint (Provider): Abd pain and vomit History Per: Patient, Family History/Exam Limitations: no limitations Onset/Duration Of Symptoms: Days (few days) Outside of [place] travel?: No Current Symptoms Are (Timing): Still Present Additional Complaint(s): Pt. with epigastric pain and nausea/vomit. Nonbloody. No diarrhea, weakness, headaches, dizziness, chest pain, dyspnea, fever, cough. No back pain, dysuria. Similar last to last time she had it. No numbness, tingles. Past Medical History Reviewed: Nursing Documentation, Vital Signs Vital Signs: Last Vital Signs Temp 98.7 F 06/28/18 11:24 Pulse 112 H 06/28/18 11:24 Resp 20 06/28/18 11:24 BP 195/128 H 06/28/18 11:24 Pulse Ox 100 06/28/18 11:24 - Medical History PMH: Diabetes, HTN, Hypercholesterolemia, Hyperlipidemia, Chronic Kidney Disease Denies: HIV, Kidney Stones - Surgical History Surgical History: No Surg Hx - Family History Family History: States: Unknown Family Hx - Living Arrangements Living Arrangements: With Family - Social History Current smoker - smoking cessation education provided: No Alcohol: None Drugs: Denies - Immunization History Hx Tetanus Toxoid Vaccination: Yes Hx Influenza Vaccination: Yes Hx Pneumococcal Vaccination: Yes - Home Medications Home Medications: Ambulatory Orders Medication Instructions Recorded Dexlansoprazole [Dexilant] 30 mg PO DAILY 03/14/18 Ferrous Gluconate 324 mg PO BID 03/14/18 Gabapentin [Neurontin] 300 mg PO Q12 03/14/18 Insulin Glargine, Recombina 30 unit SC BID 03/14/18 [Lantus] Insulin Lispro [humALOG] 10 unit SC ACTID 03/14/18 Isosorbide Mononitrate ER [Imdur 30 mg PO DAILY 03/14/18 ER] Metoprolol Tartrate [Lopressor] 100 mg PO Q12 03/14/18 amLODIPine [Norvasc] 10 mg PO DAILY #30 tab 06/05/18 hydrALAZINE [Apresoline] 50 mg PO Q8 #90 tab 06/06/18 Allopurinol [Zyloprim] 100 mg PO DAILY 06/28/18 Famotidine [Pepcid] 20 mg PO DAILY PRN #6 tab 06/28/18 Febuxostat [Uloric] 40 mg PO DAILY 06/28/18 Pantoprazole Sodium [Protonix] 40 mg PO DAILY 7 Days ect 06/28/18 - Allergies Allergies/Adverse Reactions: Allergies Allergy/AdvReac Type Severity Reaction Status Date / Time No Known Allergies Allergy Verified 05/30/18 08:12 Review of Systems ROS Statement: Except As Marked, All Systems Reviewed And Found Negative Gastrointestinal: Positive for: Nausea, Vomiting, Abdominal Pain Physical Exam - Reviewed Nursing Documentation Reviewed: Yes Vital Signs Reviewed: Yes - Physical Exam Appears: Positive for: Non-toxic, No Acute Distress Head Exam: Positive for: ATRAUMATIC, NORMAL INSPECTION, NORMOCEPHALIC Skin: Positive for: Normal Color, Warm, DRY Eye Exam: Positive for: EOMI, Normal appearance, PERRL ENT: Positive for: Normal ENT Inspection Neck: Positive for: Normal, Painless ROM Cardiovascular/Chest: Positive for: Regular Rate, Rhythm Respiratory: Positive for: CNT, Normal Breath Sounds Gastrointestinal/Abdominal: Positive for: Soft, Tenderness (epigastric). Negative for: Distended, Guarding Back: Positive for: Normal Inspection. Negative for: L CVA Tenderness, R CVA Tenderness Extremity: Positive for: Normal ROM. Negative for: Tenderness, Pedal Edema Neurologic/Psych: Positive for: Alert, scientific technical writer II-XII, Oriented. Negative for: Motor/Sensory Deficits - Laboratory Results Result Diagrams: 06/28/18 12:01 06/28/18 12:01 Interpretation Of Abn Labs: bun/cr elevated same as previous - ECG ECG: Positive for: Interpreted By Me, Viewed By Me ECG Rhythm: Positive for: Normal QRS, Normal ST Segment, Sinus Rhythm O2 Sat by Pulse Oximetry: 100 Pulse Ox Interpretation: Normal - Radiology X-Ray: Interpreted by Me, Viewed By Me X-Ray Interpretation: No Acute Disease - Progress ED Course And Treament: 1611: Pt. feels much better. AAOx3. Tolerated PO. FU with pcp and GI. Small to medium size hiatal hernia with wall thickening of the distal esophagus and evidence of reflux. Findings may be secondary to protrusion of gastric mucosa however esophagitis or other intrinsic wall abnormality not excluded. Additionally, the stomach is also incompletely distended which may in part account for thick-walled appearance of gastritis or other intrinsic/invasive wall lesion should be excluded. Recommend GI consultation recommended.. Endoscopy also recommended. Disposition - Clinical Impression Clinical Impression: Esophagitis, Hiatal hernia - Patient ED Disposition Is Patient to be Admitted: No Counseled Patient/Family Regarding: Studies Performed, Diagnosis, Need For Followup - Disposition Referrals: [facility] [place] [Outside] - 06/30/18 Disposition: Routine/Home Disposition Time: 16:29 Condition: STABLE Additional Instructions: Return if not better in 3 days. Prescriptions: Famotidine [Pepcid] 20 mg PO DAILY PRN #6 tab PRN Reason: Pain Pantoprazole Sodium [Protonix] 40 mg PO DAILY 7 Days ect Instructions: Hiatal Hernia Forms: zanda (Nepali) Print Language: INDONESIAN
[2018-06-28 12:06] LABS: BASO # 0.1 K/uL (0.0-0.2); BASO % 0.8 % (0.0-2.0); EOS # 0.2 K/uL (0.0-0.7); EOS % 2.9 % (0.0-4.0); HEMOGLOBIN 9.7 g/dL (12.0-16.0); LYMPH % 25.3 % (20.0-40.0); MEAN CELL VOLUME 90.3 fl (81.0-99.0); MEAN CORPUSCULAR HEMOGLOBIN 29.8 pg (27.0-31.0); MEAN PLATELET VOLUME 9.4 fl (7.2-11.7); MONO # 0.7 K/uL (0.0-0.8); MONO % 9.2 % (0.0-10.0); NEUT # 4.8 K/uL (1.8-7.0); NEUT % 61.8 % (50.0-75.0); NRBC % 0.1 % (0.0-0.0); RBC 3.27 Mil/uL (3.80-5.20); RED CELL DISTRIBUTION WIDTH 14.9 % (11.5-14.5); WHITE BLOOD COUNT 7.8 K/uL (4.8-10.8)
[2018-06-28] MEDS ORDERED: Iohexol 240 (50 ml) ONE (12:15)
[2018-06-28 12:19] LABS: PROTHROMBIN TIME 10.8 Seconds (9.8-13.1)
[2018-06-28 12:22] LABS: PARTIAL THROMBOPLASTIN TIME 30.9 Seconds (25.6-37.1)
[2018-06-28 12:47] LABS: ALB/GLOB RATIO 0.9 (1.0-2.1); ALBUMIN 3.7 g/dL (3.5-5.0); CALCIUM 9.6 mg/dL (8.4-10.2)
[2018-06-28 12:50] LABS: TROPONIN I 0.012 ng/mL (0.00-0.120)
[2018-06-28 12:53] LABS: URINE BILIRUBIN NEGATIVE (NEGATIVE); URINE BLOOD NEGATIVE (NEGATIVE); URINE CLARITY CLEAR (Clear); URINE COLOR STRAW (YELLOW); URINE GLUCOSE (UA) NEG (Normal); URINE LEUKOCYTE ESTERASE NEG Leu/uL (Negative); URINE PROTEIN 100 mg/dL (NEGATIVE); URINE UROBILINOGEN 0.2-1.0 mg/dL (0.2-1.0)
[2018-06-28 13:31] LABS: SQUAMOUS EPITHIAL 2 /hpf (0-5); URINE AMORPHOUS SEDIMENT FEW /ul (<OCC); URINE BACTERIA OCC (<OCC)
--- NOTE | 2018-06-28 15:29 | CT ---
Date of service: 06/28/2018 PROCEDURE: CT Abdomen and Pelvis with Oral contrast. HISTORY: Pain COMPARISON: Comparison made with prior CT scan abdomen pelvis 05/30/2018. TECHNIQUE: Contiguous axial images of the abdomen and pelvis. Oral contrast was administered. No IV contrast given. Coronal and Sagittal reformats generated. Radiation dose: Total exam DLP = 1226.66 mGy-cm. This CT exam was performed using one or more of the following dose reduction techniques: Automated exposure control, adjustment of the mA and/or kV according to patient size, and/or use of iterative reconstruction technique. FINDINGS: LOWER THORAX: There appears to be some mild atelectasis both posterior lower lung tapia. Mild linear scarring also seen in the left lingular region. Heart appears mildly enlarged. Questionable tiny pericardial effusion or pericardial radial a diallo tissue. There is a small to medium size hiatal hernia with small amount of small opaque contrast material and fluid in the distal esophagus consistent with reflux. Slight wall thickening likely due to protrusion gastric mucosa however given the presence of apparent reflux,. Follow-up GI consultation and endoscopy recommended. LIVER: Liver exhibits normal size without obvious masses collections or calcifications identified on this noncontrast exam.. GALLBLADDER AND BILE DUCTS: Gallbladder physiologically distended.. No evidence of intraluminal gallbladder calculi PANCREAS: Unremarkable. No mass. No ductal dilatation. SPLEEN: Unremarkable. No splenomegaly. ADRENALS: Mildly enlarged bilateral adrenal glands. KIDNEYS AND URETERS: There is a punctate nonobstructing calcification upper pole collecting system right kidney.. No evidence of obvious renal masses or collections. BLADDER: Urinary bladder physiologically distended. No evidence of intraluminal urinary bladder calculi. The the REPRODUCTIVE: Uterus appears enlarged with a relatively large rounded soft tissue lesion that exhibits granular type calcifications consistent with calcified uterine fibroid. Additional smaller calcified uterine fibroids are also present. APPENDIX: Normal appendix. BOWEL: Evaluation of the bowel is slightly limited due to incomplete opacification. Stomach is incompletely distended which may in part account for slight thick-walled appearance however prominent rugal fold pattern is also noted. Rule out gastritis; other intrinsic/invasive wall lesion not excluded. Visualized loops of small bowel exhibit normal contour and caliber. No evidence of acute mechanical small bowel obstruction with oral contrast material seen extending into the colon to the level of the mid ascending colon region. There does appear to be a few scattered colonic diverticula along the distal descending/sigmoid colon however no radiographic evidence of acute diverticulitis. PERITONEUM: Unremarkable. No fluid collection. No free air. Small fat containing umbilical hernia. Few tiny bubbles of air seen in the left parasagittal lower subcutaneous tissues of the anterior abdomen possibly related to subcutaneous injection. Clinical correlation recommended. LYMPH NODES: Unremarkable. No enlarged lymph nodes. VASCULATURE: Unremarkable. No aortic aneurysm. Mild the aortic atherosclerotic calcification or mural plaque present. BONES: Mild multilevel degenerative spondylosis of the lower thoracic and lumbar spine. OTHER FINDINGS: None. IMPRESSION: Small to medium size hiatal hernia with wall thickening of the distal esophagus and evidence of reflux. Findings may be secondary to protrusion of gastric mucosa however esophagitis or other intrinsic wall abnormality not excluded. Additionally, the stomach is also incompletely distended which may in part account for thick-walled appearance of gastritis or other intrinsic/invasive wall lesion should be excluded. Recommend GI consultation recommended.. Endoscopy also recommended.. Punctate nonobstructing calcification upper pole right kidney. Mildly enlarged adrenal glands. Few scattered colonic diverticulosis with no radiographic evidence of acute diverticulitis. Calcified uterine fibroids. See above discussion for additional details and findings.
[2018-06-28 15:58] VITALS: RESP 19
--- NOTE | 2018-06-28 16:27 | RAD ---
Date of service: 06/28/2018 HISTORY: dyspnea COMPARISON: Comparison chest 05/30/2018. FINDINGS: LUNGS: Poor inspiration with low lung volumes, crowded bronchovascular markings and mild bibasilar atelectasis. PLEURA: No significant pleural effusion identified, no pneumothorax apparent. CARDIOVASCULAR: Aortic atherosclerotic calcification present. Heart appears mildly enlarged which may be secondary to poor inspiration... No pulmonary vascular congestion. OSSEOUS STRUCTURES: No significant abnormalities. VISUALIZED UPPER ABDOMEN: Normal. OTHER FINDINGS: None. IMPRESSION: Poor inspiration with low lung volumes, crowded bronchovascular markings and mild bibasilar atelectasis.
[2018-06-28 17:16] VITALS: BP 170/80; PULSE 89; O2SAT 98
[2018-06-28 17:27] VITALS: TEMP 97.6
--- NOTE | 2018-06-28 17:57 | CARD ---
APPROVED REPORT Date of service: 06/28/2018 EKG Measurement Heart [id number] <Conclusion> Sinus tachycardia Otherwise normal ECG
== END 2018-06-28 17:28 | disposition home or self-care (01) ==
LOC: H.ER 11:22
DX: K20.9 Esophagitis, unspecified (principal); K44.9 Diaphragmatic hernia without obstruction or gangrene; N18.9 Chronic kidney disease, unspecified; Z79.4 Long term (current) use of insulin; I12.9 Hypertensive chronic kidney disease with stage 1 through stage 4 chronic kidney disease, or unspecified chronic kidney disease
CPT/HCPCS: 71045; 74176; 80053; 81003; 83690; 84484; 85025; 85610; 85730; 93005; 96374; 99283; J2765; J7030; Q9966

== ENCOUNTER 2018-07-18 09:08 | Inpatient (IN) | payer MEDICARE, MEDICAID ==
[2018-07-18 09:08] VITALS: BMI 36.9
[2018-07-18] MEDS ORDERED: Sodium Chloride 0.9% 1,000 ML IV STA (10:05)
[2018-07-18 10:23] LABS: BASO # 0.1 K/uL (0.0-0.2); BASO % 0.7 % (0.0-2.0); EOS % 0.6 % (0.0-4.0); HEMOGLOBIN 11.1 g/dL (12.0-16.0); LYMPH # 1.8 K/uL (1.0-4.3); LYMPH % 22.5 % (20.0-40.0); MEAN CELL VOLUME 88.6 fl (81.0-99.0); MEAN CORPUSCULAR HEMOGLOBIN 29.4 pg (27.0-31.0); MEAN CORPUSCULAR HGB CONC 33.2 g/dL (33.0-37.0); MEAN PLATELET VOLUME 9.5 fl (7.2-11.7); MONO # 0.5 K/uL (0.0-0.8); MONO % 5.6 % (0.0-10.0); NEUT # 5.8 K/uL (1.8-7.0); NEUT % 70.6 % (50.0-75.0); RBC 3.77 Mil/uL (3.80-5.20); RED CELL DISTRIBUTION WIDTH 14.7 % (11.5-14.5); WHITE BLOOD COUNT 8.2 K/uL (4.8-10.8)
--- NOTE | 2018-07-18 10:23 | ED PDOC ---
HPI: Abdomen Time Seen by Provider: 07/18/18 09:59 Chief Complaint (Nursing): Abdominal Pain Chief Complaint (Provider): Abdominal Pain History Per: Staple Side Laster (Lindy#[id number]) History/Exam Limitations: language barrier (filipino) Onset/Duration Of Symptoms: Days (x3) Current Symptoms Are (Timing): Still Present Location Of Pain/Discomfort: Epigastric Quality Of Discomfort: Sharp Associated Symptoms: Nausea, Vomiting, Loss Of Appetite, Back Pain. denies: Diarrhea Exacerbating Factors: Food Alleviating Factors: None Additional Complaint(s): 72yo female arrives in painful distress c/o upper abd pain, dizziness, vomiting and inability to keep fluids down for last 1-2 weeks, worse over last several days. Denies syncope, melena, hematemesis or chest pain. Seen in ED several weeks ago for similar symptoms states after discharge did not significantly improve. Notes noncompliance w all daily maintenance medications because of vomiting. Past Medical History Reviewed: Historical Data, Nursing Documentation, Vital Signs Vital Signs: Last Vital Signs Temp 98.0 F 07/18/18 09:13 Pulse 87 07/18/18 09:13 Resp 18 07/18/18 09:13 BP 239/131 H 07/18/18 09:13 Pulse Ox 100 07/18/18 09:13 - Medical History PMH: Diabetes, HTN, Hypercholesterolemia, Hyperlipidemia, Chronic Kidney Disease Denies: HIV, Kidney Stones - Surgical History Surgical History: No Surg Hx - Family History Family History: States: Unknown Family Hx - Living Arrangements Living Arrangements: With Family - Social History Current smoker - smoking cessation education provided: No - Immunization History Hx Tetanus Toxoid Vaccination: Yes Hx Influenza Vaccination: Yes Hx Pneumococcal Vaccination: Yes - Home Medications Home Medications: Ambulatory Orders Medication Instructions Recorded Dexlansoprazole [Dexilant] 30 mg PO DAILY 03/14/18 Ferrous Gluconate 324 mg PO BID 03/14/18 Gabapentin [Neurontin] 300 mg PO Q12 03/14/18 Insulin Glargine, Recombina 30 unit SC BID 03/14/18 [Lantus] Insulin Lispro [humALOG] 10 unit SC ACTID 03/14/18 Isosorbide Mononitrate ER [Imdur 30 mg PO DAILY 03/14/18 ER] Metoprolol Tartrate [Lopressor] 100 mg PO Q12 03/14/18 hydrALAZINE [Apresoline] 50 mg PO Q8 #90 tab 06/06/18 Allopurinol [Zyloprim] 100 mg PO DAILY 06/28/18 Febuxostat [Uloric] 40 mg PO DAILY 06/28/18 Pantoprazole Sodium [Protonix] 40 mg PO DAILY 7 Days ect 06/28/18 Budesonide/Formoterol Fumarate 1 puff .ROUTE DAILY 07/18/18 [Symbicort 160-4.5 Mcg Inhaler] Cholecalciferol [Vitamin D 1000 IU] 5,000 units PO DAILY 07/18/18 Clindamycin [Cleocin] 300 mg PO TID 07/18/18 - Allergies Allergies/Adverse Reactions: Allergies Allergy/AdvReac Type Severity Reaction Status Date / Time No Known Allergies Allergy Verified 05/30/18 08:12 Review of Systems ROS Statement: Except As Marked, All Systems Reviewed And Found Negative Constitutional: Positive for: Weakness. Negative for: Fever, Chills Cardiovascular: Negative for: Chest Pain Respiratory: Negative for: Cough, Shortness of Breath Gastrointestinal: Positive for: Nausea, Vomiting, Abdominal Pain (upper) Genitourinary Female: Negative for: Dysuria Musculoskeletal: Negative for: Neck Pain Skin: Negative for: Rash, Lesions, Jaundice Neurological: Positive for: Weakness, Headache, Dizziness. Negative for: Numbness, Incoordination Psych: Negative for: Suicidal ideation Physical Exam - Reviewed Nursing Documentation Reviewed: Yes Vital Signs Reviewed: Yes - Physical Exam Appears: Positive for: Uncomfortable Head Exam: Positive for: ATRAUMATIC, NORMAL INSPECTION, NORMOCEPHALIC Skin: Positive for: Normal Color, Warm, DRY Eye Exam: Positive for: EOMI, Normal appearance, PERRL ENT: Positive for: Normal ENT Inspection Neck: Positive for: Normal, Painless ROM Cardiovascular/Chest: Positive for: Regular Rate, Rhythm Respiratory: Positive for: CNT, Normal Breath Sounds Gastrointestinal/Abdominal: Positive for: Soft, Tenderness (upper abd ), Other (obese). Negative for: Distended, Rebound Back: Positive for: Normal Inspection Extremity: Positive for: Normal ROM Neurologic/Psych: Positive for: Alert, Oriented, Gait (not tested). Negative for: Motor/Sensory Deficits, Aphasia, Facial Droop - Laboratory Results Result Diagrams: 07/18/18 10:15 07/18/18 10:15 - ECG ECG: Positive for: Interpreted By Co ECG Rhythm: Positive for: Sinus Rhythm, Nonspecific Changes Rate: 86 O2 Sat by Pulse Oximetry: 100 (RA) Pulse Ox Interpretation: Normal - Radiology X-Ray: Read By Radiologist X-Ray Interpretation: No Acute Disease - Critical Care Total Time (In Min): 40 Medical Decision Making Medical Decision Making: Time: 958 Initial Plan: * CT ABD/pelvis * CT head * EKG * Labs * CXR * IV fluids * Pepcid 20mg IV * Zofran 4mg IV Time: 1001 --CXR interpreted by provider: (-) active disease. Time: 1108 --CT head FINDINGS: HEMORRHAGE: No intracranial hemorrhage. BRAIN: No mass effect or edema. Age related senescent changes. VENTRICLES: Unremarkable. No hydrocephalus. CALVARIUM: Unremarkable. PARANASAL SINUSES: Unremarkable as visualized. No significant inflammatory changes. MASTOID AIR CELLS: Unremarkable as visualized. No inflammatory changes. OTHER FINDINGS: None. IMPRESSION: No acute intracranial abnormalities. No significant findings to account for the clinical presentation. No significant interval change compared to the prior examination(s). Time: 1112 --CT ABD/pelvis FINDINGS: LOWER THORAX: Stable hiatal hernia. LIVER: Unremarkable. No gross lesion or ductal dilatation. GALLBLADDER AND BILE DUCTS: Unremarkable. PANCREAS: Unremarkable. No gross lesion or ductal dilatation. SPLEEN: Unremarkable. ADRENALS: No significant interval change compared to the prior examination(s). KIDNEYS AND URETERS: Stable nonobstructing upper pole calculi right kidney only.. No hydronephrosis. No solid mass. VASCULATURE: Atherosclerotic calcification and mural plaque present. Findings are seen throughout the aorta BOWEL: Diverticulosis without an acute inflammatory component or other associated pathologic process. APPENDIX: No abnormalities to suggest acute appendicitis. No right lower quadrant inflammatory processes identified. PERITONEUM: Unremarkable. No free fluid. No free air. LYMPH NODES: Unremarkable. No enlarged lymph nodes. BLADDER: Unremarkable. REPRODUCTIVE: No significant interval change compared to the prior examination(s). Is dominant findings calcified uterine fibroids. BONES: No acute fracture. Multilevel degenerative change. Grade 1 anterolisthesis L3- 4. OTHER FINDINGS: None. IMPRESSION: No acute findings related to/ accounting for the clinical presentation. Additional benign and/or incidental findings described above. No significant interval change compared to the prior examination(s). labs reviewed reveal stable anemia and renal insufficiency CT report from prior visit reviewed with possible intrinsic lesion esophagus/gastrum, given persistent vomiting, distress in ED will admit box order person medicine for GI workup. Required recurrent doses of antiemetics to control vomiting Required labetolol 10mg for accelerated HTN CT brain neg Admit Dr Horn box order person medicine - Scribe Attestation: Documented by Regine Escalona, acting as a scribe for Derrick Ko III, DO. Provider Scribe Attestation: All medical record entries made by the Scribe were at my direction and personally dictated by me. I have reviewed the chart and agree that the record accurately reflects my personal performance of the history, physical exam, medical decision making, and the department course for this patient. I have also personally directed, reviewed, and agree with the discharge instructions and disposition. Disposition - Clinical Impression Clinical Impression: Intractable vomiting, Hypertensive urgency, Renal insufficiency - Patient ED Disposition Is Patient to be Admitted: Yes - Disposition Disposition Time: 11:50 Condition: FAIR - Pt Status Changed To: Hospital Disposition Of: Observation
[2018-07-18 10:57] LABS: ALBUMIN 3.9 g/dL (3.5-5.0); CALCIUM 9.8 mg/dL (8.4-10.2)
--- NOTE | 2018-07-18 11:11 | CT ---
Date of service: 07/18/2018 PROCEDURE: CT HEAD WITHOUT CONTRAST. HISTORY: r/o ICH COMPARISON: 05/30/2018. CT head on TECHNIQUE: Axial computed tomography images were obtained through the head/brain without intravenous contrast. Supplemental Coronal and Sagittal projections created and reviewed. Radiation dose: Total exam DLP = 806.15 mGy-cm. This CT exam was performed using one or more of the following dose reduction techniques: Automated exposure control, adjustment of the mA and/or kV according to patient size, and/or use of iterative reconstruction technique. FINDINGS: HEMORRHAGE: No intracranial hemorrhage. BRAIN: No mass effect or edema. Age related senescent changes. VENTRICLES: Unremarkable. No hydrocephalus. CALVARIUM: Unremarkable. PARANASAL SINUSES: Unremarkable as visualized. No significant inflammatory changes. MASTOID AIR CELLS: Unremarkable as visualized. No inflammatory changes. OTHER FINDINGS: None. IMPRESSION: No acute intracranial abnormalities. No significant findings to account for the clinical presentation. No significant interval change compared to the prior examination(s).
--- NOTE | 2018-07-18 11:16 | CT ---
Date of service: 07/18/2018 PROCEDURE: CT Abdomen and Pelvis without intravenous contrast HISTORY: upper abd pain dizziness COMPARISON: 06/28/2018 CT abdomen and pelvis. TECHNIQUE: Unenhanced. Neither IV nor oral contrast administered Radiation dose: Total exam DLP = 947.62 mGy-cm. This CT exam was performed using one or more of the following dose reduction techniques: Automated exposure control, adjustment of the mA and/or kV according to patient size, and/or use of iterative reconstruction technique. FINDINGS: LOWER THORAX: Stable hiatal hernia. LIVER: Unremarkable. No gross lesion or ductal dilatation. GALLBLADDER AND BILE DUCTS: Unremarkable. PANCREAS: Unremarkable. No gross lesion or ductal dilatation. SPLEEN: Unremarkable. ADRENALS: No significant interval change compared to the prior examination(s). KIDNEYS AND URETERS: Stable nonobstructing upper pole calculi right kidney only.. No hydronephrosis. No solid mass. VASCULATURE: Atherosclerotic calcification and mural plaque present. Findings are seen throughout the aorta BOWEL: Diverticulosis without an acute inflammatory component or other associated pathologic process. APPENDIX: No abnormalities to suggest acute appendicitis. No right lower quadrant inflammatory processes identified. PERITONEUM: Unremarkable. No free fluid. No free air. LYMPH NODES: Unremarkable. No enlarged lymph nodes. BLADDER: Unremarkable. REPRODUCTIVE: No significant interval change compared to the prior examination(s). Is dominant findings calcified uterine fibroids. BONES: No acute fracture. Multilevel degenerative change. Grade 1 anterolisthesis L3-4. OTHER FINDINGS: None. IMPRESSION: No acute findings related to/ accounting for the clinical presentation. Additional benign and/or incidental findings described above. No significant interval change compared to the prior examination(s).
--- NOTE | 2018-07-18 11:27 | RAD ---
Date of service: 07/18/2018 HISTORY: SOB COMPARISON: 06/28/2018 FINDINGS: LUNGS: No active pulmonary disease. PLEURA: No significant pleural effusion identified, no pneumothorax apparent. CARDIOVASCULAR: Atherosclerotic calcifications identified primarily aortic arch. Normal. OSSEOUS STRUCTURES: No significant abnormalities. VISUALIZED UPPER ABDOMEN: Normal. OTHER FINDINGS: None. IMPRESSION: No active disease. No significant interval change compared to the prior examination(s).
[2018-07-18] MEDS ORDERED: Labetalol 5mg/ml (4ml) IVP STA (11:58)
[2018-07-18] MEDS ORDERED: Labetalol 5mg/ml (4ml) ONE (12:09)
[2018-07-18] MEDS ORDERED: Dextrose 50% SYRINGE Inj (50 ml) IV PRN (18:30)
[2018-07-18] MEDS ORDERED: Glucagon Recombinant 1 mg Inj IM PRN (18:30)
--- NOTE | 2018-07-18 19:53 | CARD ---
APPROVED REPORT Date of service: 07/18/2018 EKG Measurement Heart [id number] <Conclusion> Normal sinus rhythm Minimal voltage criteria for LVH, may be normal variant Borderline ECG
[2018-07-18] MEDS: Insulin Detemir 100 Units/ml Inj SC SCH (21:55)
[2018-07-18] MEDS: Insulin Lispro (humaLOG) 100 Units/ml Inj SC SCH (22:27)
[2018-07-19] MEDS: Insulin Lispro (humaLOG) 100 Units/ml Inj SC SCH ×7 (07:02→21:24)
[2018-07-19] MEDS: Cholecalciferol 1,000 INTLU TAB PO SCH (09:20)
[2018-07-19] MEDS: Fluticasone-Salmeterol 250-50mcg Diskus INH SCH ×2 (09:25→21:17)
[2018-07-19] MEDS: Sucralfate 1 gm/10 ml Oral Susp UD PO SCH ×3 (09:28→17:12)
--- NOTE | 2018-07-19 13:40 | US ---
Date of service: 07/19/2018 PROCEDURE: Ultrasound of the Kidneys with Dopplers HISTORY: elevated creatinine, abdominal pain COMPARISON: Renal artery ultrasound 06/05/2018. TECHNIQUE: Sonogram of the kidneys. FINDINGS: Renal artery peak systolic velocity 80.1 centimeter/second. RIGHT KIDNEY: Measures: 12.2 cm. Normal in size, contour but with increased cortical echogenicity. No stone, solid mass lesion or hydronephrosis visualized. Right renal artery measures 56.4, 30.5 in 25.1 centimeter/second at proximal mid and distal renal artery segments respectively. Normal renal artery aortic ratio of less than 1 is identified in each segment. LEFT KIDNEY: Measures: 12.3 cm. Normal in size, contour but with increased cortical echogenicity. No stone, solid mass lesion or hydronephrosis visualized. Left renal artery measures 72.6, 18.3 and 23.6 centimeter/second in respective proximal mid and distal segments rendering renal artery ratios of less than 1 at the left renal artery as well. OTHER FINDINGS: None. IMPRESSION: Likely intrinsic medical disease given increased cortical echogenicity once again. No spectral analysis that would suggest renal artery stenosis in either renal artery once again.
--- NOTE | 2018-07-19 14:59 | CARD ---
APPROVED REPORT Date of service: 07/19/2018 EXAM: Two-dimensional and M-mode echocardiogram with Doppler and color Doppler. Other Information Quality : GoodRhythm : NSR INDICATION Hypertension/HCVD 2D DIMENSIONS IVSd1.35 (0.7-1.1cm)LVDd3.64 (3.9-5.9cm) LVOT Diameter2.02 (1.8-2.4cm)PWd1.82 (0.7-1.1cm) IVSs1.64 (0.8-1.2cm)LA Zdzkgc12 (18-58mL) LVDs2.68 (2.5-4.0cm)FS (%) 26.4 % PWs1.91 (0.8-1.2cm) M-Mode DIMENSIONS Left Atrium (MM)4.11 (2.5-4.0cm)Aortic Root3.02 (2.2-3.7cm) Aortic Valve AoV Peak Pjlcgvtl210.8cm/sAoV VTI34.1cmAO Peak GR.14mmHg LVOT Peak Nkoqvybe895.5cm/sLVOT VTI29.64cmAO Mean GR.8mmHg MICHAEL (VMAX)1.12oy7IFC (VTI)1.31cm2 Mitral Valve MV E Insvbnsd290.7cm/sMV DECEL GRRH432jwKB A Mvinubth870.4cm/s MV JOA49dlT/A ratio0.8MVA (PHT)3.19cm2 TDI Lateral E' Peak V4.16cm/sMedial E' Peak V4.81cm/sE/Lateral E'30.9 E/Medial E'26.8 Pulmonary Valve PV Peak Xvewagfs47.7cm/s Tricuspid Valve TR Peak Rkrqhazy522xm/sTR Peak Gr.12pxTkFMAG34iqXi LEFT VENTRICLE The left ventricle is normal size. There is mild concentric left ventricular hypertrophy. The left ventricular systolic function is normal. The estimated ejection fraction is 60-65% No regional wall motion abnormalities noted.. Transmitral Doppler flow pattern is Grade I-abnormal relaxation pattern. No left ventricle thrombus noted on this study. There is no ventricular septal defect visualized. There is no left ventricular aneurysm. There is no mass noted in the left ventricle. RIGHT VENTRICLE The right ventricle is normal size. There is normal right ventricular wall thickness. The right ventricular systolic function is normal. ATRIA The left atrium size is normal. The right atrium size is normal. The interatrial septum is intact with no evidence for an atrial septal defect. AORTIC VALVE The aortic valve is normal in structure. No aortic regurgitation is present. There is no aortic valvular stenosis. There is no aortic valvular vegetation. MITRAL VALVE The mitral valve is normal in structure. There is no evidence of mitral valve prolapse. There is no mitral valve stenosis. There is no mitral valve regurgitation noted. TRICUSPID VALVE The tricuspid valve is normal in structure. There is trace tricuspid valve regurgitation noted. RVSP is calculated at 42 mm Hg. There is no tricuspid valve prolapse or vegetation. There is no tricuspid valve stenosis. PULMONIC VALVE The pulmonary valve is normal in structure. There is no pulmonic valvular regurgitation. There is no pulmonic valvular stenosis. GREAT VESSELS The aortic root is normal in size. The ascending aorta is normal in size. The pulmonary artery is normal. The IVC is normal in size and collapses >50% with inspiration. PERICARDIAL EFFUSION There is no pericardial effusion. There is no pleural effusion. <Conclusion> There is mild concentric left ventricular hypertrophy. The estimated ejection fraction is 60-65% Transmitral Doppler flow pattern is Grade I-abnormal relaxation pattern. The left atrium size is normal. There is trace tricuspid valve regurgitation noted. RVSP is calculated at 42 mm Hg.
[2018-07-19] MEDS: Insulin Detemir 100 Units/ml Inj SC SCH (21:25)
[2018-07-20] MEDS: Insulin Lispro (humaLOG) 100 Units/ml Inj SC SCH ×7 (08:23→21:20)
[2018-07-20] MEDS: Cholecalciferol 1,000 INTLU TAB PO SCH (08:29)
[2018-07-20] MEDS: Fluticasone-Salmeterol 250-50mcg Diskus INH SCH ×2 (08:36→21:20)
[2018-07-20] MEDS: Sucralfate 1 gm/10 ml Oral Susp UD PO SCH ×3 (08:39→17:29)
[2018-07-20] MEDS: Insulin Detemir 100 Units/ml Inj SC SCH (21:19)
--- NOTE | 2018-07-21 06:48 | CP.PCM.HP ---
History of Present Illness - History of Present Illness History of Present Illness: Germania gómez a 72 y/o female admitted for intractable vomiting and accelerated HTN, Claims that for the past 24 hrs she started having episodes of vomiting epigastric pain but no diarrhea or fever. Pain was so severe that she sought Er eval where she was noted to be in accelerated HTn with systolic BP around 200. She denies any chest pain or SOB Has a hx of gastritis HTn Hyperlipidemia CKD .DM 2 Present on Admission - Present on Admission Any Indicators Present on Admission: No History of DVT/PE: No History of Uncontrolled Diabetes: No Urinary Catheter: No Decubitus Ulcer Present: No Past Patient History - Infectious Disease Hx of Infectious Diseases: None - Past Medical History & Family History Past Medical History?: Yes - Past Social History Smoking Status: Never Smoked - CARDIAC Hx Cardiac Disorders: Yes Hx Hypercholesterolemia: Yes Hx Hypertension: Yes - PULMONARY Hx Respiratory Disorders: No - NEUROLOGICAL Hx Neurological Disorder: No - HEENT Hx HEENT Problems: No - RENAL Hx Chronic Kidney Disease: Yes Hx Kidney Stones: No - ENDOCRINE/METABOLIC Hx Endocrine Disorders: Yes Hx Diabetes Mellitus Type 2: Yes - HEMATOLOGICAL/ONCOLOGICAL Hx Blood Disorders: No Hx Human Immunodeficiency Virus (HIV): No - INTEGUMENTARY Hx Dermatological Problems: Yes Other/Comment: Dermatitis - MUSCULOSKELETAL/RHEUMATOLOGICAL Hx Musculoskeletal Disorders: Yes Hx Falls: No - GASTROINTESTINAL Hx Gastrointestinal Disorders: No - GENITOURINARY/GYNECOLOGICAL Hx Genitourinary Disorders: No - PSYCHIATRIC Hx Psychophysiologic Disorder: No Hx Substance Use: No - SURGICAL HISTORY Hx Surgeries: Yes Other/Comment: left leg sx - ANESTHESIA Hx Anesthesia: Yes Hx Anesthesia Reactions: No Hx Malignant Hyperthermia: No Has any member of the family had a problem w/ anesthesia?: No Meds Allergies/Adverse Reactions: Allergies Allergy/AdvReac Type Severity Reaction Status Date / Time No Known Allergies Allergy Verified 05/30/18 08:12 Physical Exam - Head Exam Head Exam: NORMAL INSPECTION - Eye Exam Eye Exam: Normal appearance - ENT Exam ENT Exam: Mucous Membranes Moist - Respiratory Exam Respiratory Exam: Clear to Auscultation Bilateral - Cardiovascular Exam Cardiovascular Exam: REGULAR RHYTHM - GI/Abdominal Exam GI & Abdominal Exam: Normal Bowel Sounds, Tenderness Results - Vital Signs Recent Vital Signs: Last Vital Signs Temp 98.2 F 07/21/18 01:00 Pulse 86 07/21/18 01:15 Resp 18 07/21/18 01:00 BP 148/71 12/17/18 01:15 Pulse Ox 96 07/21/18 01:00 - Labs Result Diagrams: 07/18/18 10:15 07/18/18 10:15 Labs: Laboratory Results - last 24 hr 07/20/18 07/20/18 07/20/18 11:23 16:54 21:10 POC Glucose (mg/dL) 201 H 149 H 179 H 07/21/18 05:08 POC Glucose (mg/dL) 125 H Assessment & Plan (1) Gastritis Status: Acute (2) Hypertensive urgency Status: Acute (3) Intractable vomiting Status: Acute (4) Acute on chronic kidney failure Status: Acute (5) Diabetes mellitus type 2 in obese Status: Chronic Priority: Medium - Assessment and Plan (Free Text) Plan: Add hydralazine cont monitor BP antacis amlodipine check labs repeat cbc cmp
--- NOTE | 2018-07-21 06:57 | CP.PCM.PN ---
Subjective - Date & Time of Evaluation Date of Evaluation: 07/20/18 Time of Evaluation: 17:00 - Subjective Subjective: Patient feels a lot better. Still with episodes of elevated BP. Has no chest pain or SOB. Afebrile. Objective - Vital Signs/Intake and Output Vital Signs (last 24 hours): Temp Pulse Resp BP Pulse Ox 98.2 F 86 18 148/71 96 07/21/18 01:00 07/21/18 01:15 07/21/18 01:00 07/21/18 01:15 07/21/18 01:00 - Medications Medications: Current Medications Allopurinol (Zyloprim) 100 mg PO DAILY [facility] Last Admin: 07/20/18 08:29 Dose: 100 mg Amlodipine Besylate (Norvasc) 10 mg PO [facility] Last Admin: 07/20/18 21:21 Dose: 10 mg Cholecalciferol (Vitamin D) 1,000 intlu PO DAILY [facility] Last Admin: 07/20/18 08:29 Dose: 1,000 intlu Dextrose (Dextrose 50% Inj) 0 ml IV STAT PRN; Protocol PRN Reason: Hypoglycemia Protocol Dextrose (Glutose 15) 0 gm PO ONCE PRN; Protocol PRN Reason: Hypoglycemia Protocol Ferrous Gluconate (Fergon) 324 mg PO BID [facility] Last Admin: 07/20/18 17:28 Dose: 324 mg Gabapentin (Neurontin) 300 mg PO Q12 [facility] Last Admin: 07/20/18 21:21 Dose: 300 mg Glucagon (Glucagen Diagnostic Kit) 0 mg IM STAT PRN; Protocol PRN Reason: Hypoglycemia Protocol Hydralazine HCl (Apresoline) 10 mg PO TID [facility] Insulin Detemir (Levemir) 40 units SC HS [facility] Last Admin: 07/20/18 21:19 Dose: 40 units Insulin Human Lispro (Humalog) 10 units SC ACTID [facility] Last Admin: 07/20/18 17:25 Dose: Not Given Insulin Human Lispro (Humalog) 0 units SC [facility]; Protocol Last Admin: 07/20/18 21:20 Dose: Not Given Isosorbide Mononitrate (Imdur Er) 30 mg PO DAILY [facility] Last Admin: 07/20/18 08:28 Dose: 30 mg Metoprolol Tartrate (Lopressor) 100 mg PO Q12 [facility] Last Admin: 07/20/18 21:21 Dose: 100 mg Ondansetron HCl (Zofran Inj) 4 mg IVP Q6 PRN PRN Reason: Nausea/Vomiting Last Admin: 07/19/18 03:35 Dose: 4 mg Pantoprazole Sodium (Protonix Inj) 40 mg IVP DAILY [facility] Last Admin: 07/20/18 08:29 Dose: 40 mg Fluticasone/Salmeterol (Advair Diskus 250/50) 1 puff INH Q12 [facility] Last Admin: 07/20/18 21:20 Dose: 1 puff Sucralfate (Carafate Oral Susp) 1 gm PO TID [facility] Last Admin: 07/20/18 17:29 Dose: 1 gm - Labs Labs: 07/18/18 10:15 07/18/18 10:15 - Head Exam Head Exam: NORMAL INSPECTION - Eye Exam Eye Exam: Normal appearance - ENT Exam ENT Exam: Mucous Membranes Moist - Respiratory Exam Respiratory Exam: Clear to Ausculation Bilateral - Cardiovascular Exam Cardiovascular Exam: REGULAR RHYTHM - GI/Abdominal Exam GI & Abdominal Exam: Normal Bowel Sounds - Neurological Exam Neurological Exam: Alert, Oriented x3 Assessment and Plan (1) Gastritis Status: Acute (2) Hypertensive urgency Status: Acute (3) Intractable vomiting Status: Acute (4) Acute on chronic kidney failure Status: Acute (5) Diabetes mellitus type 2 in obese Status: Chronic - Assessment and Plan (Free Text) Plan: Cont meds Cont Panto[prazole rcheck BP adjust meds
[2018-07-21 06:59] VITALS: O2SAT 97
[2018-07-21 07:28] LABS: BASO % 0.5 % (0.0-2.0); EOS # 0.4 K/uL (0.0-0.7); EOS % 4.5 % (0.0-4.0); HEMOGLOBIN 9.3 g/dL (12.0-16.0); LYMPH # 2.4 K/uL (1.0-4.3); LYMPH % 29.4 % (20.0-40.0); MEAN CELL VOLUME 90.2 fl (81.0-99.0); MEAN CORPUSCULAR HEMOGLOBIN 29.6 pg (27.0-31.0); MEAN CORPUSCULAR HGB CONC 32.9 g/dL (33.0-37.0); MONO # 0.8 K/uL (0.0-0.8); MONO % 9.4 % (0.0-10.0); NEUT # 4.6 K/uL (1.8-7.0); NEUT % 56.2 % (50.0-75.0); RBC 3.12 Mil/uL (3.80-5.20); RED CELL DISTRIBUTION WIDTH 15.1 % (11.5-14.5); WHITE BLOOD COUNT 8.1 K/uL (4.8-10.8)
[2018-07-21 07:39] LABS: ALB/GLOB RATIO 0.9 (1.0-2.1); ALBUMIN 2.9 g/dL (3.5-5.0); CALCIUM 8.9 mg/dL (8.4-10.2)
[2018-07-21 08:14] VITALS: RESP 20
[2018-07-21] MEDS: Insulin Lispro (humaLOG) 100 Units/ml Inj SC SCH ×2 (08:45)
[2018-07-21] MEDS: Fluticasone-Salmeterol 250-50mcg Diskus INH SCH (09:27)
[2018-07-21] MEDS: Cholecalciferol 1,000 INTLU TAB PO SCH (09:35)
[2018-07-21] MEDS: Sucralfate 1 gm/10 ml Oral Susp UD PO SCH (09:40)
[2018-07-21] MEDS ORDERED: Sod Polystyrene Sulf 15 gm/60 ml Susp PO ONE (09:45)
[2018-07-21 11:49] VITALS: BP 138/72; PULSE 93; TEMP 97.7
--- NOTE | 2018-08-06 10:07 | PQF ---
PROVIDER RESPONSE TEXT: Provider was unable to determine a response for this query. REVIEWER QUERY TEXT: Symptom Underlying Cause Persistent vomiting is documented in the ED Physician Documentation Report. Please document the under lying diagnosis causing the patient?s documented symptomof vomiting or whether those are insignifican t or unable to be further specified. The patient's Clinical Indicators include: xx Query created by: Leidy Ramirez on 07/22/2018 9:47 AM Electronically signed by: Arnulfo Beaver 08/06/2018 10:02 AM
== END 2018-07-21 12:40 | disposition home or self-care (01) | DRG 305 ==
LOC: H.ER 09:08 → H.ERHOLD 12:37 → H.TEL 18:05
PROVIDERS: ADMIT Family Medicine; ATTEND Family Medicine
DX: I16.0 Hypertensive urgency (principal); N17.9 Acute kidney failure, unspecified; I12.9 Hypertensive chronic kidney disease with stage 1 through stage 4 chronic kidney disease, or unspecified chronic kidney disease; N18.9 Chronic kidney disease, unspecified; E11.22 Type 2 diabetes mellitus with diabetic chronic kidney disease; K29.70 Gastritis, unspecified, without bleeding; E66.9 Obesity, unspecified; Z68.36 Body mass index [BMI] 36.0-36.9, adult; Z91.14 Patient's other noncompliance with medication regimen; E78.00 Pure hypercholesterolemia, unspecified; E78.5 Hyperlipidemia, unspecified; Z79.51 Long term (current) use of inhaled steroids; Z79.4 Long term (current) use of insulin; D64.9 Anemia, unspecified; R11.10 Vomiting, unspecified

== ENCOUNTER 2018-07-29 11:04 | Inpatient (IN) | payer MEDICARE, MEDICAID ==
[2018-07-29 11:05] VITALS: BMI 36.9
[2018-07-29] MEDS ORDERED: Morphine 4 MG/ML VIAL IVP ONE ×2 (12:28→16:06)
[2018-07-29] MEDS: Sodium Chloride 0.9% 1,000 ML IV SCH ×9 (12:38→23:38)
[2018-07-29 12:55] LABS: BASO % 0.3 % (0.0-2.0); EOS % 0.2 % (0.0-4.0); HEMOGLOBIN 11.2 g/dL (12.0-16.0); LYMPH # 2.2 K/uL (1.0-4.3); LYMPH % 19.2 % (20.0-40.0); MEAN CELL VOLUME 88.8 fl (81.0-99.0); MEAN CORPUSCULAR HEMOGLOBIN 28.9 pg (27.0-31.0); MEAN CORPUSCULAR HGB CONC 32.5 g/dL (33.0-37.0); MEAN PLATELET VOLUME 10.1 fl (7.2-11.7); MONO # 0.7 K/uL (0.0-0.8); MONO % 6.2 % (0.0-10.0); NEUT # 8.6 K/uL (1.8-7.0); NEUT % 74.1 % (50.0-75.0); RBC 3.87 Mil/uL (3.80-5.20); RED CELL DISTRIBUTION WIDTH 14.5 % (11.5-14.5); WHITE BLOOD COUNT 11.6 K/uL (4.8-10.8)
[2018-07-29 13:14] LABS: ALBUMIN 3.7 g/dL (3.5-5.0); CALCIUM 9.6 mg/dL (8.4-10.2)
[2018-07-29 13:18] LABS: TROPONIN I 0.025 ng/mL (0.00-0.120)
--- NOTE | 2018-07-29 15:27 | RAD ---
Date of service: 07/29/2018 HISTORY: r/o pna COMPARISON: 07/18/2018 TECHNIQUE: Chest PA and lateral FINDINGS: LUNGS: No active pulmonary disease. PLEURA: No significant pleural effusion identified. No pneumothorax apparent. CARDIOVASCULAR: No aortic atherosclerotic calcification present. Normal cardiac size. No pulmonary vascular congestion. OSSEOUS STRUCTURES: No significant abnormalities. VISUALIZED UPPER ABDOMEN: Normal. OTHER FINDINGS: None. IMPRESSION: No active disease.
[2018-07-29] MEDS ORDERED: Iohexol 240 (50 ml) PO ONE (15:56)
[2018-07-29] MEDS ORDERED: Iohexol 240 (50 ml) ONE (16:21)
[2018-07-29] MEDS ORDERED: Morphine 4 MG/ML VIAL ONE (16:21)
[2018-07-29 17:49] LABS: SQUAMOUS EPITHIAL 1 /hpf (0-5); URINE BILIRUBIN NEGATIVE (NEGATIVE); URINE BLOOD NEGATIVE (NEGATIVE); URINE CLARITY CLEAR (Clear); URINE COLOR YELLOW (YELLOW); URINE GLUCOSE (UA) 50 mg/dL (NEGATIVE); URINE LEUKOCYTE ESTERASE NEG Leu/uL (Negative); URINE PROTEIN >=500 mg/dL (NEGATIVE); URINE UROBILINOGEN 0.2-1.0 mg/dL (0.2-1.0)
--- NOTE | 2018-07-29 18:30 | ED PDOC ---
HPI: Abdomen Time Seen by Provider: 07/29/18 11:48 Chief Complaint (Nursing): Abdominal Pain Chief Complaint (Provider): abdominal pain/colic History Per: Patient, Family History/Exam Limitations: no limitations Onset/Duration Of Symptoms: Days (two) Current Symptoms Are (Timing): Still Present Location Of Pain/Discomfort: Diffuse Quality Of Discomfort: Unable To Describe, Pressure, "Pain" Associated Symptoms: Nausea, Vomiting. denies: Constipation Exacerbating Factors: None Additional Complaint(s): Pt presents to the ED with complaints of consisent abdominal pain and nausea with limited vomitus; there is no diarhhea; pt also has hypertension and attempts to contril this with metoprolol and amlodiine. The pt family indicates that her abdominal pain is something that happens often without definitive resolution. there is no fever or other symptoms Past Medical History Reviewed: Historical Data, Nursing Documentation, Vital Signs Vital Signs: Last Vital Signs Temp 98 F 07/29/18 17:40 Pulse 90 07/29/18 17:40 Resp 20 07/29/18 17:40 BP 166/89 H 07/29/18 17:40 Pulse Ox 97 07/29/18 17:40 - Medical History PMH: Diabetes, HTN, Hypercholesterolemia, Hyperlipidemia, Chronic Kidney Disease Denies: HIV, Kidney Stones - Family History Family History: States: Unknown Family Hx - Immunization History Hx Tetanus Toxoid Vaccination: Yes Hx Influenza Vaccination: Yes Hx Pneumococcal Vaccination: Yes - Home Medications Home Medications: Ambulatory Orders Medication Instructions Recorded Dexlansoprazole [Dexilant] 30 mg PO DAILY 03/14/18 Ferrous Gluconate 324 mg PO BID 03/14/18 Gabapentin [Neurontin] 300 mg PO Q12 03/14/18 Insulin Glargine, Recombina 30 unit SC BID 03/14/18 [Lantus] Insulin Lispro [humALOG] 10 unit SC ACTID 03/14/18 Isosorbide Mononitrate ER [Imdur 30 mg PO DAILY 03/14/18 ER] Metoprolol Tartrate [Lopressor] 100 mg PO Q12 03/14/18 hydrALAZINE [Apresoline] 50 mg PO Q8 #90 tab 06/06/18 Allopurinol [Zyloprim] 100 mg PO DAILY 06/28/18 Febuxostat [Uloric] 40 mg PO DAILY 06/28/18 Pantoprazole Sodium [Protonix] 40 mg PO DAILY 7 Days ect 06/28/18 Budesonide/Formoterol Fumarate 1 puff .ROUTE DAILY 07/18/18 [Symbicort 160-4.5 Mcg Inhaler] Cholecalciferol [Vitamin D 1000 IU] 5,000 units PO DAILY 07/18/18 Clindamycin [Cleocin] 300 mg PO TID 07/18/18 Pantoprazole [Protonix] 40 mg PO DAILY #30 ect 07/21/18 amLODIPine [Norvasc] 10 mg PO HS #30 tab 07/21/18 - Allergies Allergies/Adverse Reactions: Allergies Allergy/AdvReac Type Severity Reaction Status Date / Time No Known Allergies Allergy Verified 05/30/18 08:12 Review of Systems ROS Statement: Except As Marked, All Systems Reviewed And Found Negative Gastrointestinal: Positive for: Nausea, Vomiting, Abdominal Pain Physical Exam - Reviewed Nursing Documentation Reviewed: Yes Vital Signs Reviewed: Yes - Physical Exam Appears: Positive for: Non-toxic, Uncomfortable Head Exam: Positive for: ATRAUMATIC, NORMAL INSPECTION Skin: Positive for: Normal Color, Warm, Dry. Negative for: Diaphoresis, Pallor, Rash Eye Exam: Positive for: Normal appearance, EOMI, PERRL. Negative for: Nystagmus , Periorbital swelling, Periorbital tenderness ENT: Positive for: Normal ENT Inspection Neck: Positive for: Normal, Painless ROM, Supple. Negative for: Decreased ROM Cardiovascular/Chest: Positive for: Regular Rate, Rhythm Respiratory: Positive for: Normal Breath Sounds Pulses-Carotid (L): 2+ Pulses-Carotid (R): 2+ Pulses-Radial (L): 2+ Pulses-Radial (R): 2+ Gastrointestinal/Abdominal: Positive for: Bowel Sounds (active in all four quadrants), Soft. Negative for: Tenderness, Distended, Guarding, Rebound, Asicites Back: Positive for: Normal Inspection. Negative for: L CVA Tenderness, R CVA Tenderness - Laboratory Results Result Diagrams: 07/29/18 12:44 07/29/18 12:44 - ECG O2 Sat by Pulse Oximetry: 97 Disposition - Clinical Impression Clinical Impression: Abdominal discomfort - Disposition Disposition Time: 20:05 Condition: STABLE Forms: HYGIEIA (N[place]ien)
[2018-07-29] MEDS ORDERED: Labetalol 5mg/ml (4ml) IVP STA (20:04)
--- NOTE | 2018-07-29 20:07 | ED PDOC ---
- Laboratory Results Result Diagrams: 07/29/18 12:44 07/29/18 12:44 - ECG O2 Sat by Pulse Oximetry: 97 Medical Decision Making Medical Decision Making: Pt endorsed to me by SHARA Maurice pending abdominal CT results and BP control. FINDINGS: LUNG BASES: The lung bases appear clear. No pleural effusions are seen. LIVER: Unremarkable. GALLBLADDER AND BILE DUCTS: The gallbladder appears distended. No radioopaque gallstones are seen. No biliary ductal dilatation is evident. PANCREAS: Unremarkable. SPLEEN: Unremarkable. ADRENAL GLANDS: Unremarkable. KIDNEYS, URETERS, AND BLADDER: The kidneys appear within normal limits. There is no hydronephrosis or hydroureter. Tiny nonobstructing calculus midportion right kidney. Enlarged uterus with large irregularly calcified fibroids present. STOMACH AND BOWEL: Unremarkable appearance of the stomach and bowel. No evidence of bowel obstruction. No evidence suggesting enteritis or colitis. A small periumbilical hernia containing fat. A small hiatal hernia. APPENDIX: No evidence of acute appendicitis on CT examination. PERITONEUM: No free fluid. No free air. LYMPH NODES: No lymphadenopathy is evident. VASCULATURE: No evidence of abdominal aortic aneurysm. BONES: No aggressive appearing osseous lesion. No acute osseous pathology evident. IMPRESSION: Small hiatal hernia. Distended gallbladder. Tiny nonobstructing calculus right kidney. Small periumbilical hernia containing fat. Enlarged uterus with multiple irregularly calcified fibroids. Clinical correlation advised. Electronically signed on Jul 29, 2018 7:22:04 PM EST by: Chandu De Paz M.D., Certified by [facility], Diagnostic Radiology 21:30: re-evaluated, continues to c/o abd pain and nausea, given Reglan and Benadryl. Admitted to Dr. Tapia for intractable N/V. Disposition Discussed With : Louann Tapia Counseled Patient/Family Regarding: Studies Performed, Diagnosis, Need For Followup - Clinical Impression Clinical Impression: Abdominal discomfort - POA Present On Arrival: None - Disposition Disposition: Transfer of Care Disposition Time: 22:00 Condition: FAIR
[2018-07-29] MEDS ORDERED: Labetalol 5mg/ml (4ml) ONE (20:14)
[2018-07-29] MEDS ORDERED: DiphenhydrAMINE 50 mg/ml Inj IVP STA (22:00)
[2018-07-29] MEDS ORDERED: DiphenhydrAMINE 50 mg/ml Inj ONE (22:06)
[2018-07-30] MEDS: Sodium Chloride 0.9% 1,000 ML IV SCH ×11 (00:42→10:58)
[2018-07-30] MEDS ORDERED: DEXLANSOPRAZOLE 30 MG PO SCH (09:00)
[2018-07-30] MEDS: Pantoprazole 40 mg EC Tab PO SCH ×2 (09:00→17:01)
[2018-07-30] MEDS: Cholecalciferol 1,000 INTLU TAB PO SCH (09:01)
--- NOTE | 2018-07-30 10:41 | CT ---
Date of service: 07/29/2018 PROCEDURE: CT Abdomen and Pelvis with contrast HISTORY: Abdominal pain COMPARISON: 07/18/2018. TECHNIQUE: CT scan of the abdomen and pelvis was performed after administration of intravenous contrast. Oral contrast was administered. Coronal and sagittal reformatted images were obtained. Radiation dose: Total exam DLP = 931.48 mGy-cm. This CT exam was performed using one or more of the following dose reduction techniques: Automated exposure control, adjustment of the mA and/or kV according to patient size, and/or use of iterative reconstruction technique. FINDINGS: LOWER THORAX: The visualized lungs are clear. LIVER: Normal in size. No gross lesion or ductal dilatation. GALLBLADDER AND BILE DUCTS: Well distended. No calcified gallstones, wall thickening or pericholecystic fluid. PANCREAS: Normal in size. No gross lesion or ductal dilatation. SPLEEN: Normal in size. ADRENALS: No discrete nodule. KIDNEYS AND URETERS: Normal in size. There is a 2 mm nonobstructing stone in the upper pole of the right kidney and mild fullness in the right collecting system. There are punctate nonobstructing stones in both kidneys. VASCULATURE: No aortic aneurysm. BOWEL: The small bowel loops are normal in caliber. Sigmoid diverticulosis without CT evidence for acute diverticulitis. No bowel wall thickening or obstruction. APPENDIX: Normal appendix. PERITONEUM: No free fluid. No free air. LYMPH NODES: No enlarged lymph nodes. BLADDER: Well distended and normal in appearance. The REPRODUCTIVE: Multiple calcified fibroids, the largest on the right measures 5.3 x 6.2 cm. BONES: No acute fracture. Multilevel degenerative changes in the spine, worse at L3-4 G grade 1 anterior listhesis of L3 on L4. OTHER FINDINGS: There is a small sliding hiatal hernia. Small fat containing umbilical hernia. IMPRESSION: No acute abdominal or pelvic abnormalit the y. Punctate nonobstructing stones in both kidneys. 2 mm nonobstructing stone in the upper pole of the right kidney and mild fullness in the right collecting system. No obstructive uropathy. Small sliding hiatal hernia. A preliminary report was provided by [employer]..
[2018-07-30 10:58] LABS: BASO % 0.4 % (0.0-2.0); EOS # 0.1 K/uL (0.0-0.7); HEMOGLOBIN 10.7 g/dL (12.0-16.0); LYMPH # 1.6 K/uL (1.0-4.3); LYMPH % 16.2 % (20.0-40.0); MEAN CELL VOLUME 91.6 fl (81.0-99.0); MEAN CORPUSCULAR HEMOGLOBIN 29.3 pg (27.0-31.0); MEAN PLATELET VOLUME 9.2 fl (7.2-11.7); MONO # 0.7 K/uL (0.0-0.8); MONO % 6.6 % (0.0-10.0); NEUT # 7.5 K/uL (1.8-7.0); NEUT % 75.8 % (50.0-75.0); NRBC % 0.1 % (0.0-0.0); RBC 3.64 Mil/uL (3.80-5.20); RED CELL DISTRIBUTION WIDTH 14.6 % (11.5-14.5); WHITE BLOOD COUNT 9.9 K/uL (4.8-10.8)
[2018-07-30 11:19] LABS: ALB/GLOB RATIO 0.9 (1.0-2.1); ALBUMIN 3.3 g/dL (3.5-5.0); CALCIUM 8.8 mg/dL (8.4-10.2)
[2018-07-30] MEDS ORDERED: Sod Polystyrene Sulf 15 gm/60 ml Susp PO ONE (12:24)
--- NOTE | 2018-07-30 16:55 | CP.PCM.CON ---
History of Present Illness - History of Present Illness History of Present Illness: REASONS FOR CONSULT : CKD STAGE 4 WITH eGFR AROUND 18 ML / M ANEMIA OF CKD .. H/H STABLE ELECTROLYTES ABN .. NOW OK UTI ON HER LAST ADMISSION .. UA IS NOW CLEAR ALL EMR REVIEWED .. LABS REVIEWED THOROUGHLY .. PT WAS SEEN AND EXAMINED .. CASE D/W DR OSBORNE Time Seen by Provider: 07/29/18 11:48 Chief Complaint (Nursing): Abdominal Pain Chief Complaint (Provider): abdominal pain/colic History Per: Patient, Family History/Exam Limitations: no limitations Onset/Duration Of Symptoms: Days (two) Current Symptoms Are (Timing): Still Present Location Of Pain/Discomfort: Diffuse Quality Of Discomfort: Unable To Describe, Pressure, "Pain" Associated Symptoms: Nausea, Vomiting. denies: Constipation Exacerbating Factors: None Additional Complaint(s): Pt presents to the ED with complaints of consisent abdominal pain and nausea with limited vomitus; there is no diarhhea; pt also has hypertension and attempts to contril this with metoprolol and amlodiine. The pt family indicates that her abdominal pain is something that happens often without definitive resolution. there is no fever or other symptoms Past Medical History Reviewed: Historical Data, Nursing Documentation, Vital Signs Vital Signs: Last Vital Signs Temp 98 F 07/29/18 17:40 Pulse 90 07/29/18 17:40 Resp 20 07/29/18 17:40 BP 166/89 H 07/29/18 17:40 Pulse Ox 97 07/29/18 17:40 - Medical History PMH: Diabetes, HTN, Hypercholesterolemia, Hyperlipidemia, Chronic Kidney Disease Denies: HIV, Kidney Stones - Family History Family History: States: Unknown Family Hx - Immunization History Hx Tetanus Toxoid Vaccination: Yes Hx Influenza Vaccination: Yes Hx Pneumococcal Vaccination: Yes - Home Medications Home Medications: Past Patient History - Infectious Disease Hx of Infectious Diseases: None - Past Medical History & Family History Past Medical History?: Yes - Past Social History Smoking Status: Never Smoked - CARDIAC Hx Hypercholesterolemia: Yes Hx Hypertension: Yes - PULMONARY Hx Respiratory Disorders: No - NEUROLOGICAL Hx Neurological Disorder: No - HEENT Hx HEENT Problems: No - RENAL Hx Chronic Kidney Disease: Yes - ENDOCRINE/METABOLIC Hx Endocrine Disorders: Yes Hx Diabetes Mellitus Type 2: Yes - HEMATOLOGICAL/ONCOLOGICAL Hx AIDS: No Hx Human Immunodeficiency Virus (HIV): No - INTEGUMENTARY Hx Dermatological Problems: Yes Other/Comment: Dermatitis - MUSCULOSKELETAL/RHEUMATOLOGICAL Hx Musculoskeletal Disorders: Yes Hx Falls: Yes - GASTROINTESTINAL Hx Gastrointestinal Disorders: No - GENITOURINARY/GYNECOLOGICAL Hx Genitourinary Disorders: No - PSYCHIATRIC Hx Psychophysiologic Disorder: No Hx Substance Use: No - SURGICAL HISTORY Hx Surgeries: Yes Other/Comment: left leg sx - ANESTHESIA Hx Anesthesia: Yes Hx Anesthesia Reactions: No Hx Malignant Hyperthermia: No Meds Allergies/Adverse Reactions: Allergies Allergy/AdvReac Type Severity Reaction Status Date / Time No Known Allergies Allergy Verified 05/30/18 08:12 - Medications Medications: Current Medications Allopurinol (Zyloprim) 100 mg PO DAILY [facility] Last Admin: 07/30/18 09:03 Dose: 100 mg Amlodipine Besylate (Norvasc) [address] [facility] Cholecalciferol (Vitamin D) 5,000 intlu PO DAILY [facility] Last Admin: 07/30/18 09:01 Dose: 5,000 intlu Ferrous Gluconate (Fergon) 324 mg PO BID [facility] Last Admin: 07/30/18 08:57 Dose: 324 mg Hydralazine HCl (Apresoline) 50 mg PO Q8 [facility] Last Admin: 07/30/18 12:21 Dose: 50 mg Metoprolol Tartrate (Lopressor) 100 mg PO Q12 [facility] Last Admin: 07/30/18 09:03 Dose: 100 mg Nystatin (Nystop Topical Powder) 1 applic TOP TID [facility] Ondansetron HCl (Zofran Inj) 4 mg IVP Q6 PRN PRN Reason: Nausea/Vomiting Pantoprazole Sodium (Protonix Ec Tab) 40 mg PO BID [facility] Last Admin: 07/30/18 09:00 Dose: 40 mg Results - Vital Signs Recent Vital Signs: Last Vital Signs Temp 98.2 F 07/30/18 16:12 Pulse 77 07/30/18 16:12 Resp 16 07/30/18 16:12 BP 182/84 H 07/30/18 16:12 Pulse Ox 98 07/30/18 16:12 - Labs Result Diagrams: 07/30/18 10:51 07/30/18 10:51 Labs: Laboratory Results - last 24 hr 07/29/18 07/30/18 07/30/18 17:39 10:51 10:51 WBC 9.9 RBC 3.64 L Hgb 10.7 L Hct 33.4 L MCV 91.6 D MCH 29.3 MCHC 32.0 L RDW 14.6 H Plt Count 75 L MPV 9.2 Neut % (Auto) 75.8 H Lymph % (Auto) 16.2 L Major % (Auto) 6.6 Eos % (Auto) 1.0 Baso % (Auto) 0.4 Neut # (Auto) 7.5 H Lymph # (Auto) 1.6 Major # (Auto) 0.7 Eos # (Auto) 0.1 Baso # (Auto) 0.0 Sodium 139 Potassium 5.4 H Chloride 104 Carbon Dioxide 26 Anion Gap 14 BUN 27 H Creatinine 2.7 H Est GFR ( Amer) 21 Est GFR (Non-Af Amer) 17 Random Glucose 357 H Calcium 8.8 Total Bilirubin 0.4 AST 23 ALT 25 Alkaline Phosphatase 64 Total Protein 6.9 Albumin 3.3 L Globulin 3.6 Albumin/Globulin Ratio 0.9 L Urine Color Yellow Urine Clarity Clear Urine pH 7.0 Ur Specific Keavy 1.011 Urine Protein >=500 Urine Glucose (UA) 50 Urine Ketones Negative Urine Blood Negative Urine Nitrate Negative Urine Bilirubin Negative Urine Urobilinogen 0.2-1.0 Ur Leukocyte Esterase Neg Urine RBC (Auto) 2 Urine Microscopic WBC 3 Ur Squamous Epith Cells 1 Hyaline Casts 3-5 H Assessment & Plan - Assessment and Plan (Free Text) Assessment: CKD STAGE 4 WITH E GFR AROUND 18 .. STABLE MMP OUTLINED ABOVE P : C/O CURRENT CARE C/O PRESENT MANAGEMENT RENAL AND DIABETIC DIET .. 2 G NA .. 2 G K .. 50 G PROTIEN .. 1800 ALYSA ADA RENAL FUNCTION SEEMS TO BE STABLE WILL CONTINUE TO F/U - Date & Time Date: 07/30/18 Time: 16:00
--- NOTE | 2018-07-31 00:53 | CARD ---
APPROVED REPORT Date of service: 07/29/2018 EKG Measurement Heart [id number] <Conclusion> Normal sinus rhythm Minimal voltage criteria for LVH, may be normal variant Borderline ECG
[2018-07-31] MEDS: Pantoprazole 40 mg EC Tab PO SCH ×2 (08:44→17:19)
[2018-07-31] MEDS: Cholecalciferol 1,000 INTLU TAB PO SCH (08:45)
[2018-07-31] MEDS ORDERED: Metoprolol 1 mg/ml Inj IVP PRN (14:17)
--- NOTE | 2018-07-31 14:28 | CP.PCM.PCO ---
Assessment/Plan - Assessment and Plan (Free Text) Assessment: Patient seen and examined today BP still elevated, will titrate meds, hydralazine increased to 100mg po TID , metoprolol IV PRN added Patient remains with n/v, not responding to zofran, changed to reglan TID GI consult ordered. Labs reordered for tomorrow, will cont to monitor. Discussed with Dr Tapia who agrees with plan.
[2018-08-01 06:28] LABS: CALCIUM 8.3 mg/dL (8.4-10.2)
[2018-08-01] MEDS: Cholecalciferol 1,000 INTLU TAB PO SCH (08:28)
[2018-08-01] MEDS: Pantoprazole 40 mg EC Tab PO SCH ×2 (08:31→16:24)
--- NOTE | 2018-08-01 14:30 | CP.PCM.PN ---
Subjective - Date & Time of Evaluation Date of Evaluation: 08/01/18 Time of Evaluation: 13:00 - Subjective Subjective: SEEN ON RENAL F/U STILL WITH NAUSEA .. FEELS LITTLE BETTER RENAL FUNCTION STABLE BP STILL HIGH AND K IS HIGH + START CHLORTHALIDONE FOR BOTH Objective - Vital Signs/Intake and Output Vital Signs (last 24 hours): Temp Pulse Resp BP Pulse Ox 98.1 F 79 18 182/74 H 100 08/01/18 12:00 08/01/18 12:00 08/01/18 12:00 08/01/18 12:00 08/01/18 12:00 - Medications Medications: Current Medications Allopurinol (Zyloprim) 100 mg PO DAILY [facility] Last Admin: 08/01/18 08:32 Dose: 100 mg Amlodipine Besylate (Norvasc) 10 mg PO HS [facility] Last Admin: 07/31/18 21:06 Dose: 10 mg Chlorthalidone (Hygroton) 25 mg PO DAILY [facility] Cholecalciferol (Vitamin D) 5,000 intlu PO DAILY [facility] Last Admin: 08/01/18 08:28 Dose: 5,000 intlu Ferrous Gluconate (Fergon) 324 mg PO BID [facility] Last Admin: 08/01/18 08:29 Dose: 324 mg Hydralazine HCl (Apresoline) 100 mg PO Q8 [facility] Last Admin: 08/01/18 08:29 Dose: 100 mg Metoclopramide HCl (Reglan) 10 mg IVP Q6 [facility] Last Admin: 08/01/18 08:59 Dose: 10 mg Metoprolol Tartrate (Lopressor) 100 mg PO Q12 [facility] Last Admin: 08/01/18 08:31 Dose: 100 mg Metoprolol Tartrate (Lopressor) 5 mg IVP Q6 PRN PRN Reason: Diastolic blood pressure Nystatin (Nystop Topical Powder) 1 applic TOP TID [facility] Last Admin: 08/01/18 13:38 Dose: 1 applic Ondansetron HCl (Zofran Inj) 4 mg IVP Q6 PRN PRN Reason: Nausea/Vomiting Last Admin: 07/31/18 12:52 Dose: 4 mg Pantoprazole Sodium (Protonix Ec Tab) 40 mg PO BID [facility] Last Admin: 08/01/18 08:31 Dose: 40 mg - Labs Labs: 07/30/18 10:51 08/01/18 04:10 Assessment and Plan - Assessment and Plan (Free Text) Assessment: CKD STAGE 4 ,, E GFR STABLE ANEMIA OF CKD .. H/H STABLE HTN BP STILL HIGH HYPERKALEMIA MMP P : C/O WITH RENAL DIET 2 G NA . 2 G K . 50 G PROTIEN AND 1800 ALYSA ADA ADD CHLORTHALIDONE 25 MG PO DIALY
--- NOTE | 2018-08-01 20:57 | CON ---
DATE: 08/01/2018 REFERRING DOCTOR: REASON FOR CONSULTATION: Abdominal discomfort. HISTORY OF PRESENT ILLNESS: This is a 72-year-old obese female with a history of hypertension, diabetes, hypercholesterolemia, hyperlipidemia, chronic kidney disease who comes in with abdominal discomfort. The pain is actually improving. Had some diarrhea just now. Had some vomiting, otherwise it is improving. Tolerating clear liquid diet. No apparent distress. PAST MEDICAL HISTORY: As above. PAST SURGICAL HISTORY: As above. MEDICATIONS: Have been reviewed. REVIEW OF SYSTEMS: All other systems have been reviewed and negative apart from the HPI. PHYSICAL EXAMINATION: VITAL SIGNS: Here in the hospital, grossly unremarkable. GENERAL: This is a pleasant elderly appearing female, lying in comfortably in bed, in no apparent distress. HEENT: Head: Normocephalic and atraumatic. Eyes: Pupils are equally reactive to light bilaterally. NECK: Supple. Normal range of motion. No lymphadenopathy appreciated. LUNGS: Coarse breath sounds bilaterally. HEART: S1 and S2, regular rate and rhythm. No S3. ABDOMEN: Soft and nontender. Bowel sounds present. No rebound. No guarding. RECTAL: Deferred. EXTREMITIES: Pulses present bilaterally. SKIN: Warm, dry, and intact. NEUROLOGIC: Alert and oriented x3. LABORATORY DATA: Labs and radiology have been reviewed. WBC is 11.6, down to 9.6; hemoglobin 10.7; hematocrit 33.4. Sodium 134, creatinine is 2.6, which is improving. Sugars were 300 plus, now 135. AST and ALT are normal. CAT scan is grossly unremarkable. ASSESSMENT AND PLAN: This is a 72-year-old female with likely gastroenteritis. From a gastroenterology standpoint, I started H2 blockers. Thank you for the consult. Derrick Strong MD/ PhD
--- NOTE | 2018-08-01 22:23 | CP.PCM.HP ---
History of Present Illness - History of Present Illness History of Present Illness: CC: Vomiting and Abdominal Pain History of Present Illness: A 72yoF with H/O DM II, HTN, SLE, CKD and chronic abdominal pain presented with worsening abdominal pain, Colicky, diffuse associated with Nausea an vomiting. Abdominal pain and vomiting has been intractable despite RX. Denies diarrhea or Fever/chills; Patient was also found to have accelerated HTN which was not controlled with Metoprolol and Amlodiine. Denies fever or chills. The family are concerned about the chronic abdominal pain. No recent GI work up. Chronic DM, and a possibility of Gastroparesis. Present on Admission - Present on Admission Any Indicators Present on Admission: No Review of Systems - Review of Systems All systems: reviewed and no additional remarkable complaints except Review of Systems: as per HPI Past Patient History - Infectious Disease Hx of Infectious Diseases: None - Past Medical History & Family History Past Medical History?: Yes Past Family History: Reviewed and not pertinent - Past Social History Smoking Status: Never Smoked Alcohol: None Drugs: Denies - CARDIAC Hx Hypercholesterolemia: Yes Hx Hypertension: Yes - PULMONARY Hx Respiratory Disorders: No - NEUROLOGICAL Hx Neurological Disorder: No - HEENT Hx HEENT Problems: No - RENAL Hx Chronic Kidney Disease: Yes - ENDOCRINE/METABOLIC Hx Endocrine Disorders: Yes Hx Diabetes Mellitus Type 2: Yes - HEMATOLOGICAL/ONCOLOGICAL Hx AIDS: No Hx Human Immunodeficiency Virus (HIV): No - INTEGUMENTARY Hx Dermatological Problems: Yes Other/Comment: Dermatitis - MUSCULOSKELETAL/RHEUMATOLOGICAL Hx Musculoskeletal Disorders: Yes Hx Falls: Yes - GASTROINTESTINAL Hx Gastrointestinal Disorders: No - GENITOURINARY/GYNECOLOGICAL Hx Genitourinary Disorders: No - PSYCHIATRIC Hx Psychophysiologic Disorder: No Hx Substance Use: No - SURGICAL HISTORY Hx Surgeries: Yes Other/Comment: left leg sx - ANESTHESIA Hx Anesthesia: Yes Hx Anesthesia Reactions: No Hx Malignant Hyperthermia: No Meds Allergies/Adverse Reactions: Allergies Allergy/AdvReac Type Severity Reaction Status Date / Time No Known Allergies Allergy Verified 05/30/18 08:12 Physical Exam - Constitutional Appears: Well, In Acute Distress - Head Exam Head Exam: ATRAUMATIC, NORMAL INSPECTION, NORMOCEPHALIC - Eye Exam Eye Exam: EOMI, Normal appearance, PERRL Pupil Exam: NORMAL ACCOMODATION, PERRL - ENT Exam ENT Exam: Mucous Membranes Moist, Normal Exam - Neck Exam Neck exam: Positive for: Normal Inspection - Respiratory Exam Respiratory Exam: Clear to Auscultation Bilateral, NORMAL BREATHING PATTERN - Cardiovascular Exam Cardiovascular Exam: REGULAR RHYTHM, +S1, +S2 - GI/Abdominal Exam GI & Abdominal Exam: Normal Bowel Sounds, Soft. absent: Tenderness - Extremities Exam Extremities exam: Positive for: normal capillary refill, normal inspection - Back Exam Back exam: NORMAL INSPECTION - Neurological Exam Neurological exam: Alert, CN II-XII Intact, Normal Gait, Oriented x3, Reflexes Normal - Psychiatric Exam Psychiatric exam: Normal Affect, Normal Mood - Skin Skin Exam: Dry, Intact, Normal Color, Warm Results - Vital Signs Recent Vital Signs: Last Vital Signs Temp 98.3 F 08/01/18 19:38 Pulse 80 08/01/18 22:07 Resp 16 08/01/18 19:38 BP 179/78 H 08/01/18 22:07 Pulse Ox 98 08/01/18 19:38 - Labs Result Diagrams: 07/30/18 10:51 08/01/18 04:10 Labs: Laboratory Results - last 24 hr 08/01/18 08/01/18 08/01/18 04:10 05:09 10:49 Sodium 134 Potassium 3.6 Chloride 102 Carbon Dioxide 27 Anion Gap 9 L BUN 22 H Creatinine 2.6 H Est GFR ( Amer) 22 Est GFR (Non-Af Amer) 18 POC Glucose (mg/dL) 135 H 238 H Random Glucose 133 H Calcium 8.3 L 08/01/18 08/01/18 16:09 21:53 Sodium Potassium Chloride Carbon Dioxide Anion Gap BUN Creatinine Est GFR ( Amer) Est GFR (Non-Af Amer) POC Glucose (mg/dL) 213 H 205 H Random Glucose Calcium - EKG Data EKG Interpreted by: Myself EKG shows normal: Sinus rhythm Rate: Normal - Impressions Impression: LV[facility] - Imaging and Cardiology CT abdomen/Pelvis w/contrast: Status: Report reviewed by me Additional comment: Date of service: 07/29/2018 PROCEDURE: CT Abdomen and Pelvis with contrast HISTORY: Abdominal pain COMPARISON: 07/18/2018. TECHNIQUE: CT scan of the abdomen and pelvis was performed after administration of intravenous contrast. Oral contrast was administered. Coronal and sagittal reformatted images were obtained. Radiation dose: Total exam DLP = 931.48 mGy-cm. This CT exam was performed using one or more of the following dose reduction techniques: Automated exposure control, adjustment of the mA and/or kV according to patient size, and/or use of iterative reconstruction technique. FINDINGS: LOWER THORAX: The visualized lungs are clear. LIVER: Normal in size. No gross lesion or ductal dilatation. GALLBLADDER AND BILE DUCTS: Well distended. No calcified gallstones, wall thickening or pericholecystic f luid. PANCREAS: Normal in size. No gross lesion or ductal dilatation. SPLEEN: Normal in size. ADRENALS: No discrete nodule. KIDNEYS AND URETERS: Normal in size. There is a 2 mm nonobstructing stone in the upper pole of the right kidney and mild fullness in the right collecting system. There are punctate nonobstructing stones in both kidneys. VASCULATURE: No aortic aneurysm. BOWEL: The small bowel loops are normal in caliber. Sigmoid diverticulosis without CT evidence for acute diverticulitis. No bowel wall thickening or obstruction. APPENDIX: Normal appendix. PERITONEUM: No free fluid. No free air. LYMPH NODES: No enlarged lymph nodes. BLADDER: Well distended and normal in appearance. The REPRODUCTIVE: Multiple calcified fibroids, the largest on the right measures 5.3 x 6.2 cm. BONES: No acute fracture. Multilevel degenerative changes in the spine, worse at L3-4 G grade 1 anterior listhesis of L3 on L4. OTHER FINDINGS: There is a small sliding hiatal hernia. Small fat containing umbilical hernia. IMPRESSION: No acute abdominal or pelvic abnormalit the y. Punctate nonobstructing stones in both kidneys. 2 mm nonobstructing stone in the upper pole of the right kidney and mild fullness in the right collecting system. No obstructive uropathy. Small sliding hiatal hernia. Chest x-ray Status: Report reviewed by me Additional comment: Date of service: 07/29/2018 HISTORY: r/o pna COMPARISON: 07/18/2018 TECHNIQUE: Chest PA and lateral FINDINGS: LUNGS: No active pulmonary disease. PLEURA: No significant pleural effusion identified. No pneumothorax apparent. CARDIOVASCULAR: No aortic atherosclerotic calcification present. Normal cardiac size. No pulmonary vascular congestion. OSSEOUS STRUCTURES: No significant abnormalities. VISUALIZED UPPER ABDOMEN: Normal. OTHER FINDINGS: None. IMPRESSION: No active disease. Assessment & Plan (1) Abdominal pain Status: Acute Priority: High (2) Gastroparesis due to DM Status: Acute Priority: Medium (3) Intractable vomiting Status: Acute Priority: High (4) Hypertensive urgency Status: Acute Priority: High (5) CKD (chronic kidney disease), stage IV Status: Chronic Priority: Medium (6) Diabetes mellitus type 2 in obese Status: Chronic Priority: Medium (7) SLE (systemic lupus erythematosus) Status: Chronic Priority: Low - Assessment and Plan (Free Text) Plan: NPO except Meds IVF Zofran 4mg IV PRN Reglan RTC Pain medication PRN c/w All home Monitor BMP GI and Nephrology Consult
--- NOTE | 2018-08-01 22:23 | CP.PCM.PN ---
Subjective - Date & Time of Evaluation Date of Evaluation: 07/31/18 Objective - Vital Signs/Intake and Output Vital Signs (last 24 hours): Temp Pulse Resp BP Pulse Ox 98.3 F 80 16 179/78 H 98 08/01/18 19:38 08/01/18 22:07 08/01/18 19:38 08/01/18 22:07 08/01/18 19:38 - Medications Medications: Current Medications Allopurinol (Zyloprim) 100 mg PO DAILY [facility] Last Admin: 08/01/18 08:32 Dose: 100 mg Amlodipine Besylate (Norvasc) 10 mg PO HS [facility] Last Admin: 08/01/18 22:07 Dose: 10 mg Chlorthalidone (Hygroton) 25 mg PO DAILY [facility] Last Admin: 08/01/18 16:23 Dose: 25 mg Cholecalciferol (Vitamin D) 5,000 intlu PO DAILY [facility] Last Admin: 08/01/18 08:28 Dose: 5,000 intlu Ferrous Gluconate (Fergon) 324 mg PO BID [facility] Last Admin: 08/01/18 16:26 Dose: 324 mg Hydralazine HCl (Apresoline) 100 mg PO Q8 [facility] Last Admin: 08/01/18 16:25 Dose: 100 mg Metoclopramide HCl (Reglan) 10 mg IVP Q6 [facility] Last Admin: 08/01/18 22:06 Dose: 10 mg Metoprolol Tartrate (Lopressor) 100 mg PO Q12 [facility] Last Admin: 08/01/18 20:38 Dose: 100 mg Metoprolol Tartrate (Lopressor) 5 mg IVP Q6 PRN PRN Reason: Diastolic blood pressure Nystatin (Nystop Topical Powder) 1 applic TOP TID [facility] Last Admin: 08/01/18 16:24 Dose: 1 applic Ondansetron HCl (Zofran Inj) 4 mg IVP Q6 PRN PRN Reason: Nausea/Vomiting Last Admin: 07/31/18 12:52 Dose: 4 mg Pantoprazole Sodium (Protonix Ec Tab) 40 mg PO BID [facility] Last Admin: 08/01/18 16:24 Dose: 40 mg - Labs Labs: 07/30/18 10:51 08/01/18 04:10
--- NOTE | 2018-08-01 22:24 | CP.PCM.PN ---
Subjective - Date & Time of Evaluation Date of Evaluation: 08/01/18 Time of Evaluation: 15:20 Objective - Vital Signs/Intake and Output Vital Signs (last 24 hours): Temp Pulse Resp BP Pulse Ox 98.3 F 80 16 179/78 H 98 08/01/18 19:38 08/01/18 22:07 08/01/18 19:38 08/01/18 22:07 08/01/18 19:38 - Medications Medications: Current Medications Allopurinol (Zyloprim) 100 mg PO DAILY [facility] Last Admin: 08/01/18 08:32 Dose: 100 mg Amlodipine Besylate (Norvasc) 10 mg PO HS [facility] Last Admin: 08/01/18 22:07 Dose: 10 mg Chlorthalidone (Hygroton) 25 mg PO DAILY [facility] Last Admin: 08/01/18 16:23 Dose: 25 mg Cholecalciferol (Vitamin D) 5,000 intlu PO DAILY [facility] Last Admin: 08/01/18 08:28 Dose: 5,000 intlu Ferrous Gluconate (Fergon) 324 mg PO BID [facility] Last Admin: 08/01/18 16:26 Dose: 324 mg Hydralazine HCl (Apresoline) 100 mg PO Q8 [facility] Last Admin: 08/01/18 16:25 Dose: 100 mg Metoclopramide HCl (Reglan) 10 mg IVP Q6 [facility] Last Admin: 08/01/18 22:06 Dose: 10 mg Metoprolol Tartrate (Lopressor) 100 mg PO Q12 [facility] Last Admin: 08/01/18 20:38 Dose: 100 mg Metoprolol Tartrate (Lopressor) 5 mg IVP Q6 PRN PRN Reason: Diastolic blood pressure Nystatin (Nystop Topical Powder) 1 applic TOP TID [facility] Last Admin: 08/01/18 16:24 Dose: 1 applic Ondansetron HCl (Zofran Inj) 4 mg IVP Q6 PRN PRN Reason: Nausea/Vomiting Last Admin: 07/31/18 12:52 Dose: 4 mg Pantoprazole Sodium (Protonix Ec Tab) 40 mg PO BID [facility] Last Admin: 08/01/18 16:24 Dose: 40 mg - Labs Labs: 07/30/18 10:51 08/01/18 04:10
[2018-08-02] MEDS: Pantoprazole 40 mg EC Tab PO SCH ×2 (08:33→16:52)
[2018-08-02] MEDS: Cholecalciferol 1,000 INTLU TAB PO SCH (08:34)
--- NOTE | 2018-08-02 16:14 | CP.PCM.PN ---
Subjective - Date & Time of Evaluation Date of Evaluation: 08/02/18 Time of Evaluation: 14:00 - Subjective Subjective: SEEN ON RENAL F/U FEELS IMPROVED DENIES NAUSEA OR VOMITTING TODAY D/W PMD ON THE FLOOR .. TO HAVE GI LOOK AT HER RENAL FUNCTION STABLE WITH EGFR AROUND 18 ML/M Objective - Vital Signs/Intake and Output Vital Signs (last 24 hours): Temp Pulse Resp BP Pulse Ox 97.7 F 74 16 170/77 H 98 08/02/18 15:57 08/02/18 15:57 08/02/18 15:57 08/02/18 15:57 08/02/18 15:57 - Medications Medications: Current Medications Allopurinol (Zyloprim) 100 mg PO DAILY [facility] Last Admin: 08/02/18 08:35 Dose: 100 mg Amlodipine Besylate (Norvasc) 10 mg PO HS [facility] Last Admin: 08/01/18 22:07 Dose: 10 mg Chlorthalidone (Hygroton) 25 mg PO DAILY [facility] Last Admin: 08/02/18 08:34 Dose: 25 mg Cholecalciferol (Vitamin D) 5,000 intlu PO DAILY [facility] Last Admin: 08/02/18 08:34 Dose: 5,000 intlu Ferrous Gluconate (Fergon) 324 mg PO BID [facility] Last Admin: 08/02/18 08:34 Dose: 324 mg Hydralazine HCl (Apresoline) 100 mg PO Q8 [facility] Last Admin: 08/02/18 08:32 Dose: 100 mg Insulin Human Lispro (Humalog) 0 units SC [facility]; Protocol Metoclopramide HCl (Reglan) 10 mg IVP Q6 [facility] Last Admin: 08/02/18 10:19 Dose: 10 mg Metoprolol Tartrate (Lopressor) 100 mg PO Q12 [facility] Last Admin: 08/02/18 08:33 Dose: 100 mg Metoprolol Tartrate (Lopressor) 5 mg IVP Q6 PRN PRN Reason: Diastolic blood pressure Nystatin (Nystop Topical Powder) 1 applic TOP TID [facility] Last Admin: 08/02/18 13:37 Dose: 1 applic Ondansetron HCl (Zofran Inj) 4 mg IVP Q6 PRN PRN Reason: Nausea/Vomiting Last Admin: 07/31/18 12:52 Dose: 4 mg Pantoprazole Sodium (Protonix Ec Tab) 40 mg PO BID [facility] Last Admin: 08/02/18 08:33 Dose: 40 mg - Labs Labs: 07/30/18 10:51 08/01/18 04:10 Assessment and Plan - Assessment and Plan (Free Text) Assessment: CKD .. RENAL FUNCTION STABLE ANEMIA OF CKD .. H/H STABLE HYPERKALEMIA .. ON CHLORTHALIDONE 25 MG /D MMP P : C/O CURRENT CARE C/O PRESENT MANAGEMNT
[2018-08-02] MEDS: Insulin Lispro (humaLOG) 100 Units/ml Inj SC SCH ×2 (16:49→21:29)
--- NOTE | 2018-08-02 23:38 | CP.PCM.PN ---
Subjective - Date & Time of Evaluation Date of Evaluation: 08/02/18 Time of Evaluation: 17:25 Objective - Vital Signs/Intake and Output Vital Signs (last 24 hours): Temp Pulse Resp BP Pulse Ox 97.7 F 75 18 161/70 H 97 08/02/18 20:02 08/02/18 21:27 08/02/18 20:02 08/02/18 21:27 08/02/18 20:02 - Medications Medications: Current Medications Allopurinol (Zyloprim) 100 mg PO DAILY [facility] Last Admin: 08/02/18 08:35 Dose: 100 mg Amlodipine Besylate (Norvasc) 10 mg PO HS [facility] Last Admin: 08/02/18 21:27 Dose: 10 mg Chlorthalidone (Hygroton) 25 mg PO DAILY [facility] Last Admin: 08/02/18 08:34 Dose: 25 mg Cholecalciferol (Vitamin D) 5,000 intlu PO DAILY [facility] Last Admin: 08/02/18 08:34 Dose: 5,000 intlu Ferrous Gluconate (Fergon) 324 mg PO BID [facility] Last Admin: 08/02/18 16:50 Dose: 324 mg Hydralazine HCl (Apresoline) 100 mg PO Q8 [facility] Last Admin: 08/02/18 16:51 Dose: 100 mg Insulin Human Lispro (Humalog) 0 units SC [facility]; Protocol Last Admin: 08/02/18 21:29 Dose: Not Given Metoclopramide HCl (Reglan) 10 mg IVP Q6 [facility] Last Admin: 08/02/18 21:31 Dose: 10 mg Metoprolol Tartrate (Lopressor) 100 mg PO Q12 [facility] Last Admin: 08/02/18 21:27 Dose: 100 mg Metoprolol Tartrate (Lopressor) 5 mg IVP Q6 PRN PRN Reason: Diastolic blood pressure Nystatin (Nystop Topical Powder) 1 applic TOP TID [facility] Last Admin: 08/02/18 16:52 Dose: 1 applic Ondansetron HCl (Zofran Inj) 4 mg IVP Q6 PRN PRN Reason: Nausea/Vomiting Last Admin: 07/31/18 12:52 Dose: 4 mg Pantoprazole Sodium (Protonix Ec Tab) 40 mg PO BID [facility] Last Admin: 08/02/18 16:52 Dose: 40 mg - Labs Labs: 07/30/18 10:51 12/28/18 04:10
[2018-08-03] MEDS ORDERED: Metoprolol 1 mg/ml Inj IVP PRN (06:34)
[2018-08-03] MEDS: Insulin Lispro (humaLOG) 100 Units/ml Inj SC SCH ×2 (08:52→13:12)
[2018-08-03] MEDS: Pantoprazole 40 mg EC Tab PO SCH (08:53)
[2018-08-03] MEDS: Cholecalciferol 1,000 INTLU TAB PO SCH (08:53)
[2018-08-03 15:47] VITALS: BP 163/76; PULSE 72; RESP 16; TEMP 98.2; O2SAT 97
--- NOTE | 2018-08-04 01:38 | CP.PCM.DIS ---
Provider - Provider Date of Admission: 07/31/18 14:09 Attending physician: Louann Tapia MD Consults: 07/30/18 11:59 Case Management Referral Routine Comment: Physician Instructions: Reason For Exam: Reason for Referral: Discharge Planning 07/30/18 16:13 Nephrology Consult Routine Comment: Consulting Provider: Anuradha Camacho Consulting Physician: Anuradha Camacho Reason for Consult: CKD 07/31/18 14:18 Gastroenterology Consult Routine Comment: Consulting Provider: Derrick Strong Consulting Physician: Derrick Strong Reason for Consult: gastroperesis Time Spent in preparation of Discharge (in minutes): 25 Diagnosis - Discharge Diagnosis (1) Abdominal pain Status: Acute Priority: High (2) Gastroparesis due to DM Status: Acute Priority: Medium (3) Intractable vomiting Status: Acute Priority: High (4) Hypertensive urgency Status: Acute Priority: High (5) CKD (chronic kidney disease), stage IV Status: Chronic Priority: Medium (6) Diabetes mellitus type 2 in obese Status: Chronic Priority: Medium (7) SLE (systemic lupus erythematosus) Status: Chronic Priority: Low Hospital Course - Lab Results Lab Results: Most Recent Lab Values WBC 9.9 K/uL (4.8-10.8) 07/30/18 10:51 RBC 3.64 Mil/uL (3.80-5.20) L 07/30/18 10:51 Hgb 10.7 g/dL (12.0-16.0) L 07/30/18 10:51 Hct 33.4 % (34.0-47.0) L 07/30/18 10:51 MCV 91.6 fl (81.0-99.0) D 07/30/18 10:51 MCH 29.3 pg (27.0-31.0) 07/30/18 10:51 MCHC 32.0 g/dL (33.0-37.0) L 07/30/18 10:51 RDW 14.6 % (11.5-14.5) H 07/30/18 10:51 Plt Count 75 K/uL (130-400) L 07/30/18 10:51 MPV 9.2 fl (7.2-11.7) 07/30/18 10:51 Neut % (Auto) 75.8 % (50.0-75.0) H 07/30/18 10:51 Lymph % (Auto) 16.2 % (20.0-40.0) L 07/30/18 10:51 [place] % (Auto) 6.6 % (0.0-10.0) 07/30/18 10:51 Eos % (Auto) 1.0 % (0.0-4.0) 07/30/18 10:51 Baso % (Auto) 0.4 % (0.0-2.0) 07/30/18 10:51 Neut # (Auto) 7.5 K/uL (1.8-7.0) H 07/30/18 10:51 Lymph # (Auto) 1.6 K/uL (1.0-4.3) 07/30/18 10:51 [place] # (Auto) 0.7 K/uL (0.0-0.8) 07/30/18 10:51 Eos # (Auto) 0.1 K/uL (0.0-0.7) 07/30/18 10:51 Baso # (Auto) 0.0 K/uL (0.0-0.2) 07/30/18 10:51 Sodium 134 mmol/l (132-148) 08/01/18 04:10 Potassium 3.6 MMOL/L (3.6-5.0) 08/01/18 04:10 Chloride 102 mmol/L (98-107) 08/01/18 04:10 Carbon Dioxide 27 mmol/L (22-30) 08/01/18 04:10 Anion Gap 9 (10-20) L 08/01/18 04:10 BUN 22 mg/dl (7-17) H 08/01/18 04:10 Creatinine 2.6 mg/dl (0.7-1.2) H 08/01/18 04:10 Est GFR ( Amer) 08/01/18 04:10 Est GFR (Non-Af Amer) 18 08/01/18 04:10 POC Glucose (mg/dL) 238 mg/dL (65-110) H 08/03/18 10:41 Random Glucose 133 mg/dL (65-105) H 08/01/18 04:10 Calcium 8.3 mg/dL (8.4-10.2) L 08/01/18 04:10 Total Bilirubin 0.4 mg/dl (0.2-1.3) 07/30/18 10:51 AST 23 U/L (14-36) 07/30/18 10:51 ALT 25 U/L (9-52) 07/30/18 10:51 Alkaline Phosphatase 64 U/L (38-126) 07/30/18 10:51 Troponin I 0.0250 ng/mL (0.00-0.120) 07/29/18 12:44 NT-Pro-B Natriuret Pep 1790 pg/ml (0-900) H 07/29/18 12:44 Total Protein 6.9 G/DL (6.3-8.2) 07/30/18 10:51 Albumin 3.3 g/dL (3.5-5.0) L 07/30/18 10:51 Globulin 3.6 gm/dL (2.2-3.9) 07/30/18 10:51 Albumin/Globulin Ratio 0.9 (1.0-2.1) L 07/30/18 10:51 Plasma Cortisol PM 13.8 ug/dL (1.7-14.1) 07/31/18 16:40 Urine Color Yellow (YELLOW) 07/29/18 17:39 Urine Clarity Clear (Clear) 07/29/18 17:39 Urine pH 7.0 (5.0-8.0) 07/29/18 17:39 Ur Specific [place] 1.011 (1.003-1.030) 07/29/18 17:39 Urine Protein >=500 mg/dL (NEGATIVE) 07/29/18 17:39 Urine Glucose (UA) 50 mg/dL (NEGATIVE) 07/29/18 17:39 Urine Ketones Negative mg/dL (NEGATIVE) 07/29/18 17:39 Urine Blood Negative (NEGATIVE) 07/29/18 17:39 Urine Nitrate Negative (NEGATIVE) 07/29/18 17:39 Urine Bilirubin Negative (NEGATIVE) 07/29/18 17:39 Urine Urobilinogen 0.2-1.0 mg/dL (0.2-1.0) 07/29/18 17:39 Ur Leukocyte Esterase Neg John/uL (Negative) 07/29/18 17:39 Urine RBC (Auto) 2 /hpf (0-3) 07/29/18 17:39 Urine Microscopic WBC 3 /hpf (0-5) 07/29/18 17:39 Ur Squamous Epith Cells 1 /hpf (0-5) 07/29/18 17:39 Hyaline Casts 3-5 /hpf (0-2) H 07/29/18 17:39 Influenza Typ A,B (EIA) Negative for flu a/b (NEGATIVE) 07/29/18 12:44 Discharge Exam - Head Exam Head Exam: ATRAUMATIC, NORMAL INSPECTION, NORMOCEPHALIC Discharge Plan - Follow Up Plan Condition: FAIR Disposition: HOME/ ROUTINE Instructions: Acute Abdomen (Belly Pain), Adult (DC), Nausea and Vomiting, Adult (DC) Additional Instructions: Follow up with primary care physician in 1 week. Increase Hydralazine to 100mg. Call Dr. Tapia if vomiting Referrals: Louann Tapia MD [Staff Provider] -
--- NOTE | 2018-08-04 15:03 | PQF ---
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 includes: 1) Abdominal pain Status: Acute Priority: High (2) Gastroparesis due to DM Status: Acute Priority: Medium (3) Intractable vomiting Status: Acute Priority: High The patient's Clinical Indicators include: -- Query created by: Lacey Sahu on 08/04/2018 11:27 AM Electronically signed by: Louann Tapia MD 08/04/2018 3:00 PM
== END 2018-08-03 16:19 | disposition home or self-care (01) | DRG 74 ==
LOC: H.ER 11:04 → H.ERHOLD 22:22 → H.TEL 07-30 11:11 → OBSVTOIN 07-31 14:09
PROVIDERS: ADMIT Internal Medicine; ATTEND Internal Medicine
DX: E11.43 Type 2 diabetes mellitus with diabetic autonomic (poly)neuropathy (principal); N18.4 Chronic kidney disease, stage 4 (severe); R10.9 Unspecified abdominal pain; K52.9 Noninfective gastroenteritis and colitis, unspecified; K44.9 Diaphragmatic hernia without obstruction or gangrene; E11.22 Type 2 diabetes mellitus with diabetic chronic kidney disease; I12.9 Hypertensive chronic kidney disease with stage 1 through stage 4 chronic kidney disease, or unspecified chronic kidney disease; D63.1 Anemia in chronic kidney disease; D25.9 Leiomyoma of uterus, unspecified; E66.9 Obesity, unspecified; E78.00 Pure hypercholesterolemia, unspecified; E78.5 Hyperlipidemia, unspecified; E87.5 Hyperkalemia; I16.0 Hypertensive urgency; K31.84 Gastroparesis; K42.9 Umbilical hernia without obstruction or gangrene; K82.8 Other specified diseases of gallbladder; M32.9 Systemic lupus erythematosus, unspecified; N20.0 Calculus of kidney; Z79.51 Long term (current) use of inhaled steroids; G89.29 Other chronic pain; L30.9 Dermatitis, unspecified; Z79.899 Other long term (current) drug therapy

== ENCOUNTER 2018-09-07 16:26 | Emergency (ER) | payer MEDICARE, MEDICAID ==
[2018-09-07 16:27] VITALS: BMI 36.9
[2018-09-07 18:19] LABS: BASO # 0.1 K/uL (0.0-0.2); BASO % 0.9 % (0.0-2.0); EOS # 0.5 K/uL (0.0-0.7); EOS % 4.8 % (0.0-4.0); HEMOGLOBIN 8.3 g/dL (12.0-16.0); LYMPH # 2.3 K/uL (1.0-4.3); LYMPH % 23.6 % (20.0-40.0); MEAN CELL VOLUME 89.4 fl (81.0-99.0); MEAN CORPUSCULAR HEMOGLOBIN 29.5 pg (27.0-31.0); MEAN CORPUSCULAR HGB CONC 33.1 g/dL (33.0-37.0); MEAN PLATELET VOLUME 9.8 fl (7.2-11.7); MONO # 1.1 K/uL (0.0-0.8); MONO % 11.3 % (0.0-10.0); NEUT # 5.7 K/uL (1.8-7.0); NEUT % 59.4 % (50.0-75.0); NRBC % 0.1 % (0.0-0.0); RBC 2.81 Mil/uL (3.80-5.20); RED CELL DISTRIBUTION WIDTH 15.6 % (11.5-14.5); WHITE BLOOD COUNT 9.6 K/uL (4.8-10.8)
[2018-09-07 18:24] LABS: ALB/GLOB RATIO 0.9 (1.0-2.1); ALBUMIN 3.4 g/dL (3.5-5.0); ALT/SGPT 32 U/L (9-52); AST/SGOT 33 U/L (14-36); BLOOD UREA NITROGEN 37 mg/dl (7-17); CALCIUM 9.2 mg/dL (8.4-10.2); GFR NON-AFRICAN AMERICAN 13
[2018-09-07 18:41] LABS: B-TYPE NATRIURETIC PEPTIDE 855 pg/ml (0-900)
--- NOTE | 2018-09-07 18:41 | ED PDOC ---
Syncope/Near Syncope/Dizziness Time Seen by Provider: 09/07/18 16:59 Chief Complaint (Nursing): Dizziness/Lightheaded Chief Complaint (Provider): Dizziness/Lightheaded History Per: Patient History/Exam Limitations: no limitations Additional Complaint(s): Yaneth Wynn is a 72 year old female with a past medical history of diabetes, HTN, HLD, CKD, and hypercholesterolemia, who presents to the emergency department complaining of weakness that started earlier today. Patient states when she took her blood pressure at home, it was read as a systolic of 70, prompting her to come to the ED. She states she has a normal appetite but denies having chest pain, shortness of breath, headache, blurry vision, focal weakness, nausea, or any recent infectious symptoms. Patient states that this has happened to her before and that her blood pressure goes up and down unpredictably. 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 PMD: Cate Cabeazs Past Medical History Reviewed: Historical Data, Nursing Documentation, Vital Signs Vital Signs: Last Vital Signs Temp 97.9 F 09/07/18 16:36 Pulse 75 09/07/18 17:24 Resp 18 09/07/18 17:24 BP 153/74 H 09/07/18 17:24 Pulse Ox 96 09/07/18 17:24 - Medical History PMH: Diabetes, HTN, Hypercholesterolemia, Hyperlipidemia, Chronic Kidney Disease Denies: HIV, Kidney Stones - Surgical History Other surgeries: partial foot amputation - Family History Family History: States: Unknown Family Hx - Immunization History Hx Tetanus Toxoid Vaccination: Yes Hx Influenza Vaccination: Yes Hx Pneumococcal Vaccination: Yes - Home Medications Home Medications: Ambulatory Orders Medication Instructions Recorded RX: Dexlansoprazole [Dexilant] 30 mg PO DAILY 03/14/18 RX: Ferrous Gluconate 324 mg PO BID 03/14/18 RX: Metoprolol Tartrate [Lopressor] 100 mg PO Q12 03/14/18 RX: hydrALAZINE [Apresoline] 50 mg PO Q8 #90 tab 06/06/18 RX: Allopurinol [Zyloprim] 100 mg PO DAILY 06/28/18 RX: Cholecalciferol [Vitamin D 5,000 units PO DAILY 07/18/18 1000 IU] RX: amLODIPine [Norvasc] 10 mg PO HS #30 tab 07/21/18 RX: Hydroxychloroquine Sulfate 200 mg PO BID 07/30/18 RX: Pantoprazole Sodium [Protonix] 40 mg PO BID 07/30/18 Ciprofloxacin HCl [Cipro] 250 mg PO BID #6 tab 09/07/18 - Allergies Allergies/Adverse Reactions: Allergies Allergy/AdvReac Type Severity Reaction Status Date / Time No Known Allergies Allergy Verified 09/07/18 16:40 Review of Systems ROS Statement: Except As Marked, All Systems Reviewed And Found Negative Constitutional: Positive for: Weakness Eyes: Negative for: Vision Change Cardiovascular: Negative for: Chest Pain Respiratory: Negative for: Shortness of Breath Gastrointestinal: Negative for: Nausea Neurological: Negative for: Weakness, Headache Physical Exam - Reviewed Nursing Documentation Reviewed: Yes Vital Signs Reviewed: Yes - Physical Exam Appears: Positive for: No Acute Distress Head Exam: Positive for: ATRAUMATIC, NORMOCEPHALIC Skin: Positive for: Warm, Dry Eye Exam: Positive for: EOMI, PERRL ENT: Negative for: Pharyngeal Erythema, Tonsillar Exudate Neck: Positive for: Painless ROM, Supple Cardiovascular/Chest: Positive for: Regular Rate, Rhythm. Negative for: Murmur Respiratory: Positive for: Normal Breath Sounds. Negative for: Respiratory Distress Gastrointestinal/Abdominal: Positive for: Soft. Negative for: Tenderness Back: Positive for: Normal Inspection Extremity: Positive for: Other (venous stasis changes in bilateral lower legs with dark shoemaker skin to her distal lateral tibia to her foot (chronic); foot has a partial amputation) Lymphatic: Negative for: Adenopathy Neurologic/Psych: Positive for: Alert. Negative for: Motor/Sensory Deficits - Laboratory Results Result Diagrams: 09/07/18 17:52 09/07/18 17:52 Lab Results: Total Bilirubin 0.2 mg/dl (0.2-1.3) 09/07/18 17:52 AST 33 U/L (14-36) 09/07/18 17:52 ALT 32 U/L (9-52) 09/07/18 17:52 Alkaline Phosphatase 79 U/L (38-126) 09/07/18 17:52 Total Protein 7.1 G/DL (6.3-8.2) 09/07/18 17:52 Albumin 3.4 g/dL (3.5-5.0) L 09/07/18 17:52 Globulin 3.7 gm/dL (2.2-3.9) 09/07/18 17:52 Albumin/Globulin Ratio 0.9 (1.0-2.1) L 09/07/18 17:52 - ECG O2 Sat by Pulse Oximetry: 96 (RA) Pulse Ox Interpretation: Normal Medical Decision Making Medical Decision Making: Time: 1751 Impression: Weakness Differential diagnosis includes but is not limited to: electrolyte abnormali ties, dehydration, UTI, layby blood pressure Plan: --EKG --CMP --Magnesium --Phosphorous --B-type natriuretic peptide --Troponin I --Thyroid stimulating hormone --CBC with differential --Glucose --Urinalysis --Saline Lock --Glucose, Blood, POC --Urinary Straight Catheter Labs demonstrate anemia. Pt reports history of this for which she is currently taking iron. Labs also c/w CKD. At this time pt feeling better and eager to be discharged. Scribe Attestation: Documented by Tom Anaya, acting as a scribe for Josy Trejo MD. Provider Scribe Attestation: All medical record entries made by the Scribe were at my direction and personally dictated by me. I have reviewed the chart and agree that the record accurately reflects my personal performance of the history, physical exam, medical decision making, and the department course for this patient. I have also personally directed, reviewed, and agree with the discharge instructions and disposition. Disposition - Clinical Impression Clinical Impression: Dizziness, UTI (urinary tract infection) - Disposition Referrals: Cate Cabezas MD [Family Provider] - 09/08/18 ([facility]) Disposition: Routine/Home Disposition Time: 20:00 Condition: STABLE Additional Instructions: REGRESA SI [facility]. Prescriptions: Ciprofloxacin HCl [Cipro] 250 mg PO BID #6 tab Instructions: Anemia Caused by Low Iron, Adult (DC), Dizziness, Nonvertigo, (DC) Print Language: ENGLISH
[2018-09-07 19:22] VITALS: BP 162/86; PULSE 91; RESP 20; TEMP 98.1
[2018-09-07 20:08] LABS: SQUAMOUS EPITHIAL 3 /hpf (0-5); URINE BACTERIA MANY (<OCC); URINE BILIRUBIN NEGATIVE (NEGATIVE); URINE BLOOD SMALL (NEGATIVE); URINE CLARITY TURBID (Clear); URINE COLOR YELLOW (YELLOW); URINE GLUCOSE (UA) NEG (NEGATIVE); URINE LEUKOCYTE ESTERASE LARGE Leu/uL (Negative); URINE PROTEIN >=500 mg/dL (NEGATIVE); URINE UROBILINOGEN 0.2-1.0 mg/dL (0.2-1.0); WBC CLUMPS MOD /hpf
--- NOTE | 2018-09-07 23:52 | CARD ---
APPROVED REPORT Date of service: 09/07/2018 EKG Measurement Heart [id number] <Conclusion> Normal sinus rhythm Minimal voltage criteria for LVH, may be normal variant Borderline ECG
[2018-09-08 01:00] VITALS: O2SAT 96
== END 2018-09-07 19:55 | disposition home or self-care (01) ==
LOC: H.ER 16:26
DX: R42 Dizziness and giddiness (principal); N39.0 Urinary tract infection, site not specified; I12.9 Hypertensive chronic kidney disease with stage 1 through stage 4 chronic kidney disease, or unspecified chronic kidney disease; N18.9 Chronic kidney disease, unspecified